=== PATIENT | male | born 1990 | race Caucasian/White ===

== ENCOUNTER 2016-06-03 13:10 | Emergency (ER) | payer BC ==
[2016-06-03] MEDS ORDERED: HYDROmorphone 1 MG/ML SYRINGE IVP STA (14:34)
[2016-06-03] MEDS ORDERED: HYDROmorphone 1 MG/ML SYRINGE ONE (14:41)
[2016-06-03] MEDS ORDERED: SODIUM CHLORIDE 0.9% 1,000 ML IV ONE (14:55)
[2016-06-03] MEDS ORDERED: oxyCODONE 5 MG TABLET PO STA (15:24)
[2016-06-03] MEDS ORDERED: oxyCODONE 5 MG TABLET ONE (15:26)
[2016-06-03] MEDS ORDERED: LIDOCAINE VISCOUS 2% 15 ML UDC MM STA (16:32)
[2016-06-03] MEDS ORDERED: MAG HYDROX/AL HYDROX/SIMETH 30 ML UDC PO STA (16:32)
[2016-06-03] MEDS ORDERED: SUCRALFATE 1 GM/10 ML UDC PO STA (16:32)
[2016-06-03] MEDS ORDERED: MAG HYDROX/AL HYDROX/SIMETH 30 ML UDC ONE (16:38)
[2016-06-03] MEDS ORDERED: SUCRALFATE 1 GM/10 ML UDC ONE (16:38)
[2016-06-03] MEDS ORDERED: LIDOCAINE VISCOUS 2% 15 ML UDC MM ONE (16:38)
== END 2016-06-03 17:05 | disposition home or self-care (01) ==
DX: K85.20 Alcohol induced acute pancreatitis without necrosis or infection (principal); R73.9 Hyperglycemia, unspecified

== ENCOUNTER 2016-06-03 23:05 | Inpatient (IN) | payer BC ==
[2016-06-03] MEDS ORDERED: LIDOCAINE VISCOUS 2% 15 ML UDC MM STA (23:38)
[2016-06-03] MEDS ORDERED: MAG HYDROX/AL HYDROX/SIMETH 30 ML UDC PO STA (23:38)
[2016-06-03] MEDS ORDERED: ONDANSETRON 4 MG/2 ML VIAL IVP STA (23:38)
[2016-06-03] MEDS ORDERED: FAMOTIDINE 20 MG/50 ML 50 ML IV ONE ×2 (23:38→23:41)
[2016-06-03] MEDS ORDERED: SODIUM CHLORIDE 0.9% 1,000 ML IV ONE (23:38)
[2016-06-03] MEDS ORDERED: LIDOCAINE VISCOUS 2% 15 ML UDC MM ONE (23:41)
[2016-06-03] MEDS ORDERED: MAG HYDROX/AL HYDROX/SIMETH 30 ML UDC ONE (23:41)
[2016-06-03] MEDS ORDERED: ONDANSETRON 4 MG/2 ML VIAL ONE (23:41)
[2016-06-04] MEDS ORDERED: fentaNYL 100 MCG/2 ML VIAL IVP STA (00:15)
[2016-06-04] MEDS ORDERED: PROMETHAZINE INJ 12.5 MG in SODIUM CHLORIDE 0.9% 50 ML IV STA (00:15)
[2016-06-04] MEDS ORDERED: HYDROmorphone 1 MG/ML SYRINGE IVP PRN ×3 (00:57→01:12)
[2016-06-04] MEDS ORDERED: SODIUM CHLORIDE FLUSH 0.9% 10 ML SYRINGE IVP PRN ×2 (00:57→01:17)
[2016-06-04] MEDS ORDERED: oxyCODONE 5 MG TABLET PO PRN ×3 (00:57→01:12)
[2016-06-04] MEDS ORDERED: ONDANSETRON 4 MG/2 ML VIAL IVP PRN ×4 (00:57→01:17)
[2016-06-04] MEDS ORDERED: ACETAMINOPHEN 325 MG TABLET PO PRN ×3 (00:57→01:12)
[2016-06-04] MEDS ORDERED: SODIUM CHLORIDE 0.9% 1,000 ML IV SCH (01:00)
[2016-06-04] MEDS: HYDROmorphone 1 MG/ML SYRINGE IVP PRN ×11 (01:26→22:22)
[2016-06-04] MEDS: SODIUM CHLORIDE 0.9% 1,000 ML IV SCH ×5 (01:46→22:20)
[2016-06-04] MEDS ORDERED: INSULIN REGULAR HUMAN 100 UNIT/1 ML 10 ML MDV ONE (03:51)
[2016-06-04] MEDS: SODIUM CHLORIDE FLUSH 0.9% 10 ML SYRINGE IVP SCH ×3 (05:30→20:36)
[2016-06-04] MEDS ORDERED: INSULIN REGULAR HUMAN 100 UNIT/1 ML 10 ML MDV SUBQ SCH (06:00)
[2016-06-04] MEDS ORDERED: SODIUM CHLORIDE FLUSH 0.9% 10 ML SYRINGE IVP SCH ×3 (06:00)
[2016-06-04] MEDS: oxyCODONE 5 MG TABLET PO PRN ×3 (06:20→18:35)
[2016-06-04] MEDS ORDERED: HEPARIN 5,000 UNIT/ML VIAL SUBQ SCH ×3 (09:00)
[2016-06-04] MEDS ORDERED: FAMOTIDINE 20 MG TABLET PO SCH (09:00)
[2016-06-04] MEDS: HEPARIN 5,000 UNIT/ML VIAL SUBQ SCH ×2 (09:08→20:36)
[2016-06-04] MEDS: FAMOTIDINE 20 MG TABLET PO SCH (09:08)
[2016-06-04] MEDS: SERTRALINE 50 MG TABLET PO SCH (09:09)
[2016-06-04] MEDS: INSULIN REGULAR HUMAN 100 UNIT/1 ML 10 ML MDV SUBQ SCH ×2 (12:38→18:34)
[2016-06-04] MEDS ORDERED: ATORVASTATIN 40 MG TABLET PO SCH (21:00)
[2016-06-05] MEDS: ZOLPIDEM 5 MG TABLET PO PRN ×2 (00:03→23:52)
[2016-06-05] MEDS: INSULIN REGULAR HUMAN 100 UNIT/1 ML 10 ML MDV SUBQ SCH ×5 (00:03→23:54)
[2016-06-05] MEDS: SODIUM CHLORIDE 0.9% 1,000 ML IV SCH ×4 (04:38→23:57)
[2016-06-05] MEDS: SODIUM CHLORIDE FLUSH 0.9% 10 ML SYRINGE IVP SCH ×3 (06:24→21:26)
[2016-06-05] MEDS: GEMFIBROZIL 600 MG TABLET PO SCH ×2 (06:29→16:09)
[2016-06-05] MEDS: ACETAMINOPHEN 325 MG TABLET PO PRN ×2 (06:46→10:54)
[2016-06-05] MEDS: SERTRALINE 50 MG TABLET PO SCH (08:09)
[2016-06-05] MEDS: oxyCODONE 5 MG TABLET PO PRN ×4 (08:09→23:52)
[2016-06-05] MEDS: FAMOTIDINE 20 MG TABLET PO SCH (08:10)
[2016-06-05] MEDS: HEPARIN 5,000 UNIT/ML VIAL SUBQ SCH ×2 (08:10→20:07)
[2016-06-05] MEDS: HYDROmorphone 1 MG/ML SYRINGE IVP PRN ×4 (13:14→21:29)
[2016-06-06] MEDS: HYDROmorphone 1 MG/ML SYRINGE IVP PRN ×2 (04:12→07:00)
[2016-06-06] MEDS: oxyCODONE 5 MG TABLET PO PRN ×3 (05:17→18:47)
[2016-06-06] MEDS: SODIUM CHLORIDE 0.9% 1,000 ML IV SCH (05:59)
[2016-06-06] MEDS: INSULIN REGULAR HUMAN 100 UNIT/1 ML 10 ML MDV SUBQ SCH ×2 (06:04→11:30)
[2016-06-06] MEDS: GEMFIBROZIL 600 MG TABLET PO SCH ×2 (07:00→15:32)
[2016-06-06] MEDS: SODIUM CHLORIDE FLUSH 0.9% 10 ML SYRINGE IVP SCH ×3 (07:45→21:28)
[2016-06-06] MEDS: FAMOTIDINE 20 MG TABLET PO SCH (08:31)
[2016-06-06] MEDS: ACETAMINOPHEN 325 MG TABLET PO PRN ×2 (08:31→21:31)
[2016-06-06] MEDS: SERTRALINE 50 MG TABLET PO SCH (08:31)
[2016-06-06] MEDS: HEPARIN 5,000 UNIT/ML VIAL SUBQ SCH ×2 (08:33→21:27)
[2016-06-06] MEDS: POLYETHYLENE GLYCOL 3350 17 GM PACKET PO SCH (10:12)
[2016-06-06] MEDS ORDERED: GLUCAGON 1 MG/ML VIAL SUBQ PRN (12:13)
[2016-06-06] MEDS ORDERED: DEXTROSE 5% 1,000 ML IV PRN (12:13)
[2016-06-06] MEDS ORDERED: DEXTROSE GEL 37.5 GM TUBE PO PRN (12:13)
[2016-06-06] MEDS ORDERED: DEXTROSE 50% ABBOJECT 25 GM/50 ML SYRINGE IVP PRN (12:13)
[2016-06-06] MEDS ORDERED: HYDROmorphone 1 MG/ML SYRINGE IVP PRN (14:53)
[2016-06-06] MEDS ORDERED: metFORMIN 500 MG TABLET PO SCH (17:00)
[2016-06-06] MEDS: INSULIN ASPART 300 UNIT/3 ML PEN SUBQ SCH ×2 (17:30→21:27)
[2016-06-06] MEDS ORDERED: ASPIRIN EC 325 MG TABLET PO PRN (17:40)
[2016-06-06] MEDS: ZOLPIDEM 5 MG TABLET PO PRN (23:57)
[2016-06-07] MEDS: GEMFIBROZIL 600 MG TABLET PO SCH (06:13)
[2016-06-07] MEDS: SODIUM CHLORIDE FLUSH 0.9% 10 ML SYRINGE IVP SCH (06:14)
[2016-06-07] MEDS: INSULIN ASPART 300 UNIT/3 ML PEN SUBQ SCH ×2 (08:01→11:44)
[2016-06-07] MEDS: FAMOTIDINE 20 MG TABLET PO SCH (09:47)
[2016-06-07] MEDS: SERTRALINE 50 MG TABLET PO SCH (09:48)
[2016-06-07] MEDS: HEPARIN 5,000 UNIT/ML VIAL SUBQ SCH (09:48)
[2016-06-07] MEDS: POLYETHYLENE GLYCOL 3350 17 GM PACKET PO SCH (09:52)
== END 2016-06-07 13:10 | disposition home or self-care (01) | DRG 439 ==
DX: K85.20 Alcohol induced acute pancreatitis without necrosis or infection (principal); F10.188 Alcohol abuse with other alcohol-induced disorder; Z68.41 Body mass index [BMI] 40.0-44.9, adult; E11.9 Type 2 diabetes mellitus without complications; E66.01 Morbid (severe) obesity due to excess calories; K86.0 Alcohol-induced chronic pancreatitis; E78.1 Pure hyperglyceridemia; F32.9 Major depressive disorder, single episode, unspecified; R00.0 Tachycardia, unspecified; E78.5 Hyperlipidemia, unspecified; Z71.3 Dietary counseling and surveillance; R73.9 Hyperglycemia, unspecified

== ENCOUNTER 2018-03-04 01:05 | Inpatient (IN) | payer BC, MEDICAID ==
[2018-03-04 01:24] LABS: GLUCOSE, URINE (UA) 100 mg/dL (NEGATIVE); KETONES,URINE (UA) >=80 mg/dL (NEGATIVE); LEUKOCYTE ESTERASE, URINE NEGATIVE (NEGATIVE); NITRITE,URINE NEGATIVE (NEGATIVE); OCCULT BLOOD,URINE SMALL (NEGATIVE); PH,URINE 5.5 PH (5.0-7.5); PROTEIN,URINE 100 mg/dL (NEGATIVE); UROBILINOGEN,URINE 0.2 (NORMAL) E.U./dL (NORMAL)
[2018-03-04 01:39] LABS: BILIRUBIN,URINE NEGATIVE (NEGATIVE); CLARITY,URINE CLEAR (CLEAR); ICTOTEST,URINE NEGATIVE
[2018-03-04 01:40] LABS: BACTERIA,URINE Few /HPF (None Seen); RBC,URINE 0-5 /HPF (0-5); SQUAMOUS EPITHELIAL CELL,UR MOD Squamous (<= Few)
--- NOTE | 2018-03-04 02:20 | CT Report ---
Reason: left flank pain Procedure Date: 03/04/2018 Accession Number: [id number] / [id number] Procedure: CT - Abdomen/Pelvis W/O CPT Code: FULL RESULT: EXAM: CT ABDOMEN AND PELVIS EXAM DATE: 03/04/2018 02:01 AM. CLINICAL HISTORY: Left flank pain. COMPARISONS: ABDOMEN/PELVIS W/ 09/08/2014 12:41 PM. TECHNIQUE: Routine helical CT imaging was performed through the abdomen and pelvis. IV contrast: . Enteric contrast: No. Reconstructions: Coronal and sagittal. In accordance with CT protocol optimization, one or more of the following dose reduction techniques were utilized for this exam: automated exposure control, adjustment of mA and/or KV based on patient size, or use of iterative reconstructive technique. FINDINGS: Lung Bases: Unremarkable. Liver: There is diffuse fatty infiltration of the liver. No focal lesions. Gallbladder/Bile Ducts: Unremarkable. Spleen: Spleen is normal in size. There is a low attenuating lesion in the mid spleen likely representing a splenic cyst. This measures 18 mm and is unchanged. Pancreas: The pancreas is slightly edematous and there is stranding of the fat around the pancreas. Some of the stranding extends to the posterior wall of the stomach and to a portion of the transverse colon. This peripancreatic inflammation also is contiguous with the celiac axis and partially surrounds the portal vein. There are no loculated fluid collections. Adrenal Glands: Normal. Kidneys: Normal. No masses or hydronephrosis. Peritoneal Cavity/Bowel: Normal. No free fluid, free air or adenopathy. No masses or acute inflammatory process. The appendix is well visualized and normal. Pelvic Organs: Normal. The bladder and visualized pelvic organs are within normal limits. Vasculature: No aneurysms or other significant abnormality. Bones: No significant abnormality. Other: There is a small amount of free fluid in the pelvis. IMPRESSION: 1. Findings compatible with acute pancreatitis. No pancreatic pseudocysts. Small amount of peritoneal fluid in the pelvis. 2. Diffuse fatty infiltration of the liver. 3. No renal calculi. RADIA
[2018-03-04 02:22] LABS: BASOPHILS # (AUTO) 0.1 10^3/uL (0.0-0.1); BASOPHILS % (AUTO) 0.7 %; EOSINOPHILS # (AUTO) 0.1 10^3/uL (0.0-0.7); EOSINOPHILS % (AUTO) 1.8 %; LYMPHOCYTES # (AUTO) 1.4 10^3/uL (1.5-3.5); LYMPHOCYTES % (AUTO) 18.3 %; MEAN CORPUSCULAR HEMOGLOBIN 34.6 pg (27.0-31.0); MEAN CORPUSCULAR HGB CONC 35.3 g/dL (32.0-36.0); MEAN CORPUSCULAR VOLUME 97.9 fL (80.0-94.0); MEAN PLATELET VOLUME 8.8 fL (7.4-11.4); MONOCYTES # (AUTO) 0.7 10^3/uL (0.0-1.0); MONOCYTES % (AUTO) 9.2 %; NEUTROPHILS # (AUTO) 5.3 10^3/uL (1.5-6.6); PLT - PLATELET COUNT 149 10^3/uL (130-450); WHITE BLOOD COUNT 7.6 x10^3/uL (4.8-10.8)
--- NOTE | 2018-03-04 02:30 | ED Physician Documentation ---
PD HPI BACK PAIN - Stated complaint Stated Complaint: BACK PAIN - Chief complaint Chief Complaint: Abd Pain - History obtained from History obtained from: Patient - History of Present Illness Timing - onset: How many days ago (3) Timing - duration: Days (3) Timing - details: Gradual onset, Still present, Waxing and waning Location: Mid, Left Quality: Pain, Spasm, Sharp, Similar to prior episodes Associated symptoms: No: Fever, Weakness, Numbness, Incontinent of urine, Unable to urinate, Hematuria, Incontinent of stool Improves with: Rest Worsened by: Movement Similar symptoms before: Diagnosis (back strain) Recently seen: Not recently seen - Additional information Additional information: 27-year-old male with a history of pancreatitis to the emergency department this morning complaining of pain in his back on the left side he has had for the past 2-3 days. He states this pain is better on arrival to the ED. He is noted to be diaphoretic and he has no explanation for this. He does not appear in pain on arrival. Review of Systems Constitutional: reports: Fatigue, Sweats. denies: Fever, Chills Eyes: denies: Decreased vision Ears: denies: Ear pain Nose: denies: Rhinorrhea / runny nose, Congestion Throat: denies: Dental pain / toothache, Sore throat Cardiac: denies: Chest pain / pressure, Palpitations Respiratory: denies: Dyspnea, Cough GI: reports: Abdominal Pain, Nausea, Vomiting : denies: Dysuria, Frequency Skin: denies: Rash Musculoskeletal: reports: Back pain. denies: Neck pain, Extremity pain Neurologic: denies: Generalized weakness, Focal weakness, Numbness PD PAST MEDICAL HISTORY - Past Medical History Cardiovascular: None Respiratory: None Endocrine/Autoimmune: None GI: Pancreatitis : None HEENT: None Psych: Anxiety Musculoskeletal: None Derm: None - Past Surgical History Past Surgical History: No - Present Medications Home Medications: Ambulatory Orders Medication Instructions Recorded Confirmed Sertraline HCl [Zoloft] 25 mg PO DAILY 07/05/14 06/03/16 Ondansetron Odt [Zofran Odt] 4 mg TL Q6H PRN #10 tablet 06/03/16 06/03/16 Oxycodone HCl/Acetaminophen 1 - 2 each PO Q6H PRN #14 tablet 06/03/16 06/03/16 [Percocet 5-325 mg Tablet] Blood Sugar Diagnostic [Glucometer 1 each ACHS #100 strip 06/07/16 Strips] Blood-Glucose Meter [Glucometer] 1 each ONCE #1 kit 06/07/16 Famotidine [Pepcid] 20 mg PO DAILY tablet 06/07/16 Gemfibrozil [Lopid] 600 mg PO BIDAC 30 Days tablet 06/07/16 Insulin Aspart [NovoLOG] 1 - 9 unit SUBQ 06/07/16 0800,1200,1700,2100 #60 pen - Allergies Allergies/Adverse Reactions: Allergies Allergy/AdvReac Type Severity Reaction Status Date / Time Sulfa (Sulfonamide Allergy Intermediate Rash Verified 03/04/18 01:17 Antibiotics) - Social History Does the pt smoke?: No Smoking Status: Never smoker Does the pt drink ETOH?: Yes Does the pt have substance abuse?: No - Immunizations Immunizations are current?: Yes - POLST Patient has POLST: No PD ED PE NORMAL - Vitals Vital signs reviewed: Yes (tachy and hypertensive maked) - General General: Alert and oriented X 3, No acute distress, Well developed/nourished, Other (diaphoretic ) - HEENT HEENT: Atraumatic, PERRL, EOMI - Neck Neck: Supple, no meningeal sign, No bony TTP - Cardiac Cardiac: No murmur, Other (tachy to 100) - Respiratory Respiratory: No respiratory distress, Clear bilaterally - Abdomen Abdomen: Soft, Non tender - Back Back: No CVA TTP, No spinal TTP - Derm Derm: Normal color, Warm and dry, No rash - Extremities Extremities: No deformity, No edema - Neuro Neuro: Alert and oriented X 3, 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, No motor deficit, No sensory deficit, Normal speech Eye Opening: Spontaneous Motor: Obeys Commands Verbal: Oriented GCS Score: 15 - Psych Psych: Normal mood, Normal affect Results - Vitals Vitals: Vital Signs - 24 hr 03/04/18 01:05 Temperature 36.9 C Heart Rate 111 H Respiratory 18 Rate Blood Pressure 170/125 H O2 Saturation 97 Oxygen O2 Source Room air - Labs Labs: Laboratory Tests 03/04/18 03/04/18 01:15 02:10 WBC 7.6 RBC 5.20 Hgb 18.0 Hct 50.9 MCV 97.9 H MCH 34.6 H MCHC 35.3 RDW 13.0 Plt Count 149 MPV 8.8 Neut # (Auto) 5.3 Lymph # (Auto) 1.4 L [place] # (Auto) 0.7 Eos # (Auto) 0.1 Baso # (Auto) 0.1 Absolute Nucleated RBC 0.00 Nucleated RBC % 0.1 Urine Color DARK YELLOW Urine Clarity CLEAR Urine pH 5.5 Ur Specific [place] >=1.030 H Urine Protein 100 H Urine Glucose (UA) 100 H Urine Ketones >=80 H Urine Occult Blood SMALL H Urine Nitrite NEGATIVE Urine Bilirubin NEGATIVE Urine Urobilinogen 0.2 (NORMAL) Ur Leukocyte Esterase NEGATIVE Urine RBC 0-5 Urine WBC 4-5 Ur Squamous Epith Cells MOD Squamous H Urine Bacteria Few Ur Microscopic Review INDICATED Urine Culture Comments NOT INDICATED - Rads (name of study) CT ab/pel without Radiology: Prelim report reviewed (Impression: 1. Findings compatible with acute pancreatitis. No pancreatic pseudocyst. Small amount of peritoneal fluid in the pelvis. 2 Diffuse fatty infiltration of liver. 3 no renal calculi.), EMP read indepedently, See rad report Procedures - Bedside sono Bedside sono by EMP: with the use of bedside ultrasound the left kidney is imaged and there is no e vidence of hydro and the kidney is sonographically non-tender. PD MEDICAL DECISION MAKING - ED course Complexity details: reviewed old records, reviewed results, re-evaluated patient, considered differential, d/w patient, d/w family ED course: 27-year-old male with a prior history of hyperlipidemia and alcohol abuse with a history of 3 prior admissions for pancreatitis has fallen off the wagon and began drinking again. He has had abdominal pain and nausea for several days and has stopped eating. He comes into the emergency department this morning complaining of back pain and this led to consideration for kidney stone as he really had no tenderness over the back or kidney and had no problems moving around. This scan showed the obvious acute pancreatitis. The patient was vague in his history initially complaining only of a pain in his back that he thought some pain medication might help. After he was confronted with the findings of pancreatitis on the CT scan he did come forth with the drinking history and abdominal pain when prompted. He indicates drinking for more than 16 days straight and he indicates he quit 2 days ago. He is diaphoretic with elevated blood pressure and pulse but he is not shaking. An IV is begun is administered intravenous saline and Dilaudid Zofran and Ativan. Departure - Departure Disposition: [facility] DC/Xfer Clinical Impression: Alcoholic pancreatitis Qualifiers: Chronicity: acute Acute pancreatitis complication: unspecified Qualified Code(s): K85.20 - Alcohol induced acute pancreatitis without necrosis or infection Condition: Serious
[2018-03-04] MEDS ORDERED: SODIUM CHLORIDE 0.9% 1,000 ML IV ONE ×2 (02:36→19:58)
[2018-03-04] MEDS ORDERED: HYDROmorphone 1 MG/ML CARPUJECT IVP STA (02:40)
[2018-03-04] MEDS ORDERED: LORazepam 2 MG/ML VIAL IVP STA (02:40)
[2018-03-04] MEDS ORDERED: ONDANSETRON 4 MG/2 ML VIAL IVP STA (02:40)
[2018-03-04 03:04] LABS: ALBUMIN 4.9 g/dL (3.2-5.5); ALBUMIN/GLOBULIN RATIO 1.4 (1.0-2.2); ALKALINE PHOSPHATASE 84 IU/L (42-121); ALT ALANINE AMINOTRANSFERASE 126 IU/L (10-60); AST ASPARTATE AMINOTRANSFERASE 83 IU/L (10-42); BUN - BLOOD UREA NITROGEN 11 mg/dL (6-20); CALCIUM 8.8 mg/dL (8.5-10.3); CARBON DIOXIDE - CO2 22 mmol/L (21-32); CHLORIDE 90 mmol/L (101-111); CREATININE 0.8 mg/dL (0.6-1.2); GFR - MDRD 118 (>89); GLUCOSE 229 mg/dL (70-100); SODIUM 132 mmol/L (135-145); TOTAL PROTEIN 8.3 g/dL (6.7-8.2)
[2018-03-04 03:07] LABS: LIPASE 913 U/L (22-51)
[2018-03-04] MEDS ORDERED: HYDROmorphone 1 MG/ML CARPUJECT IVP PRN (03:19)
[2018-03-04] MEDS ORDERED: ONDANSETRON 4 MG/2 ML VIAL IVP PRN ×2 (03:19→08:40)
[2018-03-04] MEDS ORDERED: PROMETHAZINE 25 MG/1 ML VIAL IM PRN (03:19)
[2018-03-04] MEDS ORDERED: PROCHLORPERAZINE 10 MG/2 ML VIAL IVP PRN (03:19)
[2018-03-04] MEDS: SODIUM CHLORIDE 0.9% 1,000 ML IV SCH ×3 (04:24→19:58)
--- NOTE | 2018-03-04 04:24 | HISTORY & PHYSICAL EXAMINATION ---
Chief Complaint - Chief Complaint Chief Complaint: Back pain History of Present Illness - Admitted From Admitted From:: Emergency department - History Obtained From Records Reviewed: Yes History obtained from: Patient Exam Limitations: None - History of Present Illness HPI Comment/Other: Patient is a 27-year-old gentleman with a past medical history significant for hypertriglyceridemia, morbid obesity, depression, alcohol abuse, fatty liver disease, insulin-dependent diabetes and recurrent pancreatitis who presented to the emergency department with a chief complaint of back pain. The patient has had 3 previous hospitalizations for alcoholic pancreatitis and alcoholic gastritis most recently he was admitted in May 2016. The patient states that since his last hospitalization he went quite a few months without drinking but then started drinking again. He states for the better part of the last year he has been drinking almost on a daily basis. He states he drinks about 4 large glasses of vodka a night. He states that over the last month he has been drinking more heavily because he has been feeling depressed. He states that he has been drinking every night until just 2 nights ago. He states that 2 days ago he began to develop back pain, nausea and vomiting. He states the pain was mostly located in the back but occasionally he would get some epigastric pain. He states he has had no appetite and has not eaten anything for the last 3 days. He states that his pain in his back and his epigastric area of his abdomen has been getting worse over the last 2 days to a point where today it was no longer tolerable and so he came into the emergency department. The patient states he has been having nausea and several episodes of vomiting over the last few days. He states he has not been able to eat anything at all for at least the last 2 days. The patient states he has stopped taking his insulin months ago because he just has not felt like taking it. He does take sertraline and metformin but those are the only 2 medications he takes with consistency. 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 The patient denies any fevers or chills. He denies any diarrhea. He denies any urinary urgency frequency or dysuria. He denies any focal neurologic deficits. Patient denies any headaches, blurred vision, runny nose, sore throat, nasal congestion, difficulty swallowing, chest pain, cough, shortness of air, orthopnea, PND, increased lower extremity swelling, muscle aches, joint pain, joint swelling, neck stiffness, recent unintentional weight loss, hair loss, skin changes, rash, polyuria, polydipsia, dizziness, lightheadedness, night sweats or any focal neurologic deficits. On presentation to the emergency department the patient was afebrile however he was tachycardic with a heart rate of 111 and hypertensive with a blood pressure of 170/125. The patient was not in any respiratory distress but he was in acute distress as he seems to be in a significant amount of pain. In the emergency room the patient was given a dose of IV Dilaudid, 1 L of IV fluid and IV Zofran. The patient's lab tests revealed that the patient has some mild hyponatremia and hypochloremia with an elevated glucose of 229. The patient's LFTs were all elevated as he had a total bilirubin of 3.0, AST of 83 and ALT of 126. The patient's lipase was significantly elevated at 913. The patient had a normal CBC but did have a slightly elevated MCV. The patient's blood alcohol level was negative. The patient underwent a CT of his abdomen and pelvis which revealed findings compatible with acute pancreatitis. There was no pancreatic pseudocysts but there was diffuse fatty infiltration of the liver. The patient was admitted [facility] the [facility] for acute alcoholic pancreatitis. History - Past Medical History Cardiovascular: reports: Hypertension, High cholesterol Respiratory: reports: None Neuro: reports: Headaches Endocrine/Autoimmune: reports: Type 2 diabetes GI: reports: Pancreatitis, Hepatitis, Other (Fatty liver disease) : reports: None HEENT: reports: None Psych: reports: Depression, Anxiety Musculoskeletal: reports: None Derm: reports: None MRSA Hx?: No - Family & Social History Family History: Mother: Alive and Well, Hypertension, Mental Illness, Father: Alive and Well Family History Comment/Other: Grandmother also had hypertension and father has atrial fibrillation. Living arrangement: At home Living Situation: With family Social History Notes: The patient lives in [place], [place] with his parents. He is single and does not have any children. 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 He drinks 4 glasses of vodka nightly and smokes a vapor pen. He denies any other illicit drug use. - POLST Patient has POLST: No POLST Status: Full Code Meds/Allgy - Home Medications Home Medications: Ambulatory Orders Medication Instructions Recorded Confirmed Sertraline HCl [Zoloft] 25 mg PO DAILY 07/05/14 06/03/16 Ondansetron Odt [Zofran Odt] 4 mg TL Q6H PRN #10 tablet 06/03/16 06/03/16 Oxycodone HCl/Acetaminophen 1 - 2 each PO Q6H PRN #14 tablet 06/03/16 06/03/16 [Percocet 5-325 mg Tablet] Blood Sugar Diagnostic [Glucometer 1 each ACHS #100 strip 06/07/16 Strips] Blood-Glucose Meter [Glucometer] 1 each ONCE #1 kit 06/07/16 Famotidine [Pepcid] 20 mg PO DAILY tablet 06/07/16 Gemfibrozil [Lopid] 600 mg PO BIDAC 30 Days tablet 06/07/16 Insulin Aspart [NovoLOG] 1 - 9 unit SUBQ 06/07/16 0800,1200,1700,2100 #60 pen - Allergies Allergies/Adverse Reactions: Allergies Allergy/AdvReac Type Severity Reaction Status Date / Time Sulfa (Sulfonamide Allergy Intermediate Rash Verified 03/04/18 01:17 Antibiotics) Review of Systems - Other Findings Other Findings: A comprehensive review of systems was performed the pertinent positives and negatives are stated above in the HPI and the remainder of the review of systems is negative. Prior Level of Functionality: Patient is able to perform all his activities of daily living independently. Exam - Vital Signs Reviewed Vital Signs: Yes Vital Signs: Vital Signs x48h Temp Pulse Resp BP Pulse Ox 03/04/18 03:36 97 15 175/121 H 96 03/04/18 02:47 82 15 178/122 H 95 03/04/18 01:05 36.9 C 111 H 18 170/125 H 97 - Physical Exam General Appearance: positive: Alert, Mild distress (Patient is grimacing with pain in his back), Other (Patient has a ketotic odor) Eyes Bilateral: positive: Normal inspection, PERRL, EOMI, No lid inflammation, Conjunctivae nml, Other (Scleral icterus present) ENT: positive: ENT inspection nml, Pharynx nml, Dry mucous membranes. negative: Purulent nasal drainage, Pharyngeal erythema, Oral lesions Neck: positive: Nml inspection, Thyroid nml, No JVD, Trachea midline Respiratory: positive: Chest non-tender, No respiratory distress, Breath sounds nml. negative: Wheezes, Rales, Rhonchi Cardiovascular: positive: Regular rate & rhythm, No murmur, No gallop Peripheral Pulses: positive: 2+ Abdomen: positive: No organomegaly, Nml bowel sounds, No distention, Tenderness (Patient has mild epigastric tenderness but otherwise has a benign abdominal examination as the belly is soft, nondistended, without peritoneal signs.). negative: Guarding, Rebound, Hepatomegaly Back: positive: Nml inspection. negative: CVA tenderness (R) Skin: positive: No rash, Warm, Dry, Other (Jaundiced appearing) Extremities: positive: Non-tender, Full ROM, Nml appearance Neurologic/Psychiatric: positive: Oriented x3, CN's nml (2-12), Motor nml, Sensation nml, Mood/affect nml Conclusion/Plan - Problem List (1) Alcoholic pancreatitis Conclusion/Plan: Patient presented with back pain and epigastric pain along with nausea and vomiting. Patient has been having symptoms for the last 2 days and they have become progressively worse. The patient is also been having poor appetite and has not eaten for 3 days. The patient admits to drinking excessive amount of alcohol especially over the last month. The patient has history of recurrent alcoholic pancreatitis and has been admitted to the hospital in the past for pancreatitis. The patient underwent CT of his abdomen and pelvis which did reveal acute pancreatitis along with fatty liver. The patient had no evidence of gallstones or cholecystitis. The patient did have elevated LFTs. Patient's lipase was elevated at 913. Plan: N.p.o. for bowel rest IV fluids IV Dilaudid for pain IV Zofran and Compazine for nausea control Monitor lipase and amylase along with LFTs Lipid panel to rule out hypertriglyceridemia as possible cause Abdominal ultrasound to rule out CBD stone Patient counseled on need for alcohol cessation Qualifiers: Chronicity: acute Acute pancreatitis complication: unspecified Qualified Code(s): K85.20 - Alcohol induced acute pancreatitis without necrosis or infection (2) Alcoholic hepatitis Conclusion/Plan: The patient's LFTs are elevated with a bilirubin of 3.0, AST of 83 and ALT of 126. Although this is not the typical AST to ALT ratio for someone with alcoholic hepatitis it is believed that the patient likely has elevated liver enzymes due to alcoholic hepatitis as he has been drinking quite heavily and has developed pancreatitis. 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 On presentation the patient has hyperglycemia with a blood glucose of 229. The patient states he does take metformin at home. The patient is also noncompliant with a diabetic diet. Plan: Patient was given counseling on the need for compliance and the risks of chronically uncontrolled blood glucose. We will hold patient's metformin Patient will be placed on n.p.o. sliding scale insulin We will check patient's hemoglobin A1c We will monitor patient's blood glucose 4 times daily Nutrition consult Qualifiers: Diabetes mellitus type: type 2 Diabetes mellitus termination clerk insulin use: without intermediate use Diabetes mellitus complication status: with hyperglycemia Qualified Code(s): E11.65 - Type 2 diabetes mellitus with hyperglycemia (4) Hypertension Conclusion/Plan: The patient is very hypertensive on presentation to the emergency department with a blood pressure of 170/125 and was persistently hypertensive while he was in the emergency department. The patient was a likely hypertensive secondary to his ongoing pain. The patient's pain will be treated and will continue to monitor the patient's blood pressure. If the patient's blood pressure remains persistently high even when his pain is controlled we will need to consider starting the patient on an antihypertensive medication. Qualifiers: Hypertension type: unspecified Qualified Code(s): I10 - Essential (primary) hypertension (5) Hyponatremia Conclusion/Plan: The patient is being admitted for acute pancreatitis and presents with a sodium of 132. The patient appears to be quite dry and dehydrated and likely has hypovolemic hyponatremia. The patient will be given IV fluids and we will continue to monitor his sodium. (6) Alcohol abuse Conclusion/Plan: The patient has a history of alcohol abuse and continues to drink alcohol on a daily basis. He drinks 4 drinks of vodka every night. The patient states he has never had withdrawal and he is gone 2 days now without drinking. The patient does have an elevated MCV. The patient has cut back his drinking in the past after episodes of pancreatitis. The patient has diffuse fatty infiltration of his liver likely secondary to his alcohol abuse and hypertriglyceridemia. As well as obesity and diabetes. I spent a long time cou nseling the patient on the need to quit drinking as it is doing further and further damage to his pancreas and his liver. The patient seemed to understand and does want to improve his health. A lot of the patient's drinking is secondary to depression. The patient will be given appropriate resources for dealing with his depression by social work. Plan: Check B12 and folate Monitor for symptoms of withdrawal IV fluids Social work consult (7) Depression Conclusion/Plan: Patient has a history of depression. According to him he has been drinking more heavily secondary to depression over the last month. Patient is on sertraline at home. Once patient is able to tolerate oral meds we will restart his sertraline. The patient appears to have slightly depressed mood on examination. Patient states that he drinks to deal with his depression. Patient was counseled on the need to seek help for his depression and not self medicate with alcohol or drugs. Qualifiers: Depression Type: major depressive disorder (8) Obesity (BMI 30.0-34.9) Conclusion/Plan: The patient has obesity with a BMI of 34.9. The patient was counseled on the risks involved with long-term obesity. The patient has already had some of the effects of obesity as he is developed diabetes, has hypertriglyceridemia, fatty liver and also appears to be developing hypertension. The patient was advised to exercise, eat right and make lifestyle changes to help him lose at least 15- 20 pounds. (9) Hypertriglyceridemia Conclusion/Plan: Patient has a history of hypertriglyceridemia and has been on gemfibrozil in the past but is noncompliant with medications currently. The patient's previous triglyceride level was in the 900s. Since the patient has developed pancreat itis once again we will check his lipid profile today. If his triglycerides continue to be elevated we will start him back up on gemfibrozil. (10) Non compliance w medication regimen Conclusion/Plan: The patient has a history of noncompliance with medication. The patient admits to being noncompliant with his medication currently. The patient was counseled on the need to be compliant with medications. He was also counseled on the need to quit drinking alcohol. A long time was spent with the patient discussing the risks of continuing to be noncompliant. The patient seemed to understand the conversation and I am hoping that this gets through to him. - Lab Results Lab results reviewed: Yes Fish Bones: 03/04/18 02:10 03/04/18 02:10 Other Lab Results: Laboratory Results WBC 7.6 x10^3/uL (4.8-10.8) 03/04/18 02:10 RBC 5.20 10^6/uL (4.70-6.10) 03/04/18 02:10 Hgb 18.0 g/dL (14.0-18.0) 03/04/18 02:10 Hct 50.9 % (42.0-52.0) 03/04/18 02:10 MCV 97.9 fL (80.0-94.0) H 03/04/18 02:10 MCH 34.6 pg (27.0-31.0) H 03/04/18 02:10 MCHC 35.3 g/dL (32.0-36.0) 03/04/18 02:10 RDW 13.0 % (12.0-15.0) 03/04/18 02:10 Plt Count 149 10^3/uL (130-450) 03/04/18 02:10 MPV 8.8 fL (7.4-11.4) 03/04/18 02:10 Neut # (Auto) 5.3 10^3/uL (1.5-6.6) 03/04/18 02:10 Lymph # (Auto) 1.4 10^3/uL (1.5-3.5) L 03/04/18 02:10 Foard # (Auto) 0.7 10^3/uL (0.0-1.0) 03/04/18 02:10 Eos # (Auto) 0.1 10^3/uL (0.0-0.7) 03/04/18 02:10 Baso # (Auto) 0.1 10^3/uL (0.0-0.1) 03/04/18 02:10 Absolute Nucleated RBC 0.00 x10^3/uL 03/04/18 02:10 Nucleated RBC % 0.1 /100WBC 03/04/18 02:10 Sodium 132 mmol/L (135-145) L 03/04/18 02:10 Potassium 4.2 mmol/L (3.5-5.0) 03/04/18 02:10 Chloride 90 mmol/L (101-111) L 03/04/18 02:10 Carbon Dioxide 22 mmol/L (21-32) 03/04/18 02:10 Anion Gap 20.0 (6-13) H 03/04/18 02:10 BUN 11 mg/dL (6-20) 03/04/18 02:10 Creatinine 0.8 mg/dL (0.6-1.2) 03/04/18 02:10 Estimated GFR (MDRD) 118 (>89) 03/04/18 02:10 Glucose 229 mg/dL (70-100) H 03/04/18 02:10 Calcium 8.8 mg/dL (8.5-10.3) 03/04/18 02:10 Total Bilirubin 3.0 mg/dL (0.2-1.0) H 03/04/18 02:10 AST 83 IU/L (10-42) H 03/04/18 02:10 ALT 126 IU/L (10-60) H 03/04/18 02:10 Alkaline Phosphatase 84 IU/L (42-121) 03/04/18 02:10 Total Protein 8.3 g/dL (6.7-8.2) H 03/04/18 02:10 Albumin 4.9 g/dL (3.2-5.5) 03/04/18 02:10 Globulin 3.4 g/dL (2.1-4.2) 03/04/18 02:10 Albumin/Globulin Ratio 1.4 (1.0-2.2) 03/04/18 02:10 Lipase 913 U/L (22-51) H 03/04/18 02:10 Urine Color DARK YELLOW 03/04/18 01:15 Urine Clarity CLEAR (CLEAR) 03/04/18 01:15 Urine pH 5.5 PH (5.0-7.5) 03/04/18 01:15 Ur Specific [place] >=1.030 (1.002-1.030) H 03/04/18 01:15 Urine Protein 100 mg/dL (NEGATIVE) H 03/04/18 01:15 Urine Glucose (UA) 100 mg/dL (NEGATIVE) H 03/04/18 01:15 Urine Ketones >=80 mg/dL (NEGATIVE) H 03/04/18 01:15 Urine Occult Blood SMALL (NEGATIVE) H 03/04/18 01:15 Urine Nitrite NEGATIVE (NEGATIVE) 03/04/18 01:15 Urine Bilirubin NEGATIVE (NEGATIVE) 03/04/18 01:15 Urine Urobilinogen 0.2 (NORMAL) E.U./dL (NORMAL) 03/04/18 01:15 Ur Leukocyte Esterase NEGATIVE (NEGATIVE) 03/04/18 01:15 Urine RBC 0-5 /HPF (0-5) 03/04/18 01:15 Urine WBC 4-5 /HPF (0-3) 03/04/18 01:15 Ur Squamous Epith Cells MOD Squamous (<= Few) H 03/04/18 01:15 Urine Bacteria Few /HPF (None Seen) 03/04/18 01:15 Ur Microscopic Review INDICATED 03/04/18 01:15 Urine Culture Comments NOT INDICATED 03/04/18 01:15 Ethyl Alcohol < 5.0 mg/dL 03/04/18 02:10 - Diagnostic Imaging Results Diagnostic Imaging Results: positive: Final report reviewed Diagnostic Imaging Results Comments: CT abdomen/pelvis: 1. Findings compatible with acute pancreatitis. No pancreatic pseudocyst. Small amount of peritoneal fluid in the pelvis. 2. Diffuse fatty infiltration of the liver. 3. No renal calculi Core Measures - Anticipated LOS I expect patient to be DC'd or transferred within 96 hours.: Yes - DVT/VTE - Prophylaxis VTE/DVT Device ordered at admit?: Yes
[2018-03-04] MEDS: SODIUM CHLORIDE FLUSH 0.9% 10 ML SYRINGE IVP PRN (04:25)
[2018-03-04] MEDS ORDERED: HYDROmorphone 2 MG/ML VIAL ONE (05:25)
[2018-03-04] MEDS: INSULIN REGULAR HUMAN 100 UNIT/1 ML 10 ML MDV SUBQ SCH ×3 (05:56→18:00)
[2018-03-04 06:07] LABS: BASOPHILS % (AUTO) 0.4 %; EOSINOPHILS # (AUTO) 0.1 10^3/uL (0.0-0.7); HGB - HEMOGLOBIN 17.1 g/dL (14.0-18.0); LYMPHOCYTES # (AUTO) 1.1 10^3/uL (1.5-3.5); LYMPHOCYTES % (AUTO) 17.9 %; MEAN CORPUSCULAR HEMOGLOBIN 34.8 pg (27.0-31.0); MEAN CORPUSCULAR HGB CONC 35.5 g/dL (32.0-36.0); MEAN CORPUSCULAR VOLUME 98.1 fL (80.0-94.0); MEAN PLATELET VOLUME 9.1 fL (7.4-11.4); MONOCYTES # (AUTO) 0.5 10^3/uL (0.0-1.0); MONOCYTES % (AUTO) 8.4 %; NEUTROPHILS # (AUTO) 4.5 10^3/uL (1.5-6.6); NEUTROPHILS % (AUTO) 71.3 %; PLT - PLATELET COUNT 121 10^3/uL (130-450); RED BLOOD COUNT 4.92 10^6/uL (4.70-6.10); RED CELL DISTRIBUTION WIDTH 12.9 % (12.0-15.0); WHITE BLOOD COUNT 6.4 x10^3/uL (4.8-10.8)
[2018-03-04 06:26] LABS: INR 1.1 (0.8-1.2); PT - PROTHROMBIN TIME 12.8 secs (9.9-12.6)
[2018-03-04 06:42] LABS: FOLATE 5.74 ng/mL (5.90 - >24.8)
[2018-03-04 06:44] LABS: ALBUMIN 4.3 g/dL (3.2-5.5); ALBUMIN/GLOBULIN RATIO 1.4 (1.0-2.2); ALKALINE PHOSPHATASE 74 IU/L (42-121); ALT ALANINE AMINOTRANSFERASE 113 IU/L (10-60); AMYLASE 308 U/L (28-100); AST ASPARTATE AMINOTRANSFERASE 71 IU/L (10-42); BILIRUBIN,TOTAL 3.5 mg/dL (0.2-1.0); BUN - BLOOD UREA NITROGEN 10 mg/dL (6-20); CALCIUM 8.2 mg/dL (8.5-10.3); CARBON DIOXIDE - CO2 20 mmol/L (21-32); CHLORIDE 94 mmol/L (101-111); CHOL/HDL RATIO 3.5 (<5.0); CHOLESTEROL 207 mg/dL; CREATININE 0.7 mg/dL (0.6-1.2); GFR - MDRD 137 (>89); GLUCOSE 223 mg/dL (70-100); HDL CHOLESTEROL 59 mg/dL; LDL CHOLESTEROL,CALCULATED 105 mg/dL; LDL/HDL RATIO 1.8 (<3.6); LIPASE 946 U/L (22-51); MAGNESIUM 1.5 mg/dL (1.7-2.8); PHOSPHORUS 2.8 mg/dL (2.5-4.6); SODIUM 132 mmol/L (135-145); TOTAL PROTEIN 7.3 g/dL (6.7-8.2); VLDL CHOLESTEROL 43 mg/dL
[2018-03-04] MEDS: HYDROmorphone 1 MG/ML CARPUJECT IVP PRN ×8 (07:25→22:18)
[2018-03-04 07:58] LABS: HEMOGLOBIN A1C 1.36 g/dL; HEMOGLOBIN A1C % 9.1 % (4.6-6.2)
[2018-03-04] MEDS ORDERED: MAGNESIUM SULFATE 2 GRAM 2 GM/50 ML BAG IV ONE (08:00)
[2018-03-04] MEDS: MULTIVITAMIN 10 ML, FOLIC ACID INJ 1 MG, THIAMINE INJ 100 MG, MAGNESIUM SULFATE 2 GM in... IV SCH ×5 (08:41)
[2018-03-04] MEDS ORDERED: LORazepam 2 MG/ML VIAL IVP PRN (08:52)
--- NOTE | 2018-03-04 08:53 | PROVIDER PROGRESS NOTE ---
Subjective - Prog Note Date Prog Note Date: 03/04/18 Prog Note Time: 08:52 - Subjective Pt reports feeling: Improved Objective - Vital Signs/Intake & Output Reviewed Vital Signs: Yes Vital Signs: Vital Signs x48h Temp Pulse Pulse Resp BP BP Pulse Ox 03/04/18 08:00 37.0 C 89 20 169/102 H 98 03/04/18 05:20 36.9 C 85 16 96 03/04/18 03:45 37.0 C 90 17 164/104 H 96 03/04/18 03:36 97 15 175/121 H 96 03/04/18 02:47 82 15 178/122 H 95 03/04/18 01:05 36.9 C 111 H 18 170/125 H 97 Intake & Output: Intake & Output 03/01/18 03/02/18 03/03/18 03/04/18 23:59 23:59 23:59 23:59 Intake Total 1200 Balance 1200 - Lab Results Fish Bones: 03/04/18 05:45 03/04/18 05:45 Other Labs: Lab Results x24hrs 03/04/18 03/04/18 03/04/18 Range/Units 05:49 05:45 05:45 WBC (4.8-10.8) x10^3/uL RBC (4.70-6.10) 10^6/uL Hgb (14.0-18.0) g/dL Hct (42.0-52.0) % MCV (80.0-94.0) fL MCH (27.0-31.0) pg MCHC (32.0-36.0) g/dL RDW (12.0-15.0) % Plt Count (130-450) 10^3/uL MPV (7.4-11.4) fL Neut # (Auto) (1.5-6.6) 10^3/uL Lymph # (Auto) (1.5-3.5) 10^3/uL [place] # (Auto) (0.0-1.0) 10^3/uL Eos # (Auto) (0.0-0.7) 10^3/uL Baso # (Auto) (0.0-0.1) 10^3/uL Absolute Nucleated RBC x10^3/uL Nucleated RBC % /100WBC PT (9.9-12.6) secs INR (0.8-1.2) Sodium (135-145) mmol/L Potassium (3.5-5.0) mmol/L Chloride (101-111) mmol/L Carbon Dioxide (21-32) mmol/L Anion Gap (6-13) BUN (6-20) mg/dL Creatinine (0.6-1.2) mg/dL Estimated GFR (MDRD) (>89) Glucose (70-100) mg/dL POC Whole Bld Glucose 236 H (70 - 100) mg/dL Glycated Hemoglobin 9.1 H (4.6-6.2) % Estim Average Glucose 214 H (70-100) Lactic Acid (0.5-2.2) mmol/L Calcium (8.5-10.3) mg/dL Phosphorus (2.5-4.6) mg/dL Magnesium (1.7-2.8) mg/dL Total Bilirubin (0.2-1.0) mg/dL AST (10-42) IU/L ALT (10-60) IU/L Alkaline Phosphatase (42-121) IU/L Total Protein (6.7-8.2) g/dL Albumin (3.2-5.5) g/dL Globulin (2.1-4.2) g/dL Albumin/Globulin Ratio (1.0-2.2) Triglycerides ( - 149) mg/dL Cholesterol ( - 199) mg/dL LDL Cholesterol, Calc ( - 129) mg/dL VLDL Cholesterol mg/dL HDL Cholesterol (60 - ) mg/dL LDL/HDL Ratio (<3.6) Cholesterol/HDL Ratio (<5.0) Amylase (28-100) U/L Lipase (22-51) U/L Vitamin B12 581 (180-914) pg/mL Folate 5.74 L (5.90 - >24.8) ng/mL Urine Color Urine Clarity (CLEAR) Urine pH (5.0-7.5) PH Ur Specific [place] (1.002-1.030) Urine Protein (NEGATIVE) mg/dL Urine Glucose (UA) (NEGATIVE) mg/dL Urine Ketones (NEGATIVE) mg/dL Urine Occult Blood (NEGATIVE) Urine Nitrite (NEGATIVE) Urine Bilirubin (NEGATIVE) Urine Urobilinogen (NORMAL) E.U./dL Ur Leukocyte Esterase (NEGATIVE) Urine RBC (0-5) /HPF Urine WBC (0-3) /HPF Ur Squamous Epith Cells (<= Few) Urine Bacteria (None Seen) /HPF Ur Microscopic Review Urine Culture Comments Ethyl Alcohol mg/dL 03/04/18 03/04/18 03/04/18 Range/Units 05:45 05:45 05:45 WBC 6.4 (4.8-10.8) x10^3/uL RBC 4.92 (4.70-6.10) 10^6/uL Hgb 17.1 (14.0-18.0) g/dL Hct 48.3 (42.0-52.0) % MCV 98.1 H (80.0-94.0) fL MCH 34.8 H (27.0-31.0) pg MCHC 35.5 (32.0-36.0) g/dL RDW 12.9 (12.0-15.0) % Plt Count 121 L (130-450) 10^3/uL MPV 9.1 (7.4-11.4) fL Neut # (Auto) 4.5 (1.5-6.6) 10^3/uL Lymph # (Auto) 1.1 L (1.5-3.5) 10^3/uL [place] # (Auto) 0.5 (0.0-1.0) 10^3/uL Eos # (Auto) 0.1 (0.0-0.7) 10^3/uL Baso # (Auto) 0.0 (0.0-0.1) 10^3/uL Absolute Nucleated RBC 0.01 x10^3/uL Nucleated RBC % 0.1 /100WBC PT 12.8 H (9.9-12.6) secs INR 1.1 (0.8-1.2) Sodium 132 L (135-145) mmol/L Potassium 3.7 (3.5-5.0) mmol/L Chloride 94 L (101-111) mmol/L Carbon Dioxide 20 L (21-32) mmol/L Anion Gap 18.0 H (6-13) BUN 10 (6-20) mg/dL Creatinine 0.7 (0.6-1.2) mg/dL Estimated GFR (MDRD) 137 (>89) Glucose 223 H (70-100) mg/dL POC Whole Bld Glucose (70 - 100) mg/dL Glycated Hemoglobin (4.6-6.2) % Estim Average Glucose (70-100) Lactic Acid (0.5-2.2) mmol/L Calcium 8.2 L (8.5-10.3) mg/dL Phosphorus 2.8 (2.5-4.6) mg/dL Magnesium 1.5 L (1.7-2.8) mg/dL Total Bilirubin 3.5 H (0.2-1.0) mg/dL AST 71 H (10-42) IU/L ALT 113 H (10-60) IU/L Alkaline Phosphatase 74 (42-121) IU/L Total Protein 7.3 (6.7-8.2) g/dL Albumin 4.3 (3.2-5.5) g/dL Globulin 3.0 (2.1-4.2) g/dL Albumin/Globulin Ratio 1.4 (1.0-2.2) Triglycerides 213 H ( - 149) mg/dL Cholesterol 207 H ( - 199) mg/dL LDL Cholesterol, Calc 105 ( - 129) mg/dL VLDL Cholesterol 43 mg/dL HDL Cholesterol 59 L (60 - ) mg/dL LDL/HDL Ratio 1.8 (<3.6) Cholesterol/HDL Ratio 3.5 (<5.0) Amylase 308 H (28-100) U/L Lipase 946 H (22-51) U/L Vitamin B12 (180-914) pg/mL Folate (5.90 - >24.8) ng/mL Urine Color Urine Clarity (CLEAR) Urine pH (5.0-7.5) PH Ur Specific [place] (1.002-1.030) Urine Protein (NEGATIVE) mg/dL Urine Glucose (UA) (NEGATIVE) mg/dL Urine Ketones (NEGATIVE) mg/dL Urine Occult Blood (NEGATIVE) Urine Nitrite (NEGATIVE) Urine Bilirubin (NEGATIVE) Urine Urobilinogen (NORMAL) E.U./dL Ur Leukocyte Esterase (NEGATIVE) Urine RBC (0-5) /HPF Urine WBC (0-3) /HPF Ur Squamous Epith Cells (<= Few) Urine Bacteria (None Seen) /HPF Ur Microscopic Review Urine Culture Comments Ethyl Alcohol mg/dL 03/04/18 03/04/18 03/04/18 Range/Units 05:35 02:10 02:10 WBC 7.6 (4.8-10.8) x10^3/uL RBC 5.20 (4.70-6.10) 10^6/uL Hgb 18.0 (14.0-18.0) g/dL Hct 50.9 (42.0-52.0) % MCV 97.9 H (80.0-94.0) fL MCH 34.6 H (27.0-31.0) pg MCHC 35.3 (32.0-36.0) g/dL RDW 13.0 (12.0-15.0) % Plt Count 149 (130-450) 10^3/uL MPV 8.8 (7.4-11.4) fL Neut # (Auto) 5.3 (1.5-6.6) 10^3/uL Lymph # (Auto) 1.4 L (1.5-3.5) 10^3/uL [place] # (Auto) 0.7 (0.0-1.0) 10^3/uL Eos # (Auto) 0.1 (0.0-0.7) 10^3/uL Baso # (Auto) 0.1 (0.0-0.1) 10^3/uL Absolute Nucleated RBC 0.00 x10^3/uL Nucleated RBC % 0.1 /100WBC PT (9.9-12.6) secs INR (0.8-1.2) Sodium 132 L (135-145) mmol/L Potassium 4.2 (3.5-5.0) mmol/L Chloride 90 L (101-111) mmol/L Carbon Dioxide 22 (21-32) mmol/L Anion Gap 20.0 H (6-13) BUN 11 (6-20) mg/dL Creatinine 0.8 (0.6-1.2) mg/dL Estimated GFR (MDRD) 118 (>89) Glucose 229 H (70-100) mg/dL POC Whole Bld Glucose (70 - 100) mg/dL Glycated Hemoglobin (4.6-6.2) % Estim Average Glucose (70-100) Lactic Acid 1.0 (0.5-2.2) mmol/L Calcium 8.8 (8.5-10.3) mg/dL Phosphorus (2.5-4.6) mg/dL Magnesium (1.7-2.8) mg/dL Total Bilirubin 3.0 H (0.2-1.0) mg/dL AST 83 H (10-42) IU/L ALT 126 H (10-60) IU/L Alkaline Phosphatase 84 (42-121) IU/L Total Protein 8.3 H (6.7-8.2) g/dL Albumin 4.9 (3.2-5.5) g/dL Globulin 3.4 (2.1-4.2) g/dL Albumin/Globulin Ratio 1.4 (1.0-2.2) Triglycerides ( - 149) mg/dL Cholesterol ( - 199) mg/dL LDL Cholesterol, Calc ( - 129) mg/dL VLDL Cholesterol mg/dL HDL Cholesterol (60 - ) mg/dL LDL/HDL Ratio (<3.6) Cholesterol/HDL Ratio (<5.0) Amylase (28-100) U/L Lipase 913 H (22-51) U/L Vitamin B12 (180-914) pg/mL Folate (5.90 - >24.8) ng/mL Urine Color Urine Clarity (CLEAR) Urine pH (5.0-7.5) PH Ur Specific [place] (1.002-1.030) Urine Protein (NEGATIVE) mg/dL Urine Glucose (UA) (NEGATIVE) mg/dL Urine Ketones (NEGATIVE) mg/dL Urine Occult Blood (NEGATIVE) Urine Nitrite (NEGATIVE) Urine Bilirubin (NEGATIVE) Urine Urobilinogen (NORMAL) E.U./dL Ur Leukocyte Esterase (NEGATIVE) Urine RBC (0-5) /HPF Urine WBC (0-3) /HPF Ur Squamous Epith Cells (<= Few) Urine Bacteria (None Seen) /HPF Ur Microscopic Review Urine Culture Comments Ethyl Alcohol < 5.0 mg/dL 03/04/18 Range/Units 01:15 WBC (4.8-10.8) x10^3/uL RBC (4.70-6.10) 10^6/uL Hgb (14.0-18.0) g/dL Hct (42.0-52.0) % MCV (80.0-94.0) fL MCH (27.0-31.0) pg MCHC (32.0-36.0) g/dL RDW (12.0-15.0) % Plt Count (130-450) 10^3/uL MPV (7.4-11.4) fL Neut # (Auto) (1.5-6.6) 10^3/uL Lymph # (Auto) (1.5-3.5) 10^3/uL [place] # (Auto) (0.0-1.0) 10^3/uL Eos # (Auto) (0.0-0.7) 10^3/uL Baso # (Auto) (0.0-0.1) 10^3/uL Absolute Nucleated RBC x10^3/uL Nucleated RBC % /100WBC PT (9.9-12.6) secs INR (0.8-1.2) Sodium (135-145) mmol/L Potassium (3.5-5.0) mmol/L Chloride (101-111) mmol/L Carbon Dioxide (21-32) mmol/L Anion Gap (6-13) BUN (6-20) mg/dL Creatinine (0.6-1.2) mg/dL Estimated GFR (MDRD) (>89) Glucose (70-100) mg/dL POC Whole Bld Glucose (70 - 100) mg/dL Glycated Hemoglobin (4.6-6.2) % Estim Average Glucose (70-100) Lactic Acid (0.5-2.2) mmol/L Calcium (8.5-10.3) mg/dL Phosphorus (2.5-4.6) mg/dL Magnesium (1.7-2.8) mg/dL Total Bilirubin (0.2-1.0) mg/dL AST (10-42) IU/L ALT (10-60) IU/L Alkaline Phosphatase (42-121) IU/L Total Protein (6.7-8.2) g/dL Albumin (3.2-5.5) g/dL Globulin (2.1-4.2) g/dL Albumin/Globulin Ratio (1.0-2.2) Triglycerides ( - 149) mg/dL Cholesterol ( - 199) mg/dL LDL Cholesterol, Calc ( - 129) mg/dL VLDL Cholesterol mg/dL HDL Cholesterol (60 - ) mg/dL LDL/HDL Ratio (<3.6) Cholesterol/HDL Ratio (<5.0) Amylase (28-100) U/L Lipase (22-51) U/L Vitamin B12 (180-914) pg/mL Folate (5.90 - >24.8) ng/mL Urine Color DARK YELLOW Urine Clarity CLEAR (CLEAR) Urine pH 5.5 (5.0-7.5) PH Ur Specific [place] >=1.030 H (1.002-1.030) Urine Protein 100 H (NEGATIVE) mg/dL Urine Glucose (UA) 100 H (NEGATIVE) mg/dL Urine Ketones >=80 H (NEGATIVE) mg/dL Urine Occult Blood SMALL H (NEGATIVE) Urine Nitrite NEGATIVE (NEGATIVE) Urine Bilirubin NEGATIVE (NEGATIVE) Urine Urobilinogen 0.2 (NORMAL) (NORMAL) E.U./dL Ur Leukocyte Esterase NEGATIVE (NEGATIVE) Urine RBC 0-5 (0-5) /HPF Urine WBC 4-5 (0-3) /HPF Ur Squamous Epith Cells MOD Squamous H (<= Few) Urine Bacteria Few (None Seen) /HPF Ur Microscopic Review INDICATED Urine Culture Comments NOT INDICATED Ethyl Alcohol mg/dL ABX Reporting Has patient been on IV antibiotics over the past 48 hours?: No
[2018-03-04] MEDS: ENALAPRILAT 1.25 MG/ML VIAL IVP SCH ×3 (09:27→17:42)
[2018-03-04] MEDS: oxyCODONE 5 MG TABLET PO PRN ×4 (09:28→22:18)
--- NOTE | 2018-03-04 10:12 | Ultrasound Report ---
Reason: pancreatitis, CBD stone Procedure Date: 03/04/2018 Accession Number: [id number] / [id number] Procedure: US - Abdomen Limited CPT Code: FULL RESULT: EXAM: ABDOMEN ULTRASOUND LIMITED, RUQ EXAM DATE: 03/04/2018 09:40 AM. CLINICAL HISTORY: Pancreatitis, CBD stone. COMPARISON: ABDOMEN/PELVIS W/O 03/04/2018 1:54 AM. TECHNIQUE: Real-time scanning was performed with static images obtained. FINDINGS: Liver: The parenchyma is echogenic diffusely. No definite focal masses are identified, but evaluation is limited secondary to the echogenicity. The right lobe of the liver measures up to 23.8 cm. Main portal vein flow: Hepatopetal. Gallbladder: Normal. No stones, wall thickening, or sonographic Macedo's sign. Biliary System: CBD measures 4.8 mm. No intrahepatic or extrahepatic ductal dilatation. Other: No right hydronephrosis. IMPRESSION: 1. Fatty infiltrated liver. 2. No cholelithiasis or cholecystitis. 3. No intrahepatic or extrahepatic biliary dilatation. RADIA
[2018-03-04] MEDS: POLYETHYLENE GLYCOL 3350 17 GM PACKET PO SCH (10:38)
[2018-03-04] MEDS: SODIUM CHLORIDE FLUSH 0.9% 10 ML SYRINGE IVP SCH ×2 (10:38→15:49)
[2018-03-04] MEDS: FAMOTIDINE 20 MG/50 ML 50 ML IV SCH ×2 (11:01→21:19)
[2018-03-04] MEDS: LORazepam 2 MG/ML VIAL IVP SCH ×2 (18:05→21:14)
[2018-03-04] MEDS ORDERED: INSULIN GLARGINE 300 UNIT/3 ML PEN SUBQ SCH (21:00)
[2018-03-04] MEDS: diphenhydrAMINE 25 MG CAPSULE PO SCH (21:31)
--- NOTE | 2018-03-05 00:05 | XRAY Report ---
Reason: Hypoxia, cough Procedure Date: 03/04/2018 Accession Number: [id number] / [id number] Procedure: XR - Chest 1 View X-Ray CPT Code: 02658 FULL RESULT: EXAM: CHEST RADIOGRAPHY EXAM DATE: 03/04/2018 11:55 PM. CLINICAL HISTORY: Hypoxia, cough. COMPARISON: ABDOMEN ACUTE 08/28/2013 12:12 AM. TECHNIQUE: 1 view. FINDINGS: Lungs/Pleura: No focal opacities evident. No pleural effusion. No pneumothorax. Low lung volumes. Mediastinum: Within exam limitations, the cardiomediastinal contour is normal. IMPRESSION: No acute cardiopulmonary disease seen. Low lung volumes. RADIA
[2018-03-05] MEDS: INSULIN REGULAR HUMAN 100 UNIT/1 ML 10 ML MDV SUBQ SCH ×3 (01:02→12:57)
[2018-03-05] MEDS: ENALAPRILAT 1.25 MG/ML VIAL IVP SCH ×4 (01:04→18:37)
[2018-03-05] MEDS: LORazepam 2 MG/ML VIAL IVP SCH ×7 (01:13→18:34)
[2018-03-05] MEDS: HYDROmorphone 1 MG/ML CARPUJECT IVP PRN ×3 (01:18→22:49)
[2018-03-05] MEDS: SODIUM CHLORIDE FLUSH 0.9% 10 ML SYRINGE IVP SCH ×3 (01:34→18:33)
[2018-03-05 05:23] LABS: BASOPHILS % (AUTO) 0.5 %; EOSINOPHILS # (AUTO) 0.2 10^3/uL (0.0-0.7); EOSINOPHILS % (AUTO) 2.3 %; HGB - HEMOGLOBIN 15.9 g/dL (14.0-18.0); LYMPHOCYTES # (AUTO) 0.9 10^3/uL (1.5-3.5); LYMPHOCYTES % (AUTO) 10.7 %; MEAN CORPUSCULAR HEMOGLOBIN 35.1 pg (27.0-31.0); MEAN CORPUSCULAR HGB CONC 35.4 g/dL (32.0-36.0); MEAN PLATELET VOLUME 8.7 fL (7.4-11.4); MONOCYTES # (AUTO) 0.8 10^3/uL (0.0-1.0); MONOCYTES % (AUTO) 9.6 %; NEUTROPHILS # (AUTO) 6.2 10^3/uL (1.5-6.6); NEUTROPHILS % (AUTO) 76.9 %; PLT - PLATELET COUNT 118 10^3/uL (130-450); RED BLOOD COUNT 4.54 10^6/uL (4.70-6.10); WHITE BLOOD COUNT 8.1 x10^3/uL (4.8-10.8)
[2018-03-05 05:44] LABS: ALBUMIN 3.7 g/dL (3.2-5.5); ALBUMIN/GLOBULIN RATIO 1.2 (1.0-2.2); CALCIUM 8.2 mg/dL (8.5-10.3); CREATININE 0.7 mg/dL (0.6-1.2); PHOSPHORUS 2.4 mg/dL (2.5-4.6); TOTAL PROTEIN 6.8 g/dL (6.7-8.2)
[2018-03-05] MEDS: oxyCODONE 5 MG TABLET PO PRN ×3 (05:50→17:15)
[2018-03-05] MEDS: SODIUM CHLORIDE 0.9% 1,000 ML IV SCH (06:26)
[2018-03-05] MEDS: FAMOTIDINE 20 MG/50 ML 50 ML IV SCH ×2 (08:24→20:44)
[2018-03-05] MEDS: POLYETHYLENE GLYCOL 3350 17 GM PACKET PO SCH (08:25)
[2018-03-05] MEDS ORDERED: LORazepam 1 MG TABLET PO ONE (10:45)
--- NOTE | 2018-03-05 11:19 | PROVIDER PROGRESS NOTE ---
Subjective - Prog Note Date Prog Note Date: 03/05/18 Prog Note Time: 10:00 - Subjective Pt reports feeling: No change Subjective: Yaw complains of "no one is checking on me" and threatened to leave. He complains of ongoing mid-epigastric pain. He denies chest pain, nausea, vomiting, rashes, headaches, hallucinations, tremors, profound anxiety, or a new cough. He is agreeable to ongoing medical care. Current Medications - Current Medications Current Medications: Active Medications Diphenhydramine HCl (Benadryl) 50 mg PO QPM [facility] Last Admin: 03/04/18 21:31 Dose: 50 mg Enalaprilat (Vasotec Inj) 1.25 mg IVP Q6HR [facility] Last Admin: 03/05/18 06:36 Dose: 1.25 mg Hydromorphone HCl (Dilaudid Inj Carp) 2 mg IVP Q2HR PRN PRN Reason: PAIN Last Admin: 03/05/18 01:18 Dose: 2 mg Famotidine (Pepcid 20 Mg/50 Ml) 50 mls @ 100 mls/hr IV BID [facility] Last Infusion: 03/05/18 08:54 Dose: Infused Multivitamins 10 ml/ Folic Acid 1 mg/ Thiamine HCl 100 mg / Magnesium Sulfate 2 gm/Sodium Chloride 1,015.2 mls @ 100 mls/hr IV DAILY [facility] Last Infusion: 03/04/18 19:50 Dose: Infused Sodium Chloride (Normal Saline 0.9%) 1,000 mls @ 125 mls/hr IV .Q8H [facility] Last Infusion: 03/05/18 10:00 Dose: 0 mls/hr Insulin Glargine (Lantus Solostar) 13 unit SUBQ QPM [facility] Insulin Human Regular (Novolin R) 1 - 9 unit SUBQ Q6HR [facility]; Protocol Last Admin: 03/05/18 06:54 Dose: 1 unit Lorazepam (Ativan Inj (Vial)) 1 mg IVP Q2H PRN PRN Reason: Anxiety Last Admin: 03/04/18 15:47 Dose: 1 mg Lorazepam (Ativan Inj (Vial)) 1 mg IVP Q3H [facility] Last Admin: 03/05/18 10:39 Dose: Not Given Ondansetron HCl (Zofran Inj) 4 mg IVP Q4HR PRN PRN Reason: Nausea / Vomiting Oxycodone HCl (Roxicodone) 5 mg PO Q4HR PRN PRN Reason: PAIN Last Admin: 03/05/18 05:50 Dose: 5 mg Polyethylene Glycol (Miralax) 17 gm PO DAILY [facility] Last Admin: 03/05/18 08:25 Dose: Not Given Prochlorperazine Edisylate (Compazine Inj) 10 mg IVP Q6HR PRN PRN Reason: Nausea / Vomiting Promethazine HCl (Phenergan Inj) 25 mg IM Q6HR PRN PRN Reason: Nausea / Vomiting Sodium Chloride (Normal Saline Flush 0.9%) 10 ml IVP PRN PRN PRN Reason: NEEDED PER PROVIDER ORDERS Last Admin: 03/04/18 04:25 Dose: 10 ml Sodium Chloride (Normal Saline Flush 0.9%) 10 ml IVP 0100,0900,1700 [facility] Last Admin: 03/05/18 08:25 Dose: Not Given Trazodone HCl (Desyrel) 50 mg PO QPM [facility] Metformin HCl 500 mg PO BIDWM 03/04/18 Sertraline HCl 200 mg PO DAILY 03/04/18 diphenhydrAMINE HCl [Diphenhydramine HCl] 50 mg PO QPM 03/04/18 Objective - Vital Signs/Intake & Output Reviewed Vital Signs: Yes Vital Signs: Vital Signs x48h Temp Pulse Resp BP Pulse Ox 03/05/18 07:55 37.7 C H 108 H 18 148/97 H 92 03/05/18 07:12 144/88 H 03/05/18 06:57 127 H 142/84 H 03/05/18 06:49 117 H 150/89 H 03/05/18 06:41 116 H 154/82 H 03/05/18 06:35 106 H 145/97 H 03/05/18 05:00 36.8 C 104 H 16 153/92 H 94 03/05/18 04:10 113 H 17 163/99 H 94 Intake & Output: Intake & Output 03/02/18 03/03/18 03/04/18 03/05/18 23:59 23:59 23:59 23:59 Intake Total 3365.2 1495.833 Output Total 1000 Balance 3365.2 495.833 - Objective General Appearance: positive: Alert, Moderate distress, Anxious, Lethargic Eyes Bilateral: positive: Normal inspection, No lid inflammation ENT: positive: Pharynx nml, Dry mucous membranes Neck: positive: No JVD, Stiff neck (large neck circumferance) Respiratory: positive: Chest non-tender, No respiratory distress, Breath sounds nml Cardiovascular: positive: Regular rate & rhythm, No gallop Peripheral Pulses: 2+ Radial (R), 2+ Radial (L) Abdomen: positive: Tenderness, Guarding, Abnml bowel sounds Back: positive: Nml inspection Skin: positive: No rash, Warm, Diaphoresis, Pallor Extremities: positive: Non-tender, Full ROM, Nml appearance Neurologic/Psychiatric: positive: Oriented x3, CN's nml (2-12), Disoriented to time (forgetful today), Weakness, Sensory loss, Depressed mood/affect Reflexes: Bicep (R): 3+, Bicep (L): 3+ - Lab Results Fish Bones: 03/05/18 05:04 03/05/18 05:04 Other Labs: Lab Results x24hrs 03/05/18 03/05/18 03/05/18 Range/Units 06:29 05:04 05:04 WBC 8.1 (4.8-10.8) x10^3/uL RBC 4.54 L (4.70-6.10) 10^6/uL Hgb 15.9 (14.0-18.0) g/dL Hct 45.0 (42.0-52.0) % MCV 99.0 H (80.0-94.0) fL MCH 35.1 H (27.0-31.0) pg MCHC 35.4 (32.0-36.0) g/dL RDW 13.0 (12.0-15.0) % Plt Count 118 L (130-450) 10^3/uL MPV 8.7 (7.4-11.4) fL Neut # (Auto) 6.2 (1.5-6.6) 10^3/uL Lymph # (Auto) 0.9 L (1.5-3.5) 10^3/uL [place] # (Auto) 0.8 (0.0-1.0) 10^3/uL Eos # (Auto) 0.2 (0.0-0.7) 10^3/uL Baso # (Auto) 0.0 (0.0-0.1) 10^3/uL Absolute Nucleated RBC 0.01 x10^3/uL Nucleated RBC % 0.1 /100WBC Sodium 133 L (135-145) mmol/L Potassium 4.1 (3.5-5.0) mmol/L Chloride 95 L (101-111) mmol/L Carbon Dioxide 25 (21-32) mmol/L Anion Gap 13.0 (6-13) BUN 9 (6-20) mg/dL Creatinine 0.7 (0.6-1.2) mg/dL Estimated GFR (MDRD) 137 (>89) Glucose 165 H (70-100) mg/dL POC Whole Bld Glucose 160 H (70 - 100) mg/dL Calcium 8.2 L (8.5-10.3) mg/dL Phosphorus 2.4 L (2.5-4.6) mg/dL Magnesium 2.0 (1.7-2.8) mg/dL Total Bilirubin 10.0 H (0.2-1.0) mg/dL AST 288 H (10-42) IU/L ALT 180 H (10-60) IU/L Alkaline Phosphatase 83 (42-121) IU/L Total Protein 6.8 (6.7-8.2) g/dL Albumin 3.7 (3.2-5.5) g/dL Globulin 3.1 (2.1-4.2) g/dL Albumin/Globulin Ratio 1.2 (1.0-2.2) Amylase 178 H (28-100) U/L Lipase 263 H (22-51) U/L 03/05/18 03/04/18 03/04/18 Range/Units 00:17 17:51 11:19 WBC (4.8-10.8) x10^3/uL RBC (4.70-6.10) 10^6/uL Hgb (14.0-18.0) g/dL Hct (42.0-52.0) % MCV (80.0-94.0) fL MCH (27.0-31.0) pg MCHC (32.0-36.0) g/dL RDW (12.0-15.0) % Plt Count (130-450) 10^3/uL MPV (7.4-11.4) fL Neut # (Auto) (1.5-6.6) 10^3/uL Lymph # (Auto) (1.5-3.5) 10^3/uL [place] # (Auto) (0.0-1.0) 10^3/uL Eos # (Auto) (0.0-0.7) 10^3/uL Baso # (Auto) (0.0-0.1) 10^3/uL Absolute Nucleated RBC x10^3/uL Nucleated RBC % /100WBC Sodium (135-145) mmol/L Potassium (3.5-5.0) mmol/L Chloride (101-111) mmol/L Carbon Dioxide (21-32) mmol/L Anion Gap (6-13) BUN (6-20) mg/dL Creatinine (0.6-1.2) mg/dL Estimated GFR (MDRD) (>89) Glucose (70-100) mg/dL POC Whole Bld Glucose 205 H 200 H 194 H (70 - 100) mg/dL Calcium (8.5-10.3) mg/dL Phosphorus (2.5-4.6) mg/dL Magnesium (1.7-2.8) mg/dL Total Bilirubin (0.2-1.0) mg/dL AST (10-42) IU/L ALT (10-60) IU/L Alkaline Phosphatase (42-121) IU/L Total Protein (6.7-8.2) g/dL Albumin (3.2-5.5) g/dL Globulin (2.1-4.2) g/dL Albumin/Globulin Ratio (1.0-2.2) Amylase (28-100) U/L Lipase (22-51) U/L ABX Reporting Has patient been on IV antibiotics over the past 48 hours?: No Assessment/Plan - Problem List (1) Alcoholic pancreatitis Impression: Patient presented with back pain, epigastric pain, poor appetite, along with nausea and vomiting. Patient has been these having symptoms for the last 2 days prior to admission. The patient admits to drinking excessive amount of alcohol especially over the last month. The patient has history of recurrent alcoholic pancreatitis and has been admitted to the hospital in the past for pancreatitis. An abdominal CT showed acute pancreatitis along with fatty liver. The patient had no evidence of gallstones or cholecystitis, so an abdominal ultrasound was ordered to confirm that, in fact, there are no sludge or stones seen. The patient has had abnormal labs showing; a lipase elevated to 946, now at 263. Amylase was 308, now 178 and LFTs; ALT of 126, now 180, AST of 83 now 288, bili 3.0 now 10.0. Plan: Continue clear liquid diet, IV fluids, IV Dilaudid for pain, IV Zofran and Compazine for nausea control, daily labs to monitor lipase and amylase along with LFTs, and monitor for worsening alcohol withdrawal. Qualifiers: Chronicity: acute Acute pancreatitis complication: unspecified Qualified Code(s): K85.20 - Alcohol induced acute pancreatitis without necrosis or infection (2) Alcoholic hepatitis Impression: The patient's LFTs continue to go up with an elevated bilirubin of 3.0, now up to 10.0, AST of 83 now 288, and ALT of 126 now up to 180. This is likely that the patient likely has elevated liver enzymes due to alcoholic hepatitis as he has been drinking quite heavily and has developed pancreatitis. Plan: Continue IV fluids, await hepatitis panel, daily labs, encourage alcohol cessation. Qualifiers: Ascites presence: without ascites Qualified Code(s): K70.10 - Alcoholic hepatitis without ascites (3) Alcohol abuse Impression: The patient has a history of alcohol abuse and continues to drink alcohol on a daily basis, that is thought to be caused by ongoing depression. He drinks 4 drinks of vodka every night. The patient states he has never had withdrawal and he is gone 2 days now without drinking. The patient does have an elevated MCV. The patient has cut back his drinking in the past after episodes of pancreatitis. The patient has diffuse fatty infiltration of his liver likely secondary to his alcohol abuse and hypertriglyceridemia. As well as obesity and diabetes. The admitting MD spent a long time counseling the patient on the need to quit drinking as it is doing further and further damage to his pancreas and his liver. The patient will be given appropriate resources for dealing with his depression by social work. Labs show a nearly normal B12 and folate. Plan: Treat with scheduled lorazepam, monitor for symptoms of withdrawal, IV fluids, social work consult. (4) Depression Impression: Patient has a history of depression. According to him he has been drinking more heavily secondary to depression over the last month. Patient is on sertraline at home, which will be resumed in the next few days after he is tolerating PO. The patient appears to have slightly depressed mood on examination. Plan: Continue to monitor for ongoing depressed mood, changes in behavior. Qualifiers: Depression Type: major depressive disorder (5) Non compliance w medication regimen Impression: The patient has a history of noncompliance with medication and admits to being noncompliant with his medication currently. The patient was counseled by the admitting MD on the need to be compliant with medications, and the need to quit drinking alcohol. A long time was spent with the patient discussing the risks of continuing to be noncompliant. The patient has shown some signs of alcohol withdrawal and today purposefully pulled out his IV, was getting ready to leave AMA, then his parents came into the room and the patient agrees to ongoing care. Plan: Continue to encourage inpatient treatment. (6) Obesity (BMI 30.0-34.9) Impression: The patient has obesity with a BMI of 34.9. The patient has already had some of the effects of obesity as he is developed diabetes, has hypertriglyceridemia, fatty liver and also appears to be developing hypertension. The patient was advised to exercise, eat right and make lifestyle changes to help him lose at least 15-20 pounds at the time of admission. Plan: Continue to treat acute illness, provide resources upon discharge. (7) Diabetes Impression: The patient was diagnosed with diabetes 2 years ago but has been noncompliant w ith insulin. Today the patient had an early AM blood sugar of 165, so I adjusted his Lantus from 10 units to 13 units to be given daily. The patient states he does take metformin at home and admits to noncompliance with a diabetic diet. His current hemoglobin A1C is 9.1%, showing poor control. Plan: Continue to hold metformin, clear liquid diet due to pancreatitis, sliding scale insulin, and blood sugar checks. Qualifiers: Diabetes mellitus type: type 2 Diabetes mellitus prison insulin use: without prison use Diabetes mellitus complication status: with hyperglycemia Qualified Code(s): E11.65 - Type 2 diabetes mellitus with hyperglycemia
[2018-03-05] MEDS: MULTIVITAMIN 10 ML, FOLIC ACID INJ 1 MG, THIAMINE INJ 100 MG, MAGNESIUM SULFATE 2 GM in... IV SCH ×5 (12:03)
[2018-03-05] MEDS: SODIUM CHLORIDE FLUSH 0.9% 10 ML SYRINGE IVP PRN ×2 (12:08→22:50)
[2018-03-05] MEDS: INSULIN ASPART 300 UNIT/3 ML PEN SUBQ SCH ×2 (18:32→20:52)
[2018-03-05] MEDS ORDERED: LORazepam 0.5 MG TABLET PO PRN (19:57)
[2018-03-05] MEDS: LORazepam 0.5 MG TABLET PO SCH (20:30)
[2018-03-05] MEDS: diphenhydrAMINE 25 MG CAPSULE PO SCH (20:39)
[2018-03-05] MEDS: INSULIN GLARGINE 300 UNIT/3 ML PEN SUBQ SCH (20:51)
[2018-03-05] MEDS: traZODone 50 MG TABLET PO SCH (21:34)
[2018-03-06] MEDS: oxyCODONE 5 MG TABLET PO PRN (00:47)
[2018-03-06] MEDS: LORazepam 0.5 MG TABLET PO SCH ×6 (00:47→21:34)
[2018-03-06] MEDS: SODIUM CHLORIDE FLUSH 0.9% 10 ML SYRINGE IVP SCH ×3 (00:49→17:10)
[2018-03-06] MEDS: HYDROmorphone 1 MG/ML CARPUJECT IVP PRN ×2 (01:41→17:54)
[2018-03-06 05:43] LABS: BASOPHILS % (AUTO) 0.6 %; EOSINOPHILS # (AUTO) 0.1 10^3/uL (0.0-0.7); EOSINOPHILS % (AUTO) 3.3 %; HGB - HEMOGLOBIN 14.2 g/dL (14.0-18.0); LYMPHOCYTES # (AUTO) 1.6 10^3/uL (1.5-3.5); LYMPHOCYTES % (AUTO) 35.6 %; MEAN CORPUSCULAR HEMOGLOBIN 34.7 pg (27.0-31.0); MEAN CORPUSCULAR HGB CONC 34.9 g/dL (32.0-36.0); MEAN CORPUSCULAR VOLUME 99.4 fL (80.0-94.0); MEAN PLATELET VOLUME 8.9 fL (7.4-11.4); MONOCYTES # (AUTO) 0.3 10^3/uL (0.0-1.0); MONOCYTES % (AUTO) 6.3 %; NEUTROPHILS # (AUTO) 2.4 10^3/uL (1.5-6.6); NEUTROPHILS % (AUTO) 54.2 %; PLT - PLATELET COUNT 96 10^3/uL (130-450); RED BLOOD COUNT 4.11 10^6/uL (4.70-6.10); RED CELL DISTRIBUTION WIDTH 12.6 % (12.0-15.0); WHITE BLOOD COUNT 4.5 x10^3/uL (4.8-10.8)
[2018-03-06] MEDS: SODIUM CHLORIDE 0.9% 1,000 ML IV SCH ×5 (05:54→21:51)
[2018-03-06 06:04] LABS: ALBUMIN 3.4 g/dL (3.2-5.5); ALBUMIN/GLOBULIN RATIO 1.1 (1.0-2.2); BILIRUBIN,TOTAL 7.3 mg/dL (0.2-1.0); CALCIUM 8.1 mg/dL (8.5-10.3); CREATININE 0.7 mg/dL (0.6-1.2); MAGNESIUM 2.2 mg/dL (1.7-2.8); PHOSPHORUS 2.2 mg/dL (2.5-4.6); TOTAL PROTEIN 6.4 g/dL (6.7-8.2)
[2018-03-06] MEDS ORDERED: POTASSIUM CHLORIDE 20 MEQ TABLET PO SCH (08:05)
[2018-03-06] MEDS: POLYETHYLENE GLYCOL 3350 17 GM PACKET PO SCH (10:52)
[2018-03-06] MEDS: LISINOPRIL 5 MG TABLET PO SCH (10:52)
[2018-03-06] MEDS: FAMOTIDINE 20 MG/50 ML 50 ML IV SCH (10:52)
[2018-03-06] MEDS: INSULIN ASPART 300 UNIT/3 ML PEN SUBQ SCH ×4 (10:53→20:36)
[2018-03-06] MEDS: NEUTRA-PHOS 250 MG TABLET PO SCH ×2 (12:09→17:07)
[2018-03-06] MEDS: MULTIVITAMIN TABLET PO SCH (12:09)
[2018-03-06] MEDS: FOLIC ACID 1 MG TABLET PO SCH (12:09)
[2018-03-06] MEDS: THIAMINE 100 MG TABLET PO SCH (12:09)
--- NOTE | 2018-03-06 15:40 | PROVIDER PROGRESS NOTE ---
Subjective - Prog Note Date Prog Note Date: 03/06/18 - Subjective Pt reports feeling: Improved Subjective: pt report he feel better, no abdominal pain, no N/V/D. Current Medications - Current Medications Current Medications: Active Medications Diphenhydramine HCl (Benadryl) 50 mg PO QPM [facility] Last Admin: 03/05/18 20:39 Dose: Not Given Famotidine (Pepcid) 20 mg PO BID [facility] Folic Acid () 1 mg PO DAILY [facility] Last Admin: 03/06/18 12:09 Dose: 1 mg Hydromorphone HCl (Dilaudid Inj Carp) 2 mg IVP Q2HR PRN PRN Reason: PAIN Last Admin: 03/06/18 01:41 Dose: 2 mg Sodium Chloride (Normal Saline 0.9%) 1,000 mls @ 125 mls/hr IV .Q8H [facility] Last Admin: 03/06/18 14:25 Dose: 125 mls/hr Insulin Aspart (Novolog) 1 - 5 unit SUBQ 0800,1200,1700,2100 [facility]; Protocol Last Admin: 03/06/18 12:11 Dose: 1 unit Insulin Glargine (Lantus Solostar) 13 unit SUBQ QPM [facility] Last Admin: 03/05/18 20:51 Dose: 13 unit Lisinopril (Zestril) 5 mg PO DAILY [facility] Last Admin: 03/06/18 10:52 Dose: 5 mg Lorazepam (Ativan Inj (Vial)) 1 mg IVP Q2H PRN PRN Reason: Anxiety Last Admin: 03/04/18 15:47 Dose: 1 mg Lorazepam (Ativan) 1 mg PO Q4H [facility] Last Admin: 03/06/18 14:25 Dose: 1 mg Multivitamins (Theragran) 1 tab PO DAILYWM [facility] Last Admin: 03/06/18 12:09 Dose: 1 tab Ondansetron HCl (Zofran Inj) 4 mg IVP Q4HR PRN PRN Reason: Nausea / Vomiting Oxycodone HCl (Roxicodone) 5 mg PO Q4HR PRN PRN Reason: PAIN Last Admin: 03/06/18 00:47 Dose: 5 mg Polyethylene Glycol (Miralax) 17 gm PO DAILY [facility] Last Admin: 03/06/18 10:52 Dose: Not Given Prochlorperazine Edisylate (Compazine Inj) 10 mg IVP Q6HR PRN PRN Reason: Nausea / Vomiting Promethazine HCl (Phenergan Inj) 25 mg IM Q6HR PRN PRN Reason: Nausea / Vomiting Sodium Chloride (Normal Saline Flush 0.9%) 10 ml IVP PRN PRN PRN Reason: NEEDED PER PROVIDER ORDERS Last Admin: 03/05/18 22:50 Dose: 10 ml Sodium Chloride (Normal Saline Flush 0.9%) 10 ml IVP 0100,0900,1700 [facility] Last Admin: 03/06/18 10:53 Dose: Not Given Sodium Phosphate (K-Phos Neutral) 250 mg PO TIDWM [facility] Last Admin: 03/06/18 12:09 Dose: 250 mg Thiamine HCl (Vitamin B-1) 100 mg PO DAILY [facility] Last Admin: 03/06/18 12:09 Dose: 100 mg Trazodone HCl (Desyrel) 50 mg PO QPM [facility] Last Admin: 03/05/18 21:34 Dose: 50 mg Metformin HCl 500 mg PO BIDWM 03/04/18 Sertraline HCl 200 mg PO DAILY 03/04/18 diphenhydrAMINE HCl [Diphenhydramine HCl] 50 mg PO QPM 03/04/18 Objective - Vital Signs/Intake & Output Reviewed Vital Signs: Yes Vital Signs: Vital Signs x48h Temp Pulse Resp BP Pulse Ox 03/06/18 08:01 37.1 C 85 18 144/96 H 94 Intake & Output: Intake & Output 03/03/18 03/04/18 03/05/18 03/06/18 23:59 23:59 23:59 23:59 Intake Total 3365.2 3254.166 3251.034 Output Total 1000 Balance 3365.2 2254.166 3251.034 - Objective General Appearance: positive: No acute distress, Alert. negative: Lethargic Eyes Bilateral: positive: Normal inspection, PERRL, No lid inflammation, Conjunctivae nml ENT: positive: ENT inspection nml, Pharynx nml, No signs of dehydration. negative: Purulent nasal drainage, Pharyngeal erythema, Oral lesions Neck: positive: Nml inspection, Thyroid nml, No JVD, Trachea midline. negative: Thyromegaly, Lymphadenopathy (R), Stiff neck, Swelling/bruising, Tracheal deviation Respiratory: positive: Chest non-tender, No respiratory distress, Breath sounds nml. negative: Wheezes, Rales, Rhonchi Cardiovascular: positive: Regular rate & rhythm, No murmur, No gallop. negative: Irregularly irregular, Extrasystoles, Tachycardia, Bradycardia, JVD present, Systolic murmur, Diastolic murmur Peripheral Pulses: 2+ Radial (R), 2+ Radial (L), 2+ Dorsalis pedis (R), 2+ Dorsalis pedis (L) Abdomen: positive: Non-tender, No organomegaly, Nml bowel sounds. negative: No distention, Tenderness, Guarding, Rebound Back: positive: Nml inspection. negative: CVA tenderness (R), CVA tenderness (L) Skin: positive: Color nml, No rash, Warm, Dry. negative: Cyanosis, Diaphoresis, Pallor Extremities: positive: Non-tender, Full ROM, Nml appearance. negative: Calf tenderness, Joint swelling, Jamila's sign/cords Neurologic/Psychiatric: positive: Oriented x3, Motor nml, Sensation nml, Mood/affect nml. negative: Weakness, Sensory loss, Facial droop, Slurred/abnml speech, Depressed mood/affect - Lab Results Fish Bones: 03/06/18 05:05 03/06/18 05:05 Other Labs: Lab Results x24hrs 03/06/18 03/06/18 03/06/18 Range/Units 07:19 05:05 05:05 WBC 4.5 L (4.8-10.8) x10^3/uL RBC 4.11 L (4.70-6.10) 10^6/uL Hgb 14.2 (14.0-18.0) g/dL Hct 40.9 L (42.0-52.0) % MCV 99.4 H (80.0-94.0) fL MCH 34.7 H (27.0-31.0) pg MCHC 34.9 (32.0-36.0) g/dL RDW 12.6 (12.0-15.0) % Plt Count 96 L (130-450) 10^3/uL MPV 8.9 (7.4-11.4) fL Neut # (Auto) 2.4 (1.5-6.6) 10^3/uL Lymph # (Auto) 1.6 (1.5-3.5) 10^3/uL [place] # (Auto) 0.3 (0.0-1.0) 10^3/uL Eos # (Auto) 0.1 (0.0-0.7) 10^3/uL Baso # (Auto) 0.0 (0.0-0.1) 10^3/uL Absolute Nucleated RBC 0.00 x10^3/uL Nucleated RBC % 0.1 /100WBC Sodium 135 (135-145) mmol/L Potassium 3.2 L (3.5-5.0) mmol/L Chloride 96 L (101-111) mmol/L Carbon Dioxide 26 (21-32) mmol/L Anion Gap 13.0 (6-13) BUN 6 (6-20) mg/dL Creatinine 0.7 (0.6-1.2) mg/dL Estimated GFR (MDRD) 137 (>89) Glucose 116 H (70-100) mg/dL POC Whole Bld Glucose 118 H (70 - 100) mg/dL Calcium 8.1 L (8.5-10.3) mg/dL Phosphorus 2.2 L (2.5-4.6) mg/dL Magnesium 2.2 (1.7-2.8) mg/dL Total Bilirubin 7.3 H (0.2-1.0) mg/dL AST 616 H (10-42) IU/L ALT 347 H (10-60) IU/L Alkaline Phosphatase 145 H (42-121) IU/L Total Protein 6.4 L (6.7-8.2) g/dL Albumin 3.4 (3.2-5.5) g/dL Globulin 3.0 (2.1-4.2) g/dL Albumin/Globulin Ratio 1.1 (1.0-2.2) Amylase 55 (28-100) U/L Lipase 100 H (22-51) U/L 03/05/18 03/05/18 Range/Units 20:39 17:27 WBC (4.8-10.8) x10^3/uL RBC (4.70-6.10) 10^6/uL Hgb (14.0-18.0) g/dL Hct (42.0-52.0) % MCV (80.0-94.0) fL MCH (27.0-31.0) pg MCHC (32.0-36.0) g/dL RDW (12.0-15.0) % Plt Count (130-450) 10^3/uL MPV (7.4-11.4) fL Neut # (Auto) (1.5-6.6) 10^3/uL Lymph # (Auto) (1.5-3.5) 10^3/uL [place] # (Auto) (0.0-1.0) 10^3/uL Eos # (Auto) (0.0-0.7) 10^3/uL Baso # (Auto) (0.0-0.1) 10^3/uL Absolute Nucleated RBC x10^3/uL Nucleated RBC % /100WBC Sodium (135-145) mmol/L Potassium (3.5-5.0) mmol/L Chloride (101-111) mmol/L Carbon Dioxide (21-32) mmol/L Anion Gap (6-13) BUN (6-20) mg/dL Creatinine (0.6-1.2) mg/dL Estimated GFR (MDRD) (>89) Glucose (70-100) mg/dL POC Whole Bld Glucose 170 H 150 H (70 - 100) mg/dL Calcium (8.5-10.3) mg/dL Phosphorus (2.5-4.6) mg/dL Magnesium (1.7-2.8) mg/dL Total Bilirubin (0.2-1.0) mg/dL AST (10-42) IU/L ALT (10-60) IU/L Alkaline Phosphatase (42-121) IU/L Total Protein (6.7-8.2) g/dL Albumin (3.2-5.5) g/dL Globulin (2.1-4.2) g/dL Albumin/Globulin Ratio (1.0-2.2) Amylase (28-100) U/L Lipase (22-51) U/L ABX Reporting Has patient been on IV antibiotics over the past 48 hours?: No Assessment/Plan - Problem List (1) Alcoholic pancreatitis Impression: Impression: 03/06 improved, lipase is down to 100. pt feel better, No abdominal pain, N/V/D continue IVF of NS continue clear liquid continue lab monitor Patient presented with back pain, epigastric pain, poor appetite, along with nausea and vomiting. Patient has been these having symptoms for the last 2 days prior to admission. The patient admits to drinking excessive amount of alcohol especially over the last month. The patient has history of recurrent alcoholic pancreatitis and has been admitted to the hospital in the past for pancreatitis. An abdominal CT showed acute pancreatitis along with fatty liver. The patient had no evidence of gallstones or cholecystitis, so an abdominal ultrasound was ordered to confirm that, in fact, there are no sludge or stones seen. The patient has had abnormal labs showing; a lipase elevated to 946, now at 263. Amylase was 308, now 178 and LFTs; ALT of 126, now 180, AST of 83 now 288, bili 3.0 now 10.0. Plan: Continue clear liquid diet, IV fluids, IV Dilaudid for pain, IV Zofran and Compazine for nausea control, daily labs to monitor lipase and amylase along with LFTs, and monitor for worsening alcohol withdrawal. (2) Alcoholic hepatitis Impression: 03/06 liver enzyme increase but bili is down, unknown etiology. continue monitor lab, hold hepatic toxic agents continue support The patient's LFTs continue to go up with an elevated bilirubin of 3.0, now up to 10.0, AST of 83 now 288, and ALT of 126 now up to 180. This is likely that the patient likely has elevated liver enzymes due to alcoholic hepatitis as he has been drinking quite heavily and has developed pancreatitis. Plan: Continue IV fluids, await hepatitis panel, daily labs, encourage alcohol cessation. (3) Alcohol abuse Impression: 03/06 advise pt quit alcohol continue CAWA protocol The patient has a history of alcohol abuse and continues to drink alcohol on a daily basis, that is thought to be caused by ongoing depression. He drinks 4 drinks of vodka every night. The patient states he has never had withdrawal and he is gone 2 days now without drinking. The patient does have an elevated MCV. The patient has cut back his drinking in the past after episodes of pancreatitis. The patient has diffuse fatty infiltration of his liver likely secondary to his alcohol abuse and hypertriglyceridemia. As well as obesity and diabetes. The admitting MD spent a long time counseling the patient on the need to quit drinking as it is doing further and further damage to his pancreas and his liver. The patient will be given appropriate resources for dealing with his depression by social work. Labs show a nearly normal B12 and folate. Plan: Treat with scheduled lorazepam, monitor for symptoms of withdrawal, IV fluids, social work consult. (4) Depression Impression: Patient has a history of depression. According to him he has been drinking more heavily secondary to depression over the last month. Patient is on sertraline at home, which will be resumed in the next few days after he is tolerating PO. The patient appears to have slightly depressed mood on examination. Plan: Continue to monitor for ongoing depressed mood, changes in behavior. (5) Non compliance w medication regimen Impression: The patient has a history of noncompliance with medication and admits to being noncompliant with his medication currently. The patient was counseled by the admitting MD on the need to be compliant with medications, and the need to quit drinking alcohol. A long time was spent with the patient discussing the risks of continuing to be noncompliant. The patient has shown some signs of alcohol withdrawal and today purposefully pulled out his IV, was getting ready to leave AMA, then his parents came into the room and the patient agrees to ongoing care. Plan: Continue to encourage inpatient treatment. (6) Obesity (BMI 30.0-34.9) Impression: The patient has obesity with a BMI of 34.9. The patient has already had some of the effects of obesity as he is developed diabetes, has hypertriglyceridemia, fatty liver and also appears to be developing hypertension. The patient was advised to exercise, eat right and make lifestyle changes to help him lose at least 15-20 pounds at the time of admission. Plan: Continue to treat acute illness, provide resources upon discharge. (7) Diabetes Impression: stable, continue slide scale The patient was diagnosed with diabetes 2 years ago but has been noncompliant with insulin. Today the patient had an early AM blood sugar of 165, so I adjusted his Lantus from 10 units to 13 units to be given daily. The patient states he does take metformin at home and admits to noncompliance with a diabetic diet. His current hemoglobin A1C is 9.1%, showing poor control. Plan: Continue to hold metformin, clear liquid diet due to pancreatitis, sliding scale insulin, and blood sugar checks. Qualifiers: Chronicity: acute Acute pancreatitis complication: unspecified Qualified Code(s): K85.20 - Alcohol induced acute pancreatitis without necrosis or infection
[2018-03-06] MEDS: SODIUM CHLORIDE FLUSH 0.9% 10 ML SYRINGE IVP PRN (17:55)
[2018-03-06] MEDS: FAMOTIDINE 20 MG TABLET PO SCH (20:35)
[2018-03-06] MEDS: INSULIN GLARGINE 300 UNIT/3 ML PEN SUBQ SCH (20:35)
[2018-03-06] MEDS: traZODone 50 MG TABLET PO SCH (20:35)
[2018-03-06] MEDS: diphenhydrAMINE 25 MG CAPSULE PO SCH (20:35)
[2018-03-07] MEDS: SODIUM CHLORIDE FLUSH 0.9% 10 ML SYRINGE IVP SCH ×3 (02:00→11:05)
[2018-03-07] MEDS: oxyCODONE 5 MG TABLET PO PRN ×4 (02:05→20:02)
[2018-03-07] MEDS: LORazepam 0.5 MG TABLET PO SCH ×6 (02:07→22:02)
[2018-03-07 06:30] LABS: BASOPHILS % (AUTO) 0.8 %; EOSINOPHILS # (AUTO) 0.1 10^3/uL (0.0-0.7); EOSINOPHILS % (AUTO) 3.8 %; HGB - HEMOGLOBIN 13.6 g/dL (14.0-18.0); LYMPHOCYTES # (AUTO) 1.3 10^3/uL (1.5-3.5); LYMPHOCYTES % (AUTO) 36.6 %; MEAN CORPUSCULAR HEMOGLOBIN 34.8 pg (27.0-31.0); MEAN CORPUSCULAR HGB CONC 35.1 g/dL (32.0-36.0); MEAN CORPUSCULAR VOLUME 99.2 fL (80.0-94.0); MEAN PLATELET VOLUME 9.4 fL (7.4-11.4); MONOCYTES # (AUTO) 0.3 10^3/uL (0.0-1.0); MONOCYTES % (AUTO) 9.7 %; NEUTROPHILS # (AUTO) 1.8 10^3/uL (1.5-6.6); NEUTROPHILS % (AUTO) 49.1 %; PLT - PLATELET COUNT 86 10^3/uL (130-450); RED BLOOD COUNT 3.91 10^6/uL (4.70-6.10); WHITE BLOOD COUNT 3.6 x10^3/uL (4.8-10.8)
[2018-03-07 06:47] LABS: ALBUMIN 3.1 g/dL (3.2-5.5); BILIRUBIN,TOTAL 4.8 mg/dL (0.2-1.0); CALCIUM 8.3 mg/dL (8.5-10.3); CREATININE 0.7 mg/dL (0.6-1.2); MAGNESIUM 1.6 mg/dL (1.7-2.8); TOTAL PROTEIN 6.1 g/dL (6.7-8.2)
[2018-03-07] MEDS: SODIUM CHLORIDE 0.9% 1,000 ML IV SCH ×2 (06:47→22:03)
[2018-03-07] MEDS ORDERED: MAGNESIUM SULFATE 2 GRAM 2 GM/50 ML BAG IV ONE (07:00)
[2018-03-07] MEDS ORDERED: POTASSIUM CHLORIDE 20 MEQ TABLET PO SCH (07:44)
[2018-03-07] MEDS ORDERED: SODIUM CHLORIDE 0.9% 0 ML IV ONE (07:57)
[2018-03-07] MEDS ORDERED: POTASSIUM PHOSPHATE 15 MMOL in SODIUM CHLORIDE 0.9% 250 ML IV ONE (08:00)
[2018-03-07] MEDS: SODIUM CHLORIDE FLUSH 0.9% 10 ML SYRINGE IVP PRN ×4 (08:34→19:02)
[2018-03-07] MEDS: THIAMINE 100 MG TABLET PO SCH (08:40)
[2018-03-07] MEDS: NEUTRA-PHOS 250 MG TABLET PO SCH ×3 (08:40→15:51)
[2018-03-07] MEDS: LISINOPRIL 5 MG TABLET PO SCH (08:40)
[2018-03-07] MEDS: FOLIC ACID 1 MG TABLET PO SCH (08:40)
[2018-03-07] MEDS: MULTIVITAMIN TABLET PO SCH (08:40)
[2018-03-07] MEDS: FAMOTIDINE 20 MG TABLET PO SCH ×2 (08:40→20:02)
[2018-03-07] MEDS: POLYETHYLENE GLYCOL 3350 17 GM PACKET PO SCH (08:41)
[2018-03-07] MEDS: INSULIN ASPART 300 UNIT/3 ML PEN SUBQ SCH ×4 (08:44→20:04)
[2018-03-07] MEDS: MAGNESIUM OXIDE 400 MG TABLET PO SCH (10:03)
[2018-03-07] MEDS: HYDROmorphone 1 MG/ML CARPUJECT IVP PRN ×5 (11:02→22:02)
--- NOTE | 2018-03-07 15:06 | PROVIDER PROGRESS NOTE ---
Subjective - Prog Note Date Prog Note Date: 03/07/18 - Subjective Pt reports feeling: Worse Subjective: pt report he still feel some nausea but no vomiting. pt denies abdominal pain, fever, chill, CP, SOB. Current Medications - Current Medications Current Medications: Active Medications Diphenhydramine HCl (Benadryl) 50 mg PO QPM [facility] Last Admin: 03/06/18 20:35 Dose: 50 mg Famotidine (Pepcid) 20 mg PO BID [facility] Last Admin: 03/07/18 08:40 Dose: 20 mg Folic Acid () 1 mg PO DAILY [facility] Last Admin: 03/07/18 08:40 Dose: 1 mg Hydromorphone HCl (Dilaudid Inj Carp) 2 mg IVP Q2HR PRN PRN Reason: PAIN Last Admin: 03/07/18 13:39 Dose: 2 mg Sodium Chloride (Normal Saline 0.9%) 1,000 mls @ 125 mls/hr IV .Q8H [facility] Last Admin: 03/07/18 06:47 Dose: 125 mls/hr Insulin Aspart (Novolog) 1 - 5 unit SUBQ 0800,1200,1700,2100 [facility]; Protocol Last Admin: 03/07/18 11:49 Dose: 1 unit Insulin Glargine (Lantus Solostar) 13 unit SUBQ QPM [facility] Last Admin: 03/06/18 20:35 Dose: 13 unit Lisinopril (Zestril) 5 mg PO DAILY [facility] Last Admin: 03/07/18 08:40 Dose: 5 mg Lorazepam (Ativan Inj (Vial)) 1 mg IVP Q2H PRN PRN Reason: Anxiety Last Admin: 03/04/18 15:47 Dose: 1 mg Lorazepam (Ativan) 1 mg PO Q4H [facility] Last Admin: 03/07/18 13:39 Dose: 1 mg Magnesium Oxide (Mag Ox) 400 mg PO DAILYWM [facility] Last Admin: 03/07/18 10:03 Dose: 400 mg Multivitamins (Theragran) 1 tab PO DAILYWM [facility] Last Admin: 03/07/18 08:40 Dose: 1 tab Ondansetron HCl (Zofran Inj) 4 mg IVP Q4HR PRN PRN Reason: Nausea / Vomiting Last Admin: 03/07/18 08:30 Dose: 4 mg Oxycodone HCl (Roxicodone) 5 mg PO Q4HR PRN PRN Reason: PAIN Last Admin: 03/07/18 08:30 Dose: 5 mg Polyethylene Glycol (Miralax) 17 gm PO DAILY [facility] Last Admin: 03/07/18 08:41 Dose: Not Given Prochlorperazine Edisylate (Compazine Inj) 10 mg IVP Q6HR PRN PRN Reason: Nausea / Vomiting Promethazine HCl (Phenergan Inj) 25 mg IM Q6HR PRN PRN Reason: Nausea / Vomiting Sodium Chloride (Normal Saline Flush 0.9%) 10 ml IVP PRN PRN PRN Reason: NEEDED PER PROVIDER ORDERS Last Admin: 03/07/18 13:42 Dose: 10 ml Sodium Chloride (Normal Saline Flush 0.9%) 10 ml IVP 0100,0900,1700 [facility] Last Admin: 03/07/18 11:05 Dose: 10 ml Sodium Phosphate (K-Phos Neutral) 250 mg PO TIDWM [facility] Last Admin: 03/07/18 11:46 Dose: 250 mg Thiamine HCl (Vitamin B-1) 100 mg PO DAILY [facility] Last Admin: 03/07/18 08:40 Dose: 100 mg Trazodone HCl (Desyrel) 50 mg PO QPM [facility] Last Admin: 03/06/18 20:35 Dose: 50 mg Metformin HCl 500 mg PO BIDWM 03/04/18 Sertraline HCl 200 mg PO DAILY 03/04/18 diphenhydrAMINE HCl [Diphenhydramine HCl] 50 mg PO QPM 03/04/18 Objective - Vital Signs/Intake & Output Reviewed Vital Signs: Yes Vital Signs: Vital Signs x48h Temp Pulse Resp BP Pulse Ox 03/07/18 08:00 37.6 C H 76 18 149/105 H 96 Intake & Output: Intake & Output 03/04/18 03/05/18 03/06/18 03/07/18 23:59 23:59 23:59 23:59 Intake Total 3365.2 3254.166 4480.201 3450 Output Total 1000 Balance 3365.2 2254.166 4480.201 3450 - Objective General Appearance: positive: No acute distress, Alert. negative: Lethargic Eyes Bilateral: positive: Normal inspection, PERRL, No lid inflammation, Conjunctivae nml ENT: positive: ENT inspection nml, Pharynx nml, No signs of dehydration. nega tive: Purulent nasal drainage, Pharyngeal erythema, Oral lesions Neck: positive: Nml inspection, Thyroid nml, No JVD, Trachea midline. negative: Thyromegaly, Lymphadenopathy (R), Lymphadenopathy (L), Stiff neck, Swelling/bruising, Tracheal deviation Respiratory: positive: Chest non-tender, No respiratory distress, Breath sounds nml. negative: Wheezes, Rales, Rhonchi Cardiovascular: positive: Regular rate & rhythm, No murmur, No gallop. negative: Irregularly irregular, Extrasystoles, Tachycardia, Bradycardia, JVD present, Systolic murmur, Diastolic murmur Peripheral Pulses: 2+ Radial (R), 2+ Radial (L), 2+ Dorsalis pedis (R), 2+ Dorsalis pedis (L) Abdomen: positive: Non-tender, No organomegaly, Nml bowel sounds, No distention. negative: Tenderness, Guarding, Rebound Back: positive: Nml inspection. negative: CVA tenderness (R), CVA tenderness (L) Skin: positive: Color nml, No rash, Warm, Dry. negative: Cyanosis, Diaphoresis, Pallor Extremities: positive: Non-tender, Full ROM, Nml appearance. negative: Calf tenderness, Joint swelling, Jamila's sign/cords Neurologic/Psychiatric: positive: Oriented x3, Motor nml, Sensation nml, Mood/affect nml. negative: Weakness, Sensory loss, Facial droop, Slurred/abnml speech, Depressed mood/affect - Lab Results Fish Bones: 03/07/18 05:45 03/07/18 05:45 Other Labs: Lab Results x24hrs 03/07/18 03/07/18 03/07/18 Range/Units 11:09 07:19 05:45 WBC (4.8-10.8) x10^3/uL RBC (4.70-6.10) 10^6/uL Hgb (14.0-18.0) g/dL Hct (42.0-52.0) % MCV (80.0-94.0) fL MCH (27.0-31.0) pg MCHC (32.0-36.0) g/dL RDW (12.0-15.0) % Plt Count (130-450) 10^3/uL MPV (7.4-11.4) fL Neut # (Auto) (1.5-6.6) 10^3/uL Lymph # (Auto) (1.5-3.5) 10^3/uL [place] # (Auto) (0.0-1.0) 10^3/uL Eos # (Auto) (0.0-0.7) 10^3/uL Baso # (Auto) (0.0-0.1) 10^3/uL Absolute Nucleated RBC x10^3/uL Nucleated RBC % /100WBC Sodium 133 L (135-145) mmol/L Potassium 3.4 L (3.5-5.0) mmol/L Chloride 101 (101-111) mmol/L Carbon Dioxide 21 (21-32) mmol/L Anion Gap 11.0 (6-13) BUN 5 L (6-20) mg/dL Creatinine 0.7 (0.6-1.2) mg/dL Estimated GFR (MDRD) 137 (>89) Glucose 152 H (70-100) mg/dL POC Whole Bld Glucose 155 H 146 H (70 - 100) mg/dL Calcium 8.3 L (8.5-10.3) mg/dL Phosphorus 2.0 L (2.5-4.6) mg/dL Magnesium 1.6 L (1.7-2.8) mg/dL Total Bilirubin 4.8 H (0.2-1.0) mg/dL AST 793 H (10-42) IU/L ALT 545 H (10-60) IU/L Alkaline Phosphatase 195 H (42-121) IU/L Total Protein 6.1 L (6.7-8.2) g/dL Albumin 3.1 L (3.2-5.5) g/dL Globulin 3.0 (2.1-4.2) g/dL Albumin/Globulin Ratio 1.0 (1.0-2.2) Amylase 38 (28-100) U/L Lipase 89 H (22-51) U/L 03/07/18 03/06/18 03/06/18 Range/Units 05:45 20:31 16:51 WBC 3.6 L (4.8-10.8) x10^3/uL RBC 3.91 L (4.70-6.10) 10^6/uL Hgb 13.6 L (14.0-18.0) g/dL Hct 38.8 L (42.0-52.0) % MCV 99.2 H (80.0-94.0) fL MCH 34.8 H (27.0-31.0) pg MCHC 35.1 (32.0-36.0) g/dL RDW 13.0 (12.0-15.0) % Plt Count 86 L (130-450) 10^3/uL MPV 9.4 (7.4-11.4) fL Neut # (Auto) 1.8 (1.5-6.6) 10^3/uL Lymph # (Auto) 1.3 L (1.5-3.5) 10^3/uL [place] # (Auto) 0.3 (0.0-1.0) 10^3/uL Eos # (Auto) 0.1 (0.0-0.7) 10^3/uL Baso # (Auto) 0.0 (0.0-0.1) 10^3/uL Absolute Nucleated RBC 0.01 x10^3/uL Nucleated RBC % 0.2 /100WBC Sodium (135-145) mmol/L Potassium (3.5-5.0) mmol/L Chloride (101-111) mmol/L Carbon Dioxide (21-32) mmol/L Anion Gap (6-13) BUN (6-20) mg/dL Creatinine (0.6-1.2) mg/dL Estimated GFR (MDRD) (>89) Glucose (70-100) mg/dL POC Whole Bld Glucose 171 H 153 H (70 - 100) mg/dL Calcium (8.5-10.3) mg/dL Phosphorus (2.5-4.6) mg/dL Magnesium (1.7-2.8) mg/dL Total Bilirubin (0.2-1.0) mg/dL AST (10-42) IU/L ALT (10-60) IU/L Alkaline Phosphatase (42-121) IU/L Total Protein (6.7-8.2) g/dL Albumin (3.2-5.5) g/dL Globulin (2.1-4.2) g/dL Albumin/Globulin Ratio (1.0-2.2) Amylase (28-100) U/L Lipase (22-51) U/L 03/06/18 Range/Units 11:01 WBC (4.8-10.8) x10^3/uL RBC (4.70-6.10) 10^6/uL Hgb (14.0-18.0) g/dL Hct (42.0-52.0) % MCV (80.0-94.0) fL MCH (27.0-31.0) pg MCHC (32.0-36.0) g/dL RDW (12.0-15.0) % Plt Count (130-450) 10^3/uL MPV (7.4-11.4) fL Neut # (Auto) (1.5-6.6) 10^3/uL Lymph # (Auto) (1.5-3.5) 10^3/uL [place] # (Auto) (0.0-1.0) 10^3/uL Eos # (Auto) (0.0-0.7) 10^3/uL Baso # (Auto) (0.0-0.1) 10^3/uL Absolute Nucleated RBC x10^3/uL Nucleated RBC % /100WBC Sodium (135-145) mmol/L Potassium (3.5-5.0) mmol/L Chloride (101-111) mmol/L Carbon Dioxide (21-32) mmol/L Anion Gap (6-13) BUN (6-20) mg/dL Creatinine (0.6-1.2) mg/dL Estimated GFR (MDRD) (>89) Glucose (70-100) mg/dL POC Whole Bld Glucose 160 H (70 - 100) mg/dL Calcium (8.5-10.3) mg/dL Phosphorus (2.5-4.6) mg/dL Magnesium (1.7-2.8) mg/dL Total Bilirubin (0.2-1.0) mg/dL AST (10-42) IU/L ALT (10-60) IU/L Alkaline Phosphatase (42-121) IU/L Total Protein (6.7-8.2) g/dL Albumin (3.2-5.5) g/dL Globulin (2.1-4.2) g/dL Albumin/Globulin Ratio (1.0-2.2) Amylase (28-100) U/L Lipase (22-51) U/L ABX Reporting Has patient been on IV antibiotics over the past 48 hours?: No Assessment/Plan - Problem List (1) Alcoholic pancreatitis Impression: 03/07 Lipase continue going down to 100, Amylase is normal. 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 pt feel better after early childhood education worker, no more nausea and pt tolerate the full liquid diet. full liquid diet, advanced as tolerated continue lab monitor 03/06 improved, lipase is down to 100. pt feel better, No abdominal pain, N/V/D continue IVF of NS continue clear liquid continue lab monitor (2) Alcoholic hepatitis Impression: 03/07, US and CT of abdomen indicate fatty liver, pt continue elevated liver enzyme, but total bili is going down. The etiology of pt continuing to have elevated liver enzyme, may be caused by fatty liver and alcohol check liver/spleen SPECT to monitor the liver damage hold hepatic toxical agents continue lab monitor strongly advise pt quit alcohol 03/06 liver enzyme increase but bili is down, unknown etiology. continue monitor lab, hold hepatic toxic agents continue support (3) Alcohol abuse Impression: 03/07 strongly advise pt quit alcohol, explain pt the reason. 03/06 advise pt quit alcohol continue CAWA protocol (4) Depression Impression: 03/07 stable, continue home meds (5) Non compliance w medication regimen Impression: 03/07 advise and educate pt for medication compliance (6) Obesity (BMI 30.0-34.9) Impression: 03/07 advise pt lost weight (7) Diabetes Impression: 03/07 stable, advise and educate pt for medical compliance stable, continue slide scale Qualifiers: Chronicity: acute Acute pancreatitis complication: unspecified Qualified Code(s): K85.20 - Alcohol induced acute pancreatitis without necrosis or infection
[2018-03-07] MEDS: traZODone 50 MG TABLET PO SCH (20:02)
[2018-03-07] MEDS: diphenhydrAMINE 25 MG CAPSULE PO SCH (20:02)
[2018-03-07] MEDS: INSULIN GLARGINE 300 UNIT/3 ML PEN SUBQ SCH (20:04)
[2018-03-08] MEDS: oxyCODONE 5 MG TABLET PO PRN (00:51)
[2018-03-08] MEDS: SODIUM CHLORIDE FLUSH 0.9% 10 ML SYRINGE IVP SCH ×2 (01:52→08:04)
[2018-03-08] MEDS: LORazepam 0.5 MG TABLET PO SCH ×4 (02:29→14:17)
[2018-03-08 06:16] LABS: BASOPHILS % (AUTO) 0.7 %; EOSINOPHILS # (AUTO) 0.1 10^3/uL (0.0-0.7); EOSINOPHILS % (AUTO) 3.6 %; HGB - HEMOGLOBIN 13.2 g/dL (14.0-18.0); LYMPHOCYTES # (AUTO) 1.6 10^3/uL (1.5-3.5); LYMPHOCYTES % (AUTO) 41.2 %; MEAN CORPUSCULAR HEMOGLOBIN 34.7 pg (27.0-31.0); MEAN CORPUSCULAR VOLUME 99.2 fL (80.0-94.0); MEAN PLATELET VOLUME 8.9 fL (7.4-11.4); MONOCYTES # (AUTO) 0.5 10^3/uL (0.0-1.0); MONOCYTES % (AUTO) 11.8 %; NEUTROPHILS # (AUTO) 1.7 10^3/uL (1.5-6.6); NEUTROPHILS % (AUTO) 42.7 %; PLT - PLATELET COUNT 102 10^3/uL (130-450); RED BLOOD COUNT 3.81 10^6/uL (4.70-6.10); RED CELL DISTRIBUTION WIDTH 12.8 % (12.0-15.0); WHITE BLOOD COUNT 3.9 x10^3/uL (4.8-10.8)
[2018-03-08] MEDS: SODIUM CHLORIDE 0.9% 1,000 ML IV SCH (06:48)
[2018-03-08 06:56] LABS: ALBUMIN 3.1 g/dL (3.2-5.5); ALBUMIN/GLOBULIN RATIO 1.1 (1.0-2.2); ALKALINE PHOSPHATASE 181 IU/L (42-121); ALT ALANINE AMINOTRANSFERASE 564 IU/L (10-60); AMYLASE 40 U/L (28-100); AST ASPARTATE AMINOTRANSFERASE 632 IU/L (10-42); BILIRUBIN,TOTAL 4.1 mg/dL (0.2-1.0); BUN - BLOOD UREA NITROGEN < 5 mg/dL (6-20); CALCIUM 8.4 mg/dL (8.5-10.3); CARBON DIOXIDE - CO2 24 mmol/L (21-32); CHLORIDE 97 mmol/L (101-111); CREATININE 0.6 mg/dL (0.6-1.2); GFR - MDRD 164 (>89); GLUCOSE 106 mg/dL (70-100); LIPASE 89 U/L (22-51); MAGNESIUM 1.4 mg/dL (1.7-2.8); SODIUM 134 mmol/L (135-145); TOTAL PROTEIN 5.9 g/dL (6.7-8.2)
[2018-03-08] MEDS ORDERED: POTASSIUM CHLORIDE 20 MEQ TABLET PO ONE (07:06)
[2018-03-08] MEDS ORDERED: MAGNESIUM SULFATE 2 GRAM 2 GM/50 ML BAG IV ONE (07:27)
[2018-03-08] MEDS: LISINOPRIL 5 MG TABLET PO SCH (08:01)
[2018-03-08] MEDS: FAMOTIDINE 20 MG TABLET PO SCH (08:01)
[2018-03-08] MEDS: MULTIVITAMIN TABLET PO SCH (08:01)
[2018-03-08] MEDS: NEUTRA-PHOS 250 MG TABLET PO SCH ×2 (08:01→11:47)
[2018-03-08] MEDS: FOLIC ACID 1 MG TABLET PO SCH (08:01)
[2018-03-08] MEDS: THIAMINE 100 MG TABLET PO SCH (08:01)
[2018-03-08] MEDS: INSULIN ASPART 300 UNIT/3 ML PEN SUBQ SCH ×2 (08:02→11:49)
[2018-03-08] MEDS: MAGNESIUM OXIDE 400 MG TABLET PO SCH (08:02)
[2018-03-08] MEDS: POLYETHYLENE GLYCOL 3350 17 GM PACKET PO SCH (08:04)
[2018-03-08 08:32] VITALS: BP 154/109
--- NOTE | 2018-03-08 13:50 | Nuclear Medicine Report ---
Reason: liver enzyme elevated Procedure Date: 03/08/2018 Accession Number: [id number] / [id number] Procedure: NM - Liver/Spleen SPECT CPT Code: FULL RESULT: EXAM: NUCLEAR MEDICINE LIVER SPLEEN SCAN EXAM DATE: 03/08/2018 01:22 PM. CLINICAL HISTORY: Liver enzyme elevated. COMPARISON: CT 03/04/2018. TECHNIQUE: The patient was injected with 4.5 mCi technetium 99m sulfur colloid. After an appropriate delay, static images of the abdomen are obtained. FINDINGS: There is radiotracer uptake in the spleen, liver, and bone marrow. IMPRESSION: Normal exam. [facility] The call report notification system was initiated by Dr. Lewis Yip at 13:45 hrs on 03/08/18. The above findings were discussed with Dorsey by Dr. Lewis Yip at 13:49 hrs on 03/08/18.
--- NOTE | 2018-03-08 14:02 | Discharge Plan ---
Discharge Plan Disposition: Home, Self Care Condition: Poor Prescriptions: metFORMIN [Glucophage] 850 mg PO BID #30 tablet Diet: Diabetic Activity Restrictions: Activity as Tolerated Shower Restrictions: No (fall precaution) Instruction Topics: ED Withdrawal Alcohol, Metformin tablets Additional Instructions or Follow Up instructions: You may follow up your PCP in one week, and have CMP test to monitor your liver enzyme and blood glucose level in one week. You are strongly advised to quit alcohol and control your blood glucose level. You want to continue Metformin but not insulin yet. Your Metformin dosage is increased to 850 mg Bid now. Should your symptoms return or worsen, you may present ER or call 911 for help No Smoking: If you smoke, Please STOP! Call for help. Follow-up with: Francisco Fong MD [Primary Care Provider] -
--- NOTE | 2018-03-08 14:15 | DISCHARGE SUMMARY ---
Discharge Summary Discharge Date: 03/08/18 Discharging Provider: Thao Primary Care Provider: Francisco Gonzalez Condition at Discharge: Poor Discharge Disposition: 01 Home, Self Care Discharge Facility Name: home - DIAGNOSES Admission Diagnoses: (1) Alcoholic pancreatitis (2) Alcoholic hepatitis (3) Diabetes (4) Hypertension (5) Hyponatremia (6) Alcohol abuse (7) Depression (8) Obesity (BMI 30.0-34.9) (9) Hypertriglyceridemia (10) Non compliance w medication regimen Discharge Diagnoses with Status of Each Condition: 1) Alcoholic pancreatitis pt tolerate carb-controlled diet. pt denies nausea, vomiting, diarrhea, denies abdominal pain. Lipase is 89 (2) Alcoholic hepatitis stable, pt has elevated liver enzyme. advise pt quit alcohol. US, CT and SPECT of liver indicate fatty liver, without other lesions. (3) Diabetes stable, pt refuse to have insulin to d/c to home. increase metformin to 850mg bid. (4) Hypertension pt decline to have BP meds to go to home. (5) Hyponatremia stable (6) Alcohol abuse advise pt quit alcohol. (7) Depression stable, (8) Obesity (BMI 30.0-34.9) advise (9) Hypertriglyceridemia mild elevated. pt decline medications to treat. pt has elevated liver enzyme, follow up PCP for further management (10) Non compliance w medication regimen discuss with pt, advise pt medical compliance - [facility] History of Present Illness: refer from Dr. Auguste's HPI on 03/04/18 as the following Patient is a 27-year-old gentleman with a past medical history significant for hypertriglyceridemia, morbid obesity, depression, alcohol abuse, fatty liver disease, insulin-dependent diabetes and recurrent pancreatitis who presented to the emergency department with a chief complaint of back pain. The patient has had 3 previous hospitalizations for alcoholic pancreatitis and alcoholic gastritis most recently he was admitted in May 2016. The patient states that since his last hospitalization he went quite a few months without drinking but then started drinking again. He states for the better part of the last year he has been drinking almost on a daily basis. He states he drinks about 4 large glasses of vodka a night. He states that over the last month he has been drinking more heavily because he has been feeling depressed. He states that he has been drinking every night until just 2 nights ago. He states that 2 days ago he began to develop back pain, nausea and vomiting. He states the pain was mostly located in the back but occasionally he would get some epigastric pain. He states he has had no appetite and has not eaten anything for the last 3 days. He states that his pain in his back and his epigastric area of his abdomen has been getting worse over the last 2 days to a point where today it was no longer tolerable and so he came into the emergency department. The patient states he has been having nausea and several episodes of vomiting over the last few days. He states he has not been able to eat anything at all for at least the last 2 days. The patient states he has stopped taking his insulin months ago because he just has not felt like taking it. He does take sertraline and metformin but those are the only 2 medications he takes with consistency. 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 The patient denies any fevers or chills. He denies any diarrhea. He denies any urinary urgency frequency or dysuria. He denies any focal neurologic deficits. Patient denies any headaches, blurred vision, runny nose, sore throat, nasal congestion, difficulty swallowing, chest pain, cough, shortness of air, orthopn ea, PND, increased lower extremity swelling, muscle aches, joint pain, joint swelling, neck stiffness, recent unintentional weight loss, hair loss, skin changes, rash, polyuria, polydipsia, dizziness, lightheadedness, night sweats or any focal neurologic deficits. On presentation to the emergency department the patient was afebrile however he was tachycardic with a heart rate of 111 and hypertensive with a blood pressure of 170/125. The patient was not in any respiratory distress but he was in acute distress as he seems to be in a significant amount of pain. In the emergency room the patient was given a dose of IV Dilaudid, 1 L of IV fluid and IV Zofran. The patient's lab tests revealed that the patient has some mild hyponatremia and hypochloremia with an elevated glucose of 229. The patient's LFTs were all elevated as he had a total bilirubin of 3.0, AST of 83 and ALT of 126. The patient's lipase was significantly elevated at 913. The patient had a normal CBC but did have a slightly elevated MCV. The patient's blood alcohol level was negative. The patient underwent a CT of his abdomen and pelvis which revealed findings compatible with acute pancreatitis. There was no pancreatic pseudocysts but there was diffuse fatty infiltration of the liver. The patient was admitted to the [facility] for acute alcoholic pancreatitis. - HOSPITAL COURSE Hospital Course: pt was admitted for acute on chronic alcoholic pancreatitis. pt was treated with bowel rest, high volume IVF of NS. after treatment, pt tolerated carb-control diet, no abdominal pain, no N/V/D, lipase is down to 89. pt request to be d/c to home. pt refused to change to use insulin for his DM2 control, instead he still wants Metformin. Increase his Metformin to 850 mg bid. - ALLERGIES Allergies/Adverse Reactions: Allergies Allergy/AdvReac Type Severity Reaction Status Date / Time Sulfa (Sulfonamide Allergy Intermediate Rash Verified 03/09/18 13:13 Antibiotics) - MEDICATIONS Home Medications: Ambulatory Orders Medication Instructions Recorded Confirmed Sertraline HCl 200 mg PO DAILY 03/04/18 03/09/18 diphenhydrAMINE HCl 50 mg PO QPM 03/04/18 03/09/18 [Diphenhydramine HCl] metFORMIN [Glucophage] 850 mg PO BID #30 tablet 03/08/18 03/09/18 Ondansetron HCl [Zofran] 4 mg PO Q6H PRN #20 tablet 03/12/18 oxyCODONE [Roxicodone] 5 mg PO Q4HR PRN #20 tablet 03/12/18 - PHYSICAL EXAM AT DISCHARGE General Appearance: positive: No acute distress, Alert. negative: Lethargic Eyes Bilateral: positive: Normal inspection, PERRL, No lid inflammation, Conjunctivae nml ENT: positive: ENT inspection nml, Pharynx nml, No signs of dehydration. negative: Purulent nasal drainage, Pharyngeal erythema, Oral lesions Neck: positive: Nml inspection, Thyroid nml, No JVD, Trachea midline. negative: Thyromegaly, Lymphadenopathy (R), Lymphadenopathy (L), Stiff neck, Swelling/bruising, Tracheal deviation Respiratory: positive: Chest non-tender, No respiratory distress, Breath sounds nml, Wheezes. negative: Rales, Rhonchi Cardiovascular: positive: Regular rate & rhythm, No murmur, No gallop. negative: Irregularly irregular, Extrasystoles, Tachycardia, Bradycardia Peripheral Pulses: positive: 2+ Abdomen: positive: Non-tender, No organomegaly, Nml bowel sounds, No distention. negative: Tenderness, Guarding, Rebound Back: positive: Nml inspection. negative: CVA tenderness (R), CVA tenderness (L) Skin: positive: Color nml, No rash, Warm, Dry. negative: Cyanosis, Diaphoresis, Pallor Extremities: positive: Non-tender, Full ROM, Nml appearance. negative: Calf tenderness, Joint swelling, Jamila's sign/cords Neurologic/Psychiatric: positive: Oriented x3, Motor nml, Sensation nml, Mood/affect nml. negative: Sensory loss, Facial droop, Slurred/abnml speech, Depressed mood/affect - LABS Result Diagrams: 03/08/18 06:00 03/08/18 06:00 - FOLLOW UP Follow Up: You may follow up your PCP in one week, and have CMP test to monitor your liver enzyme and blood glucose level in one week. You are strongly advised to quit alcohol and control your blood glucose level. You want to continue Metformin but not insulin yet. Your Metformin dosage is increased to 850 mg Bid now. Should your symptoms return or worsen, you may present ER or call 911 for help - TIME SPENT Time Spent in Discharge (Minutes): 50
[2018-03-16 13:22] LABS: HEPATITIS B CORE ANTIBODY IGM Non-reactive; HEPATITIS B SURFACE ANTIGEN Non-Reactive
[2018-03-16 13:23] LABS: HEPATITIS A IGM Non-Reactive; HEPATITIS C ANTIBODY Non-Reactive
== END 2018-03-08 14:50 | disposition home or self-care (01) | DRG 439 ==
LOC: ED 01:05 → MS2 03:20
PROVIDERS: ADMIT Internal Medicine; ATTEND Nurse Practitioner Gerontology
DX: K85.20 Alcohol induced acute pancreatitis without necrosis or infection (principal); E87.1 Hypo-osmolality and hyponatremia; E11.65 Type 2 diabetes mellitus with hyperglycemia; K86.0 Alcohol-induced chronic pancreatitis; K70.10 Alcoholic hepatitis without ascites; E66.01 Morbid (severe) obesity due to excess calories; Z68.34 Body mass index [BMI] 34.0-34.9, adult; K76.0 Fatty (change of) liver, not elsewhere classified; F32.9 Major depressive disorder, single episode, unspecified; I10 Essential (primary) hypertension; E78.1 Pure hyperglyceridemia; F41.9 Anxiety disorder, unspecified; E87.8 Other disorders of electrolyte and fluid balance, not elsewhere classified; T38.3X6A Underdosing of insulin and oral hypoglycemic [antidiabetic] drugs, initial encounter; F17.290 Nicotine dependence, other tobacco product, uncomplicated; Z79.891 Long term (current) use of opiate analgesic; Z79.84 Long term (current) use of oral hypoglycemic drugs; F10.10 Alcohol abuse, uncomplicated
CPT/HCPCS: 36415; 71045; 74176; 76705; 78215; 80053; 80061; 80074; 80320; 81001; 81003; 82150; 82607; 82746; 83036; 83605; 83690; 83721; 83735; 84100; 85025; 85610; 87086; 96361; 96374; 96375; 99283; 99285

== ENCOUNTER 2018-03-09 12:44 | Inpatient (IN) | payer BC, MEDICAID ==
[2018-03-09 13:40] LABS: BASOPHILS % (AUTO) 0.9 %; EOSINOPHILS # (AUTO) 0.2 10^3/uL (0.0-0.7); EOSINOPHILS % (AUTO) 3.6 %; HGB - HEMOGLOBIN 14.8 g/dL (14.0-18.0); LYMPHOCYTES # (AUTO) 1.8 10^3/uL (1.5-3.5); MEAN CORPUSCULAR HEMOGLOBIN 34.5 pg (27.0-31.0); MEAN CORPUSCULAR VOLUME 98.5 fL (80.0-94.0); MEAN PLATELET VOLUME 8.8 fL (7.4-11.4); MONOCYTES # (AUTO) 0.8 10^3/uL (0.0-1.0); MONOCYTES % (AUTO) 14.8 %; NEUTROPHILS # (AUTO) 2.4 10^3/uL (1.5-6.6); NEUTROPHILS % (AUTO) 45.7 %; PLT - PLATELET COUNT 157 10^3/uL (130-450); RED CELL DISTRIBUTION WIDTH 13.1 % (12.0-15.0); WHITE BLOOD COUNT 5.2 x10^3/uL (4.8-10.8)
[2018-03-09 14:00] LABS: ALBUMIN 3.7 g/dL (3.2-5.5); ALBUMIN/GLOBULIN RATIO 1.2 (1.0-2.2); BILIRUBIN,TOTAL 3.1 mg/dL (0.2-1.0); CALCIUM 9.3 mg/dL (8.5-10.3); CREATININE 0.7 mg/dL (0.6-1.2); TOTAL PROTEIN 6.8 g/dL (6.7-8.2)
[2018-03-09 15:15] LABS: GLUCOSE, URINE (UA) NEGATIVE (NEGATIVE); KETONES,URINE (UA) >=80 mg/dL (NEGATIVE); LEUKOCYTE ESTERASE, URINE NEGATIVE (NEGATIVE); NITRITE,URINE NEGATIVE (NEGATIVE); OCCULT BLOOD,URINE NEGATIVE (NEGATIVE); PH,URINE 6.5 PH (5.0-7.5); PROTEIN,URINE 30 mg/dL (NEGATIVE); UROBILINOGEN,URINE 1 (NORMAL) E.U./dL (NORMAL)
[2018-03-09] MEDS ORDERED: ONDANSETRON 4 MG/2 ML VIAL IVP STA (15:16)
[2018-03-09] MEDS ORDERED: SODIUM CHLORIDE 0.9% 1,000 ML IV ONE ×2 (15:16)
--- NOTE | 2018-03-09 15:22 | ED Physician Documentation ---
PD HPI ABD PAIN - Stated complaint Stated Complaint: ABD/BACK PX - Chief complaint Chief Complaint: Abd Pain - History obtained from History obtained from: Patient - History of Present Illness Timing - onset: Today Timing - duration: Days (1) Timing - details: Gradual onset Pain level max: 8 Pain level now: 8 Quality: Aching, Pain Location: Epigastric Radiation: Other (mid back) Improved by: Vomiting Worsened by: Eating Associated symptoms: Nausea, Vomiting. No: Fever, Hematemesis, Diarrhea, Constipation, Melena, Hematochezia, Dysuria, Hematuria, Chest pain Similar symptoms before: Diagnosis (pancreatitis) Recently seen: Other (recently admitted for 4 days, pain and vomiting resumed last night.) Review of Systems Ten Systems: 10 systems reviewed and negative Constitutional: denies: Fever, Chills Nose: denies: Rhinorrhea / runny nose, Congestion Respiratory: denies: Cough GI: denies: Abdominal Pain, Nausea, Vomiting, Diarrhea Skin: denies: Rash Musculoskeletal: denies: Neck pain, Back pain Neurologic: denies: Headache PD PAST MEDICAL HISTORY - Past Medical History Cardiovascular: Hypertension, High cholesterol Respiratory: None Neuro: Headaches Endocrine/Autoimmune: Type 2 diabetes GI: Pancreatitis, Hepatitis, Other (Fatty liver disease) : None HEENT: None Psych: Depression, Anxiety Musculoskeletal: None Derm: None - Past Surgical History Past Surgical History: No - Present Medications Home Medications: Ambulatory Orders Medication Instructions Recorded Confirmed Sertraline HCl 200 mg PO DAILY 03/04/18 03/04/18 diphenhydrAMINE HCl 50 mg PO QPM 03/04/18 03/04/18 [Diphenhydramine HCl] metFORMIN [Glucophage] 850 mg PO BID #30 tablet 03/08/18 - Allergies Allergies/Adverse Reactions: Allergies Allergy/AdvReac Type Severity Reaction Status Date / Time Sulfa (Sulfonamide Allergy Intermediate Rash Verified 03/09/18 13:13 Antibiotics) - Social History Does the pt smoke?: No Smoking Status: Never smoker Does the pt drink ETOH?: Yes Does the pt have substance abuse?: No - Immunizations Immunizations are current?: Yes - POLST Patient has POLST: No POLST Status: Full Code PD ED PE NORMAL - Vitals Vital signs reviewed: Yes - General General: Alert and oriented X 3, No acute distress, Well developed/nourished - HEENT HEENT: PERRL, Moist mucous membranes - Neck Neck: Supple, no meningeal sign - Cardiac Cardiac: RRR, Strong equal pulses - Respiratory Respiratory: No respiratory distress, Clear bilaterally - Abdomen Abdomen: Soft, Non distended, Other (Tender to palpation epigastric without peritoneal signs) - Back Back: No CVA TTP, No spinal TTP - Derm Derm: Warm and dry - Extremities Extremities: No edema, No calf tenderness / cord - Neuro Neuro: Alert and oriented X 3 - Psych Psych: Normal mood, Normal affect Results - Vitals Vitals: Vital Signs - 24 hr 03/09/18 03/09/18 13:07 16:30 Temperature 36.2 C L Heart Rate 67 56 L Respiratory 20 12 Rate Blood Pressure 152/108 H 154/107 H O2 Saturation 95 92 Oxygen O2 Source Room air - Labs Labs: Laboratory Tests 03/09/18 03/09/18 03/09/18 13:34 13:34 13:34 WBC 5.2 RBC 4.30 L Hgb 14.8 Hct 42.4 MCV 98.5 H MCH 34.5 H MCHC 35.0 RDW 13.1 Plt Count 157 MPV 8.8 Neut # (Auto) 2.4 Lymph # (Auto) 1.8 Runnels # (Auto) 0.8 Eos # (Auto) 0.2 Baso # (Auto) 0.0 Absolute Nucleated RBC 0.00 Nucleated RBC % 0.1 Sodium 134 L Potassium 3.4 L Chloride 96 L Carbon Dioxide 24 Anion Gap 14.0 H BUN 5 L Creatinine 0.7 Estimated GFR (MDRD) 137 Glucose 188 H Calcium 9.3 Total Bilirubin 3.1 H AST 189 H ALT 464 H Alkaline Phosphatase 199 H Total Protein 6.8 Albumin 3.7 Globulin 3.1 Albumin/Globulin Ratio 1.2 Lipase 111 H Urine Color Urine Clarity Urine pH Ur Specific [place] Urine Protein Urine Glucose (UA) Urine Ketones Urine Occult Blood Urine Nitrite Urine Bilirubin Urine Urobilinogen Ur Leukocyte Esterase Urine RBC Urine WBC Ur Squamous Epith Cells Urine Bacteria Urine Mucus Ur Microscopic Review Urine Culture Comments Ethyl Alcohol < 5.0 03/09/18 15:09 WBC RBC Hgb Hct MCV MCH MCHC RDW Plt Count MPV Neut # (Auto) Lymph # (Auto) Runnels # (Auto) Eos # (Auto) Baso # (Auto) Absolute Nucleated RBC Nucleated RBC % Sodium Potassium Chloride Carbon Dioxide Anion Gap BUN Creatinine Estimated GFR (MDRD) Glucose Calcium Total Bilirubin AST ALT Alkaline Phosphatase Total Protein Albumin Globulin Albumin/Globulin Ratio Lipase Urine Color DARK YELLOW Urine Clarity CLEAR Urine pH 6.5 Ur Specific [place] 1.025 Urine Protein 30 H Urine Glucose (UA) NEGATIVE Urine Ketones >=80 H Urine Occult Blood NEGATIVE Urine Nitrite NEGATIVE Urine Bilirubin LARGE H Urine Urobilinogen 1 (NORMAL) Ur Leukocyte Esterase NEGATIVE Urine RBC None Seen Urine WBC 0-3 Ur Squamous Epith Cells RARE Squamous Urine Bacteria None Seen Urine Mucus Moderate Strands Ur Microscopic Review INDICATED Urine Culture Comments NOT INDICATED Ethyl Alcohol PD MEDICAL DECISION MAKING - ED course Complexity details: reviewed old records, reviewed results, re-evaluated patient, considered differential, d/w patient, d/w family, d/w consultant nurse ED course: Patient is a 27-year-old male who presents to the emergency department with recurrent pancreatitis. Has had pain and vomiting since last night. He is st ill having pain vomiting here. Will place him back in the hospital for bowel rest and pain control. Discussed the case with the hospitalist, Dr. Handy who accepts. This document was made in part using voice recognition software. While efforts are made to proofread this document, sound alike and grammatical errors may occur. Departure - Departure Disposition: [facility] DC/Xfer Clinical Impression: Vomiting Qualifiers: Vomiting type: unspecified Vomiting Intractability: non-intractable Nausea presence: with nausea Qualified Code(s): R11.2 - Nausea with vomiting, unspecified Alcoholic pancreatitis Qualifiers: Chronicity: acute Acute pancreatitis complication: unspecified Qualified Code(s): K85.20 - Alcohol induced acute pancreatitis without necrosis or infection Condition: Stable
[2018-03-09 15:23] LABS: BILIRUBIN,URINE LARGE (NEGATIVE); CLARITY,URINE CLEAR (CLEAR); ICTOTEST,URINE POSITIVE
[2018-03-09 15:35] LABS: BACTERIA,URINE None Seen /HPF (None Seen); RBC,URINE None Seen /HPF (0-5); SQUAMOUS EPITHELIAL CELL,UR RARE Squamous (<= Few)
[2018-03-09 15:36] LABS: MUCUS,URINE Moderate Strands
[2018-03-09] MEDS: HYDROmorphone 1 MG/ML CARPUJECT IVP STA (15:46)
[2018-03-09] MEDS: SODIUM CHLORIDE 0.9% 1,000 ML IV SCH ×2 (18:04→23:13)
[2018-03-09] MEDS: HYDROmorphone 1 MG/ML CARPUJECT IVP PRN ×3 (18:11→22:36)
[2018-03-09] MEDS: INSULIN ASPART 300 UNIT/3 ML PEN SUBQ SCH ×2 (18:13→20:38)
[2018-03-09] MEDS: PANTOPRAZOLE 40 MG VIAL IVP SCH (18:14)
[2018-03-09] MEDS: SODIUM CHLORIDE FLUSH 0.9% 10 ML SYRINGE IVP SCH (18:15)
[2018-03-09] MEDS: SODIUM CHLORIDE FLUSH 0.9% 10 ML SYRINGE IVP PRN (18:15)
[2018-03-09 18:21] LABS: HB2 TOTAL 16.3 g/dL; HEMOGLOBIN A1C 1.02 g/dL; HEMOGLOBIN A1C % 7.9 % (4.6-6.2)
[2018-03-09] MEDS: oxyCODONE 5 MG TABLET PO PRN ×2 (18:51→23:29)
--- NOTE | 2018-03-09 18:59 | HISTORY & PHYSICAL EXAMINATION ---
Chief Complaint - Chief Complaint Chief Complaint: N/V/abdominal pain History of Present Illness - History of Present Illness HPI Comment/Other: is a 27-year-old gentleman with a past medical history significant for hypertriglyceridemia, morbid obesity, depression, alcohol abuse, fatty liver disease, insulin-dependent diabetes and recurrent pancreatitis who presented to the emergency department with a chief complaint of nausea, vomiting and abdominal pain. Pt was just discharged yesterday. At the discharge, pt tolerated his carb-controlled diet, no nausea, vomiting or diarrhea or abdominal pain. His Lipase is close to normal. Pt report after he was discharged for hospital, he ate lots of fatty and cheese food, but he denies drinking any alcohol, the he felt abdominal pain again, and nausea and vomiting and loose stool. He state the symptoms were similar as he had before with acute pancreatitis. Lipase is slight elevated today 111, his liver enzyme is still elevated. pt denies chest pain, shortness of breath, fever, chill, headache, vision change. History - Past Medical History Cardiovascular: reports: Hypertension, High cholesterol Respiratory: reports: Other Neuro: reports: Headaches Endocrine/Autoimmune: reports: Type 2 diabetes GI: reports: Pancreatitis, Hepatitis, Other : reports: None HEENT: reports: None Psych: reports: Depression, Anxiety, Panic attacks, Obsessive compulsive disorder Musculoskeletal: reports: None Derm: reports: None MRSA Hx?: No Other Past Medical History: bronchitis, ETOH pancreatitis and hepatitis - Family & Social History Family History: Mother: Alive and Well, Hypertension, Mental Illness, Father: Alive and Well Family History Comment/Other: Grandmother also had hypertension and father has atrial fibrillation. Social History Notes: The patient lives in [place], [place] with his parents. He is single and does not have any children. 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 He drinks 4 glasses of vodka nightly and smokes a vapor pen. He denies any other illicit drug use. - POLST Patient has POLST: No POLST Status: Full Code Meds/Allgy - Home Medications Home Medications: Ambulatory Orders Medication Instructions Recorded Confirmed Sertraline HCl 200 mg PO DAILY 03/04/18 03/09/18 diphenhydrAMINE HCl 50 mg PO QPM 03/04/18 03/09/18 [Diphenhydramine HCl] metFORMIN [Glucophage] 850 mg PO BID #30 tablet 03/08/18 03/09/18 - Allergies Allergies/Adverse Reactions: Allergies Allergy/AdvReac Type Severity Reaction Status Date / Time Sulfa (Sulfonamide Allergy Intermediate Rash Verified 03/09/18 13:13 Antibiotics) Review of Systems - Constitutional Constitutional: denies: Fatigue, Fever, Chills, Malaise, Weakness, Poor appetite, Diaphoresis, Night sweats - Eyes Eyes: denies: Pain, Irritation, Amaurosis, Blurred vision, Spots in vision, Field loss, Vision loss, Dipolpia - Ears, Nose & Throat Ears, Nose & Throat: denies: Ear pain, Hearing loss, Hearing aids, Tinnitus, Vertigo, Nasal pain, Nasal discharge, Nosebleeds, Nasal obstruction, Nasal congestion, Postnasal drainage, Dentures, Sore throat, Hoarseness, Mouth lesions, Bleeding gums - Cardiovascular Cariovascular: denies: Irregular heart rate, Palpitations, Chest pain, Edema, Lightheadedness, Syncope, Exertional dyspnea, Decr. exercise tolerance - Respiratory Respiratory: denies: Cough, Sputum production, Wheezing, Snoring, Hemoptysis, O rthopnea, SOB at rest, SOB with exertion, Apnea - Gastrointestinal Gastrointestinal: reports: Abdominal pain, Diarrhea, Nausea, Vomiting. denies: Abdominal distention, Constipation, Change in bowel habits, Rectal bleeding, Black stools, Bloody stools, Bile emesis, Brennon blood emesis, Coffee grounds emesis, Reflux/heartburn, Bloating, Poor appetite - Genitourinary Genitourinary: denies: Dysuria, Frequency, Urgency, Hematuria, Incontinence, Flank pain, Nocturia, Urethral discharge - Musculoskeletal Musculoskeletal: denies: Muscle pain, Back pain, Muscle aches, Stiffness, Limite d range of motion, Muscle weakness, Gout, Joint pain - Integumentary Integumentary: denies: Rash, Pruritis, Lesions, Dryness, Lumps, Acne, Pigment changes, Nail changes - Neurological Neurological: denies: General weakness, Focal weakness, Headache, Dizziness, Numbness, Memory problems, Pre-existing deficit, Abnormal gait, Seizures, Incoordination, Slurred speech - Psychiatric Psychiatric: denies: Depression, Anxiety, Suicidal, Delusions, Hallucinations, Homicidal - Endocrine Endocrine: denies: Polyuria, Polydypsia, Polyphagia, Intolerance to cold, Intolerance to heat - Hematologic/Lymphatic Hematologic/Lymphatic: denies: Anemia, Bruising, Petechiae, Blood clots, Lymphadenopathy, Bleeding tendencies Exam - Vital Signs Reviewed Vital Signs: Yes Vital Signs: Vital Signs x48h Temp Pulse Pulse Resp BP BP Pulse Ox 03/09/18 17:53 36.9 C 62 20 162/111 H 96 03/09/18 16:30 56 L 12 154/107 H 92 03/09/18 13:07 36.2 C L 67 20 152/108 H 95 - Physical Exam General Appearance: positive: No acute distress, Alert. negative: Lethargic Eyes Bilateral: positive: Normal inspection, PERRL, No lid inflammation, Conjunctivae nml ENT: positive: ENT inspection nml, Pharynx nml, No signs of dehydration. negative: Purulent nasal drainage, Pharyngeal erythema, Oral lesions Neck: positive: Nml inspection, Thyroid nml, No JVD, Trachea midline. negative: Thyromegaly, Lymphadenopathy (R), Lymphadenopathy (L), Stiff neck, Swelling/bruising, Tracheal deviation Respiratory: positive: Chest non-tender, No respiratory distress, Breath sounds nml. negative: Wheezes, Rales, Rhonchi Cardiovascular: positive: Regular rate & rhythm, No murmur, No gallop, Irregularly irregular. negative: Extrasystoles, Tachycardia, Bradycardia, JVD present, Systolic murmur, Diastolic murmur Peripheral Pulses: positive: 2+ Abdomen: positive: Non-tender, No organomegaly, No distention. negative: Tenderness, Guarding, Rebound Back: positive: Nml inspection. negative: CVA tenderness (R), CVA tenderness (L) Skin: positive: Color nml, No rash, Warm, Dry. negative: Cyanosis, Diaphoresis, Pallor, Skin rash Extremities: positive: Non-tender, Full ROM, Nml appearance. negative: Calf tenderness, Joint swelling, Jamila's sign/cords Neurologic/Psychiatric: positive: Oriented x3, Motor nml, Sensation nml, Mood/affect nml. negative: Weakness, Sensory loss, Facial droop, Slurred/abnml speech, Depressed mood/affect Conclusion/Plan - Problem List (1) Nausea & vomiting Conclusion/Plan: slight elevated Lipase, pt report he ate very fatty food, but he denies alcohol intake at this time antiemesis PRN IVF of NS, Lab monitor clear liquid diet, bowel rest pain control (2) Alcoholic pancreatitis Conclusion/Plan: chronic alcoholic pancreatitis, pt had multiple hospital admission for the same problem pain control bowel rest, clear diet IVF of NS lab monitor Qualifiers: Chronicity: acute Acute pancreatitis complication: unspecified Qualified Code(s): K85.20 - Alcohol induced acute pancreatitis without necrosis or infection (3) Alcoholic hepatitis Conclusion/Plan: elevated liver enzyme, chronic, alcoholic hepatitis. In the last admission, pt had SPECT scan, liver is unremarkable except fatty liver advise pt quit alcohol continue lab monitor hold hepatic toxic agents Qualifiers: Ascites presence: without ascites Qualified Code(s): K70.10 - Alcoholic h epatitis without ascites (4) Hypertension Conclusion/Plan: pt had elevated BP in the admission start on Norvasc vital monitor Qualifiers: Hypertension type: unspecified Qualified Code(s): I10 - Essential (primary) hypertension (5) Diabetes Conclusion/Plan: hold Metformin start slide scale, ACHS start hypoglycemia protocol Qualifiers: (6) Non compliance w medication regimen Conclusion/Plan: pt report he did not take any medication when he was d/c to home, but he ate lots of fatty and cheese foot advise pt medical compliance, quit alcohol (7) Full code status Conclusion/Plan: pt request full code - Lab Results Fish Bones: 03/10/18 06:09 03/10/18 06:09 Core Measures - Anticipated LOS I expect patient to be DC'd or transferred within 96 hours.: Yes - DVT/VTE - Prophylaxis VTE/DVT Device ordered at admit?: Yes
[2018-03-09] MEDS ORDERED: cloNIDine 0.1 MG TABLET PO PRN (19:12)
[2018-03-09] MEDS ORDERED: POTASSIUM CHLORIDE 20 MEQ TABLET PO ONE (19:39)
[2018-03-09] MEDS: TEMAZEPAM 15 MG CAPSULE PO PRN (20:43)
[2018-03-10] MEDS: SODIUM CHLORIDE FLUSH 0.9% 10 ML SYRINGE IVP SCH ×4 (00:37→16:41)
[2018-03-10] MEDS: HYDROmorphone 1 MG/ML CARPUJECT IVP PRN ×3 (00:55→09:13)
[2018-03-10] MEDS: ONDANSETRON 4 MG/2 ML VIAL IVP PRN ×3 (02:01→21:11)
[2018-03-10] MEDS: oxyCODONE 5 MG TABLET PO PRN ×4 (04:16→20:40)
[2018-03-10] MEDS: SODIUM CHLORIDE FLUSH 0.9% 10 ML SYRINGE IVP PRN (05:29)
[2018-03-10] MEDS: SODIUM CHLORIDE 0.9% 1,000 ML IV SCH ×3 (05:29→14:02)
[2018-03-10] MEDS: PANTOPRAZOLE 40 MG VIAL IVP SCH (05:29)
[2018-03-10 06:36] LABS: BASOPHILS % (AUTO) 0.8 %; EOSINOPHILS # (AUTO) 0.1 10^3/uL (0.0-0.7); EOSINOPHILS % (AUTO) 3.7 %; HGB - HEMOGLOBIN 13.7 g/dL (14.0-18.0); LYMPHOCYTES # (AUTO) 1.8 10^3/uL (1.5-3.5); LYMPHOCYTES % (AUTO) 45.6 %; MEAN CORPUSCULAR HEMOGLOBIN 34.6 pg (27.0-31.0); MEAN CORPUSCULAR HGB CONC 34.7 g/dL (32.0-36.0); MEAN PLATELET VOLUME 9.2 fL (7.4-11.4); MONOCYTES # (AUTO) 0.6 10^3/uL (0.0-1.0); MONOCYTES % (AUTO) 13.8 %; NEUTROPHILS # (AUTO) 1.5 10^3/uL (1.5-6.6); NEUTROPHILS % (AUTO) 36.1 %; PLT - PLATELET COUNT 117 10^3/uL (130-450); RED BLOOD COUNT 3.96 10^6/uL (4.70-6.10); RED CELL DISTRIBUTION WIDTH 12.9 % (12.0-15.0)
[2018-03-10 07:08] LABS: ALBUMIN 3.1 g/dL (3.2-5.5); ALBUMIN/GLOBULIN RATIO 1.1 (1.0-2.2); ALKALINE PHOSPHATASE 147 IU/L (42-121); ALT ALANINE AMINOTRANSFERASE 330 IU/L (10-60); AST ASPARTATE AMINOTRANSFERASE 142 IU/L (10-42); BILIRUBIN,TOTAL 2.4 mg/dL (0.2-1.0); BUN - BLOOD UREA NITROGEN < 5 mg/dL (6-20); CALCIUM 8.2 mg/dL (8.5-10.3); CARBON DIOXIDE - CO2 24 mmol/L (21-32); CHLORIDE 102 mmol/L (101-111); CREATININE 0.6 mg/dL (0.6-1.2); GFR - MDRD 164 (>89); GLUCOSE 143 mg/dL (70-100); LIPASE 86 U/L (22-51); MAGNESIUM 1.5 mg/dL (1.7-2.8); SODIUM 137 mmol/L (135-145); TOTAL PROTEIN 5.9 g/dL (6.7-8.2)
[2018-03-10] MEDS: SERTRALINE 50 MG TABLET PO SCH (08:15)
[2018-03-10] MEDS: amLODIPine 5 MG TABLET PO SCH (08:16)
[2018-03-10] MEDS: INSULIN ASPART 300 UNIT/3 ML PEN SUBQ SCH ×4 (08:18→20:42)
[2018-03-10] MEDS: POLYETHYLENE GLYCOL 3350 17 GM PACKET PO SCH (08:59)
[2018-03-10] MEDS ORDERED: MAGNESIUM SULFATE 1 GM in SODIUM CHLORIDE 0.9% 50 ML IV ONE (10:00)
[2018-03-10] MEDS: HYDROmorphone 1 MG/ML CARPUJECT IVP STA (11:20)
[2018-03-10] MEDS: HYDROmorphone 2 MG TABLET PO PRN ×2 (14:02→19:07)
--- NOTE | 2018-03-10 17:47 | PROVIDER PROGRESS NOTE ---
Subjective - Prog Note Date Prog Note Date: 03/10/18 - Subjective Pt reports feeling: Improved Subjective: pt report he has abdominal controlled , no N/V. No other complaint. pt tolerate full liquid diet. Current Medications - Current Medications Current Medications: Active Medications Amlodipine Besylate (Norvasc) 5 mg PO DAILY [facility] Last Admin: 03/10/18 08:16 Dose: 5 mg Clonidine HCl (Catapres) 0.1 mg PO BID PRN PRN Reason: Hypertensive Emergency Hydromorphone HCl (Dilaudid) 2 mg PO Q6HR PRN PRN Reason: Severe Pain Last Admin: 03/10/18 14:02 Dose: 2 mg Sodium Chloride (Normal Saline 0.9%) 1,000 mls @ 125 mls/hr IV .Q8H [facility] Last Admin: 03/10/18 14:02 Dose: 125 mls/hr Insulin Aspart (Novolog) 1 - 5 unit SUBQ 0800,1200,1700,2100 [facility]; Protocol Last Admin: 03/10/18 16:42 Dose: 1 unit Ondansetron HCl (Zofran Inj) 4 mg IVP Q6HR PRN PRN Reason: Nausea / Vomiting Last Admin: 03/10/18 14:34 Dose: 4 mg Oxycodone HCl (Roxicodone) 5 mg PO Q4HR PRN PRN Reason: Pain 5 to 7 Last Admin: 03/10/18 16:41 Dose: 5 mg Pantoprazole Sodium (Protonix) 40 mg IVP QDAC [facility] Last Admin: 03/10/18 05:29 Dose: 40 mg Polyethylene Glycol (Miralax) 17 gm PO DAILY [facility] Last Admin: 03/10/18 08:59 Dose: Not Given Sertraline HCl (Zoloft) 200 mg PO DAILY [facility] Last Admin: 03/10/18 08:15 Dose: 200 mg Sodium Chloride (Normal Saline Flush 0.9%) 10 ml IVP PRN PRN PRN Reason: NEEDED PER PROVIDER ORDERS Last Admin: 03/10/18 05:29 Dose: 10 ml Sodium Chloride (Normal Saline Flush 0.9%) 10 ml IVP 0100,0900,1700 [facility] Last Admin: 03/10/18 16:41 Dose: Not Given Temazepam (Restoril) 15 mg PO QPM PRN PRN Reason: Insomnia Last Admin: 03/09/18 20:43 Dose: 15 mg Sertraline HCl 200 mg PO DAILY 03/04/18 diphenhydrAMINE HCl [Diphenhydramine HCl] 50 mg PO QPM 03/04/18 Objective - Vital Signs/Intake & Output Reviewed Vital Signs: Yes Vital Signs: Vital Signs x48h Temp Pulse Resp BP Pulse Ox 03/10/18 15:39 37.0 C 57 L 24 152/95 H 95 Intake & Output: Intake & Output 03/07/18 03/08/18 03/09/18 03/10/18 23:59 23:59 23:59 23:59 Intake Total 500 2550 4328 Balance 500 2550 4328 - Objective General Appearance: positive: No acute distress, Alert. negative: Lethargic Eyes Bilateral: positive: Normal inspection, PERRL, No lid inflammation, Conjunctivae nml ENT: positive: ENT inspection nml, Pharynx nml, No signs of dehydration. negative: Purulent nasal drainage, Pharyngeal erythema, Oral lesions Neck: positive: Nml inspection, Thyroid nml, No JVD, Trachea midline. negative: Thyromegaly, Lymphadenopathy (R), Lymphadenopathy (L), Stiff neck, Carotid bruit, Swelling/bruising, Tracheal deviation Respiratory: positive: Chest non-tender, No respiratory distress, Breath sounds nml. negative: Wheezes, Rales, Rhonchi Cardiovascular: positive: Regular rate & rhythm, No murmur, No gallop. negative: Irregularly irregular, Extrasystoles, Tachycardia, Bradycardia, JVD present, Systolic murmur, Diastolic murmur Peripheral Pulses: 2+ Radial (R), 2+ Radial (L), 2+ Dorsalis pedis (R), 2+ Dorsalis pedis (L) Abdomen: positive: Non-tender, No organomegaly, Nml bowel sounds, No distention. negative: Tenderness, Guarding, Rebound Back: positive: Nml inspection. negative: CVA tenderness (R), CVA tenderness (L) Skin: positive: Color nml, No rash, Warm, Dry. negative: Cyanosis, Diaphoresis, Pallor Extremities: positive: Non-tender, Full ROM, Nml appearance. negative: Calf tenderness, Joint swelling, Jamila's sign/cords Neurologic/Psychiatric: positive: Oriented x3, Motor nml, Sensation nml, Mood/affect nml. negative: Weakness, Sensory loss, Facial droop, Slurred/abnml speech, Depressed mood/affect - Lab Results Fish Bones: 03/11/18 06:20 03/11/18 06:20 Other Labs: Lab Results x24hrs 03/10/18 03/10/18 03/10/18 Range/Units 16:37 11:28 07:45 WBC (4.8-10.8) x10^3/uL RBC (4.70-6.10) 10^6/uL Hgb (14.0-18.0) g/dL Hct (42.0-52.0) % MCV (80.0-94.0) fL MCH (27.0-31.0) pg MCHC (32.0-36.0) g/dL RDW (12.0-15.0) % Plt Count (130-450) 10^3/uL MPV (7.4-11.4) fL Neut # (Auto) (1.5-6.6) 10^3/uL Lymph # (Auto) (1.5-3.5) 10^3/uL [place] # (Auto) (0.0-1.0) 10^3/uL Eos # (Auto) (0.0-0.7) 10^3/uL Baso # (Auto) (0.0-0.1) 10^3/uL Absolute Nucleated RBC x10^3/uL Nucleated RBC % /100WBC Sodium (135-145) mmol/L Potassium (3.5-5.0) mmol/L Chloride (101-111) mmol/L Carbon Dioxide (21-32) mmol/L Anion Gap (6-13) BUN (6-20) mg/dL Creatinine (0.6-1.2) mg/dL Estimated GFR (MDRD) (>89) Glucose (70-100) mg/dL POC Whole Bld Glucose 175 H 150 H 142 H (70 - 100) mg/dL Glycated Hemoglobin (4.6-6.2) % Estim Average Glucose (70-100) Calcium (8.5-10.3) mg/dL Magnesium (1.7-2.8) mg/dL Total Bilirubin (0.2-1.0) mg/dL AST (10-42) IU/L ALT (10-60) IU/L Alkaline Phosphatase (42-121) IU/L Total Protein (6.7-8.2) g/dL Albumin (3.2-5.5) g/dL Globulin (2.1-4.2) g/dL Albumin/Globulin Ratio (1.0-2.2) Lipase (22-51) U/L 03/10/18 03/10/18 03/09/18 Range/Units 06:09 06:09 20:31 WBC 4.0 L (4.8-10.8) x10^3/uL RBC 3.96 L (4.70-6.10) 10^6/uL Hgb 13.7 L (14.0-18.0) g/dL Hct 39.6 L (42.0-52.0) % MCV 100.0 H (80.0-94.0) fL MCH 34.6 H (27.0-31.0) pg MCHC 34.7 (32.0-36.0) g/dL RDW 12.9 (12.0-15.0) % Plt Count 117 L (130-450) 10^3/uL MPV 9.2 (7.4-11.4) fL Neut # (Auto) 1.5 (1.5-6.6) 10^3/uL Lymph # (Auto) 1.8 (1.5-3.5) 10^3/uL [place] # (Auto) 0.6 (0.0-1.0) 10^3/uL Eos # (Auto) 0.1 (0.0-0.7) 10^3/uL Baso # (Auto) 0.0 (0.0-0.1) 10^3/uL Absolute Nucleated RBC 0.00 x10^3/uL Nucleated RBC % 0.1 /100WBC Sodium 137 (135-145) mmol/L Potassium 3.5 (3.5-5.0) mmol/L Chloride 102 (101-111) mmol/L Carbon Dioxide 24 (21-32) mmol/L Anion Gap 11.0 (6-13) BUN < 5 L (6-20) mg/dL Creatinine 0.6 (0.6-1.2) mg/dL Estimated GFR (MDRD) 164 (>89) Glucose 143 H (70-100) mg/dL POC Whole Bld Glucose 178 H (70 - 100) mg/dL Glycated Hemoglobin (4.6-6.2) % Estim Average Glucose (70-100) Calcium 8.2 L (8.5-10.3) mg/dL Magnesium 1.5 L (1.7-2.8) mg/dL Total Bilirubin 2.4 H (0.2-1.0) mg/dL AST 142 H (10-42) IU/L ALT 330 H (10-60) IU/L Alkaline Phosphatase 147 H (42-121) IU/L Total Protein 5.9 L (6.7-8.2) g/dL Albumin 3.1 L (3.2-5.5) g/dL Globulin 2.8 (2.1-4.2) g/dL Albumin/Globulin Ratio 1.1 (1.0-2.2) Lipase 86 H (22-51) U/L 03/09/18 03/09/18 Range/Units 17:58 13:16 WBC (4.8-10.8) x10^3/uL RBC (4.70-6.10) 10^6/uL Hgb (14.0-18.0) g/dL Hct (42.0-52.0) % MCV (80.0-94.0) fL MCH (27.0-31.0) pg MCHC (32.0-36.0) g/dL RDW (12.0-15.0) % Plt Count (130-450) 10^3/uL MPV (7.4-11.4) fL Neut # (Auto) (1.5-6.6) 10^3/uL Lymph # (Auto) (1.5-3.5) 10^3/uL [place] # (Auto) (0.0-1.0) 10^3/uL Eos # (Auto) (0.0-0.7) 10^3/uL Baso # (Auto) (0.0-0.1) 10^3/uL Absolute Nucleated RBC x10^3/uL Nucleated RBC % /100WBC Sodium (135-145) mmol/L Potassium (3.5-5.0) mmol/L Chloride (101-111) mmol/L Carbon Dioxide (21-32) mmol/L Anion Gap (6-13) BUN (6-20) mg/dL Creatinine (0.6-1.2) mg/dL Estimated GFR (MDRD) (>89) Glucose (70-100) mg/dL POC Whole Bld Glucose 169 H (70 - 100) mg/dL Glycated Hemoglobin 7.9 H (4.6-6.2) % Estim Average Glucose 180 H (70-100) Calcium (8.5-10.3) mg/dL Magnesium (1.7-2.8) mg/dL Total Bilirubin (0.2-1.0) mg/dL AST (10-42) IU/L ALT (10-60) IU/L Alkaline Phosphatase (42-121) IU/L Total Protein (6.7-8.2) g/dL Albumin (3.2-5.5) g/dL Globulin (2.1-4.2) g/dL Albumin/Globulin Ratio (1.0-2.2) Lipase (22-51) U/L ABX Reporting Has patient been on IV antibiotics over the past 48 hours?: No Assessment/Plan - Problem List (1) Nausea & vomiting Impression: (1) Nausea & vomiting Conclusion/Plan: 03/10 pt tolerate full liquid diet, will update carb-control diet tomorrow continue IVF, lab monitor, pain control slight elevated Lipase, pt report he ate very fatty food, but he denies alcohol intake at this time antiemesis PRN IVF of NS, Lab monitor clear liquid diet, bowel rest pain control (2) Alcoholic pancreatitis Conclusion/Plan: 03/10 lipase is down to 89, pain is controlled, tolerate full liquid IVF of NS lab monitor chronic alcoholic pancreatitis, pt had multiple hospital admission for the same problem pain control bowel rest, clear diet IVF of NS lab monitor (3) Alcoholic hepatitis Conclusion/Plan: light improved. Liver enzyme is reduced continue lab monitor hold hepatic toxic agents elevated liver enzyme, chronic, alcoholic hepatitis. In the last admission, pt had SPECT scan, liver is unremarkable except fatty liver advise pt quit alcohol continue lab monitor hold hepatic toxic agents (4) Hypertension Conclusion/Plan: pt had elevated BP in the admission start on Norvasc vital monitor (5) Diabetes Conclusion/Plan: hold Metformin start slide scale, ACHS start hypoglycemia protocol (2) Alcoholic pancreatitis Qualifiers: Chronicity: acute Acute pancreatitis complication: unspecified Qualified Code(s): K85.20 - Alcohol induced acute pancreatitis without necrosis or infection (3) Alcoholic hepatitis Qualifiers: Ascites presence: without ascites Qualified Code(s): K70.10 - Alcoholic hepatitis without ascites (4) Hypertension Qualifiers: Hypertension type: unspecified Qualified Code(s): I10 - Essential (primary) hypertension (5) Diabetes Qualifiers:
[2018-03-10] MEDS: TEMAZEPAM 15 MG CAPSULE PO PRN (20:44)
[2018-03-11] MEDS: oxyCODONE 5 MG TABLET PO PRN ×4 (01:08→21:04)
[2018-03-11] MEDS: SODIUM CHLORIDE FLUSH 0.9% 10 ML SYRINGE IVP SCH ×3 (02:22→16:46)
[2018-03-11] MEDS: ASPIRIN EC 325 MG TABLET PO PRN ×3 (03:05→14:58)
[2018-03-11] MEDS: SODIUM CHLORIDE 0.9% 1,000 ML IV SCH ×3 (04:50→21:05)
[2018-03-11] MEDS: ONDANSETRON 4 MG/2 ML VIAL IVP PRN (05:23)
[2018-03-11 06:49] LABS: EOSINOPHILS # (AUTO) 0.1 10^3/uL (0.0-0.7); EOSINOPHILS % (AUTO) 3.9 %; HGB - HEMOGLOBIN 14.8 g/dL (14.0-18.0); LYMPHOCYTES # (AUTO) 1.4 10^3/uL (1.5-3.5); LYMPHOCYTES % (AUTO) 38.7 %; MEAN CORPUSCULAR HEMOGLOBIN 34.7 pg (27.0-31.0); MEAN CORPUSCULAR HGB CONC 34.9 g/dL (32.0-36.0); MEAN CORPUSCULAR VOLUME 99.2 fL (80.0-94.0); MEAN PLATELET VOLUME 9.2 fL (7.4-11.4); MONOCYTES # (AUTO) 0.5 10^3/uL (0.0-1.0); MONOCYTES % (AUTO) 14.6 %; NEUTROPHILS # (AUTO) 1.5 10^3/uL (1.5-6.6); NEUTROPHILS % (AUTO) 41.8 %; PLT - PLATELET COUNT 164 10^3/uL (130-450); RED BLOOD COUNT 4.28 10^6/uL (4.70-6.10); RED CELL DISTRIBUTION WIDTH 12.7 % (12.0-15.0); WHITE BLOOD COUNT 3.5 x10^3/uL (4.8-10.8)
[2018-03-11 07:07] LABS: ALBUMIN 3.5 g/dL (3.2-5.5); ALBUMIN/GLOBULIN RATIO 1.2 (1.0-2.2); ALKALINE PHOSPHATASE 137 IU/L (42-121); ALT ALANINE AMINOTRANSFERASE 274 IU/L (10-60); AST ASPARTATE AMINOTRANSFERASE 94 IU/L (10-42); BILIRUBIN,TOTAL 2.6 mg/dL (0.2-1.0); BUN - BLOOD UREA NITROGEN < 5 mg/dL (6-20); CALCIUM 8.7 mg/dL (8.5-10.3); CARBON DIOXIDE - CO2 27 mmol/L (21-32); CHLORIDE 97 mmol/L (101-111); CREATININE 0.7 mg/dL (0.6-1.2); GFR - MDRD 137 (>89); GLUCOSE 181 mg/dL (70-100); LIPASE 85 U/L (22-51); SODIUM 135 mmol/L (135-145); TOTAL PROTEIN 6.5 g/dL (6.7-8.2)
[2018-03-11] MEDS: PANTOPRAZOLE 40 MG VIAL IVP SCH (07:14)
[2018-03-11] MEDS: SERTRALINE 50 MG TABLET PO SCH (07:44)
[2018-03-11] MEDS: amLODIPine 5 MG TABLET PO SCH (07:44)
[2018-03-11] MEDS: INSULIN ASPART 300 UNIT/3 ML PEN SUBQ SCH ×4 (07:45→21:08)
[2018-03-11] MEDS: POLYETHYLENE GLYCOL 3350 17 GM PACKET PO SCH (07:47)
--- NOTE | 2018-03-11 16:23 | PROVIDER PROGRESS NOTE ---
Subjective - Prog Note Date Prog Note Date: 03/11/18 - Subjective Pt reports feeling: Improved Subjective: pt report his abdominal is controlled, pt tolerate carb-control regular diet, plan d/c tomorrow Current Medications - Current Medications Current Medications: Active Medications Amlodipine Besylate (Norvasc) 5 mg PO DAILY [facility] Last Admin: 03/11/18 07:44 Dose: 5 mg Aspirin (Ecotrin) 325 mg PO BID PRN PRN Reason: HEADACHE Last Admin: 03/11/18 14:58 Dose: 325 mg Clonidine HCl (Catapres) 0.1 mg PO BID PRN PRN Reason: Hypertensive Emergency Hydromorphone HCl (Dilaudid) 2 mg PO Q6HR PRN PRN Reason: Severe Pain Last Admin: 03/10/18 19:07 Dose: 2 mg Sodium Chloride (Normal Saline 0.9%) 1,000 mls @ 125 mls/hr IV .Q8H [facility] Last Admin: 03/11/18 12:27 Dose: 125 mls/hr Insulin Aspart (Novolog) 1 - 5 unit SUBQ 0800,1200,1700,2100 [facility]; Protocol Last Admin: 03/11/18 12:27 Dose: 3 unit Ondansetron HCl (Zofran Inj) 4 mg IVP Q6HR PRN PRN Reason: Nausea / Vomiting Last Admin: 03/11/18 05:23 Dose: 4 mg Oxycodone HCl (Roxicodone) 5 mg PO Q4HR PRN PRN Reason: Pain 5 to 7 Last Admin: 03/11/18 05:24 Dose: 5 mg Pantoprazole Sodium (Protonix) 40 mg IVP QDAC [facility] Last Admin: 03/11/18 07:14 Dose: 40 mg Polyethylene Glycol (Miralax) 17 gm PO DAILY [facility] Last Admin: 03/11/18 07:47 Dose: Not Given Sertraline HCl (Zoloft) 200 mg PO DAILY [facility] Last Admin: 03/11/18 07:44 Dose: 200 mg Sodium Chloride (Normal Saline Flush 0.9%) 10 ml IVP PRN PRN PRN Reason: NEEDED PER PROVIDER ORDERS Last Admin: 03/10/18 05:29 Dose: 10 ml Sodium Chloride (Normal Saline Flush 0.9%) 10 ml IVP 0100,0900,1700 [facility] Last Admin: 03/11/18 07:14 Dose: 10 ml Temazepam (Restoril) 15 mg PO QPM PRN PRN Reason: Insomnia Last Admin: 03/10/18 20:44 Dose: 15 mg Sertraline HCl 200 mg PO DAILY 03/04/18 diphenhydrAMINE HCl [Diphenhydramine HCl] 50 mg PO QPM 03/04/18 Objective - Vital Signs/Intake & Output Reviewed Vital Signs: Yes Vital Signs: Vital Signs x48h Temp Pulse Resp BP Pulse Ox 03/11/18 15:55 37.1 C 53 L 16 155/92 H 97 03/11/18 13:34 37.4 C 80 18 158/98 H 94 Intake & Output: Intake & Output 03/08/18 03/09/18 03/10/18 03/11/18 23:59 23:59 23:59 23:59 Intake Total 2550 5888 2402.083 Balance 2550 5888 2402.083 - Objective General Appearance: positive: No acute distress, Alert. negative: Lethargic Eyes Bilateral: positive: Normal inspection, PERRL, No lid inflammation, Conjunctivae nml ENT: positive: ENT inspection nml, Pharynx nml, No signs of dehydration. negative: Purulent nasal drainage, Pharyngeal erythema, Oral lesions Neck: positive: Nml inspection, Thyroid nml, No JVD, Trachea midline. negative: Thyromegaly, Lymphadenopathy (R), Lymphadenopathy (L), Stiff neck, Swelling/bruising, Tracheal deviation Respiratory: positive: Chest non-tender, No respiratory distress, Breath sounds nml. negative: Wheezes, Rales, Rhonchi Cardiovascular: positive: Regular rate & rhythm, No murmur, No gallop. negative: Irregularly irregular, Extrasystoles, Tachycardia, Bradycardia, JVD present, Systolic murmur, Diastolic murmur Peripheral Pulses: 2+ Radial (R), 2+ Radial (L), 2+ Dorsalis pedis (R), 2+ Dorsalis pedis (L) Abdomen: positive: Non-tender, No organomegaly, Nml bowel sounds, No distention. negative: Tenderness, Guarding, Rebound Back: positive: Nml inspection. negative: CVA tenderness (R), CVA tenderness (L) Skin: positive: Color nml, No rash, Warm, Dry. negative: Cyanosis, Diaphoresis, Pallor Extremities: positive: Non-tender, Full ROM, Nml appearance. negative: Calf tenderness, Joint swelling, Jamila's sign/cords Neurologic/Psychiatric: positive: Oriented x3, Motor nml, Sensation nml, Mood/affect nml. negative: Weakness, Sensory loss, Facial droop, Slurred/abnml speech, Depressed mood/affect - Lab Results Fish Bones: 03/11/18 06:20 03/11/18 06:20 Other Labs: Lab Results x24hrs 03/11/18 03/11/18 03/11/18 Range/Units 11:49 07:40 06:20 WBC 3.5 L (4.8-10.8) x10^3/uL RBC 4.28 L (4.70-6.10) 10^6/uL Hgb 14.8 (14.0-18.0) g/dL Hct 42.4 (42.0-52.0) % MCV 99.2 H (80.0-94.0) fL MCH 34.7 H (27.0-31.0) pg MCHC 34.9 (32.0-36.0) g/dL RDW 12.7 (12.0-15.0) % Plt Count 164 (130-450) 10^3/uL MPV 9.2 (7.4-11.4) fL Neut # (Auto) 1.5 (1.5-6.6) 10^3/uL Lymph # (Auto) 1.4 L (1.5-3.5) 10^3/uL [place] # (Auto) 0.5 (0.0-1.0) 10^3/uL Eos # (Auto) 0.1 (0.0-0.7) 10^3/uL Baso # (Auto) 0.0 (0.0-0.1) 10^3/uL Absolute Nucleated RBC 0.00 x10^3/uL Nucleated RBC % 0.1 /100WBC Sodium (135-145) mmol/L Potassium (3.5-5.0) mmol/L Chloride (101-111) mmol/L Carbon Dioxide (21-32) mmol/L Anion Gap (6-13) BUN (6-20) mg/dL Creatinine (0.6-1.2) mg/dL Estimated GFR (MDRD) (>89) Glucose (70-100) mg/dL POC Whole Bld Glucose 241 H 197 H (70 - 100) mg/dL Calcium (8.5-10.3) mg/dL Total Bilirubin (0.2-1.0) mg/dL AST (10-42) IU/L ALT (10-60) IU/L Alkaline Phosphatase (42-121) IU/L Total Protein (6.7-8.2) g/dL Albumin (3.2-5.5) g/dL Globulin (2.1-4.2) g/dL Albumin/Globulin Ratio (1.0-2.2) Lipase (22-51) U/L 03/11/18 03/10/18 03/10/18 Range/Units 06:20 20:33 16:37 WBC (4.8-10.8) x10^3/uL RBC (4.70-6.10) 10^6/uL Hgb (14.0-18.0) g/dL Hct (42.0-52.0) % MCV (80.0-94.0) fL MCH (27.0-31.0) pg MCHC (32.0-36.0) g/dL RDW (12.0-15.0) % Plt Count (130-450) 10^3/uL MPV (7.4-11.4) fL Neut # (Auto) (1.5-6.6) 10^3/uL Lymph # (Auto) (1.5-3.5) 10^3/uL [place] # (Auto) (0.0-1.0) 10^3/uL Eos # (Auto) (0.0-0.7) 10^3/uL Baso # (Auto) (0.0-0.1) 10^3/uL Absolute Nucleated RBC x10^3/uL Nucleated RBC % /100WBC Sodium 135 (135-145) mmol/L Potassium 3.5 (3.5-5.0) mmol/L Chloride 97 L (101-111) mmol/L Carbon Dioxide 27 (21-32) mmol/L Anion Gap 11.0 (6-13) BUN < 5 L (6-20) mg/dL Creatinine 0.7 (0.6-1.2) mg/dL Estimated GFR (MDRD) 137 (>89) Glucose 181 H (70-100) mg/dL POC Whole Bld Glucose 204 H 175 H (70 - 100) mg/dL Calcium 8.7 (8.5-10.3) mg/dL Total Bilirubin 2.6 H (0.2-1.0) mg/dL AST 94 H (10-42) IU/L ALT 274 H (10-60) IU/L Alkaline Phosphatase 137 H (42-121) IU/L Total Protein 6.5 L (6.7-8.2) g/dL Albumin 3.5 (3.2-5.5) g/dL Globulin 3.0 (2.1-4.2) g/dL Albumin/Globulin Ratio 1.2 (1.0-2.2) Lipase 85 H (22-51) U/L ABX Reporting Has patient been on IV antibiotics over the past 48 hours?: No Assessment/Plan - Problem List (1) Nausea & vomiting Impression: Conclusion/Plan: 03/11, pt tolerate regular carbo-control diet, no N/V/D, abdominal pain is controlled plan d/c tomorrow, with nutrition consult, pain meds, antiemesis meds, follow GI as out-pt 03/10 pt tolerate full liquid diet, will update carb-control diet tomorrow continue IVF, lab monitor, pain control slight elevated Lipase, pt report he ate very fatty food, but he denies alcohol intake at this time antiemesis PRN IVF of NS, Lab monitor clear liquid diet, bowel rest pain control (2) Alcoholic pancreatitis Conclusion/Plan: improved. no n/v/d, tolerate regular diet, Lipase 89 03/10 lipase is down to 89, pain is controlled, tolerate full liquid IVF of NS lab monitor chronic alcoholic pancreatitis, pt had multiple hospital admission for the same problem pain control bowel rest, clear diet IVF of NS lab monitor (3) Alcoholic hepatitis Conclusion/Plan: 03/11, continue improved liver enzyme light improved. Liver enzyme is reduced continue lab monitor hold hepatic toxic agents elevated liver enzyme, chronic, alcoholic hepatitis. In the last admission, pt had SPECT scan, liver is unremarkable except fatty liver advise pt quit alcohol continue lab monitor hold hepatic toxic agents (4) Hypertension Conclusion/Plan: pt had elevated BP in the admission start on Norvasc vital monitor (5) Diabetes Conclusion/Plan: hold Metformin start slide scale, ACHS start hypoglycemia protocol (2) Alcoholic pancreatitis Qualifiers: Chronicity: acute Acute pancreatitis complication: unspecified Qualified Code(s): K85.20 - Alcohol induced acute pancreatitis without necrosis or infection (3) Alcoholic hepatitis Qualifiers: Ascites presence: without ascites Qualified Code(s): K70.10 - Alcoholic hepatitis without ascites (4) Hypertension Qualifiers: Hypertension type: unspecified Qualified Code(s): I10 - Essential (primary) hypertension (5) Diabetes Qualifiers:
[2018-03-11] MEDS: TEMAZEPAM 15 MG CAPSULE PO PRN (21:04)
[2018-03-12] MEDS: oxyCODONE 5 MG TABLET PO PRN (02:57)
[2018-03-12] MEDS: SODIUM CHLORIDE 0.9% 1,000 ML IV SCH (05:25)
[2018-03-12 06:04] LABS: BASOPHILS % (AUTO) 1.2 %; EOSINOPHILS # (AUTO) 0.1 10^3/uL (0.0-0.7); EOSINOPHILS % (AUTO) 3.7 %; HGB - HEMOGLOBIN 15.1 g/dL (14.0-18.0); LYMPHOCYTES # (AUTO) 1.4 10^3/uL (1.5-3.5); LYMPHOCYTES % (AUTO) 38.3 %; MEAN CORPUSCULAR HEMOGLOBIN 34.4 pg (27.0-31.0); MEAN CORPUSCULAR HGB CONC 34.9 g/dL (32.0-36.0); MEAN CORPUSCULAR VOLUME 98.7 fL (80.0-94.0); MEAN PLATELET VOLUME 9.4 fL (7.4-11.4); MONOCYTES # (AUTO) 0.6 10^3/uL (0.0-1.0); NEUTROPHILS # (AUTO) 1.5 10^3/uL (1.5-6.6); NEUTROPHILS % (AUTO) 40.8 %; PLT - PLATELET COUNT 209 10^3/uL (130-450); RED BLOOD COUNT 4.39 10^6/uL (4.70-6.10); RED CELL DISTRIBUTION WIDTH 12.7 % (12.0-15.0); WHITE BLOOD COUNT 3.7 x10^3/uL (4.8-10.8)
[2018-03-12 06:09] LABS: ALBUMIN 3.6 g/dL (3.2-5.5); ALBUMIN/GLOBULIN RATIO 1.2 (1.0-2.2); BILIRUBIN,TOTAL 2.4 mg/dL (0.2-1.0); CALCIUM 8.9 mg/dL (8.5-10.3); CREATININE 0.7 mg/dL (0.6-1.2); MAGNESIUM 1.6 mg/dL (1.7-2.8); TOTAL PROTEIN 6.6 g/dL (6.7-8.2)
[2018-03-12] MEDS: SODIUM CHLORIDE FLUSH 0.9% 10 ML SYRINGE IVP SCH ×2 (06:47→09:49)
[2018-03-12] MEDS: PANTOPRAZOLE 40 MG VIAL IVP SCH (06:47)
[2018-03-12] MEDS ORDERED: MAGNESIUM OXIDE 400 MG TABLET PO SCH (08:00)
[2018-03-12 08:34] VITALS: BP 161/103
[2018-03-12] MEDS ORDERED: amLODIPine 5 MG TABLET PO SCH (09:00)
[2018-03-12] MEDS: SERTRALINE 50 MG TABLET PO SCH (09:46)
[2018-03-12] MEDS: INSULIN ASPART 300 UNIT/3 ML PEN SUBQ SCH ×2 (09:48→12:05)
[2018-03-12] MEDS: POLYETHYLENE GLYCOL 3350 17 GM PACKET PO SCH (09:49)
--- NOTE | 2018-03-12 11:17 | Discharge Plan ---
Discharge Plan Disposition: Home, Self Care Condition: Poor Prescriptions: oxyCODONE [Roxicodone] 5 mg PO Q4HR PRN #20 tablet PRN Reason: Pain 5 to 7 Ondansetron HCl [Zofran] 4 mg PO Q6H PRN #20 tablet PRN Reason: Nausea / Vomiting Diet: Diabetic Activity Restrictions: Activity as Tolerated Shower Restrictions: No (fall precaution) Instruction Topics: Diabetes Alcohol Consumption, Pancreatitis Additional Instructions or Follow Up instructions: You may followup your PCP in one week, follow up steel division supervisor as out-pt. Please follow up apartment property manager's recommendations for your diet. You desire to continue Metformin, please follow up your medications as the schedule. You are prescribe oxycodone and Zofran as needed. Should your symptoms return or worsen, you may present ER or call 911 for help. No Smoking: If you smoke, Please STOP! Call for help. Follow-up with: MARCELINO WILLINGHAM MD [Primary Care Provider] -
--- NOTE | 2018-03-12 11:53 | DISCHARGE SUMMARY ---
Discharge Summary Discharge Date: 03/12/18 Discharging Provider: ROSALES Primary Care Provider: Dr. Andersen Condition at Discharge: Poor Discharge Disposition: 01 Home, Self Care Discharge Facility Name: home - DIAGNOSES Admission Diagnoses: (1) Nausea & vomiting (2) Alcoholic pancreatitis (3) Alcoholic hepatitis (4) Hypertension (5) Diabetes (6) Non compliance w medication regimen Discharge Diagnoses with Status of Each Condition: 1) Nausea & vomiting resolved. after treatment, pt denies any more N/V/D or any abdominal pain. pt tolerate regular food without any issue. Lipase is down to 80. consult with infrastructure administrator for his diet. pt is happy to be d/c today. (2) acute on chronic Alcoholic pancreatitis resolved. (3) Alcoholic hepatitis improved. pt is strongly advise quit alcoholism (4) Hypertension pt decline any BP meds for home (5) Diabetes pt still decline insulin to control his DM2, continue Metformin, follow up PCP (6) Non compliance w medication regimen discuss with pt, advise pt medical compliance - HPI History of Present Illness: is a 27-year-old gentleman with a past medical history significant for hypertriglyceridemia, morbid obesity, depression, alcohol abuse, fatty liver disease, insulin-dependent diabetes and recurrent pancreatitis who presented to the emergency department with a chief complaint of nausea, vomiting and abdominal pain. Pt was just discharged yesterday. At the discharge, pt tolerated his carb-controlled diet, no nausea, vomiting or diarrhea or abdominal pain. His Lipase is close to normal. Pt report after he was discharged for hospital, he ate lots of fatty and cheese food, but he denies drinking any alcohol, the he felt abdominal pain again, and nausea and vomiting and loose stool. He state the symptoms were similar as he had before with acute pancreatitis. Lipase is slight elevated today 111, his liver enzyme is still elevated. pt denies chest pain, shortness of breath, fever, chill, headache, vision change. - HOSPITAL COURSE Hospital Course: pt was admitted for acute on chronic alcoholic pancreatitis. pt was treated with bowel rest, high volume IVF of NS. after treatment, pt tolerated carb-control diet, no abdominal pain, no N/V/D, lipase is down to 89. pt request to be d/c to home. pt refused to change to use insulin for his DM2 control, instead he still wants Metformin, pt also decline any blood pressure medications for d/c. pt had a infrastructure administrator consult for his diet. - ALLERGIES Allergies/Adverse Reactions: Allergies Allergy/AdvReac Type Severity Reaction Status Date / Time Sulfa (Sulfonamide Allergy Intermediate Rash Verified 03/09/18 13:13 Antibiotics) - MEDICATIONS Home Medications: Ambulatory Orders Medication Instructions Recorded Confirmed Sertraline HCl 200 mg PO DAILY 03/04/18 03/09/18 diphenhydrAMINE HCl 50 mg PO QPM 03/04/18 03/09/18 [Diphenhydramine HCl] metFORMIN [Glucophage] 850 mg PO BID #30 tablet 03/08/18 03/09/18 Ondansetron HCl [Zofran] 4 mg PO Q6H PRN #20 tablet 03/12/18 oxyCODONE [Roxicodone] 5 mg PO Q4HR PRN #20 tablet 03/12/18 - PHYSICAL EXAM AT DISCHARGE General Appearance: positive: No acute distress, Alert. negative: Lethargic Eyes Bilateral: positive: Normal inspection, PERRL. negative: No lid inflammation, Conjunctivae nml ENT: positive: ENT inspection nml, Pharynx nml, No signs of dehydration. negative: Purulent nasal drainage, Pharyngeal erythema, Oral lesions Neck: positive: Nml inspection, Thyroid nml, No JVD, Trachea midline. negative: Thyromegaly, Lymphadenopathy (R), Lymphadenopathy (L) Respiratory: positive: Chest non-tender, No respiratory distress, Breath sounds nml. negative: Wheezes, Rales, Rhonchi Cardiovascular: positive: Regular rate & rhythm, No murmur, No gallop. negative: Irregularly irregular, Extrasystoles, Tachycardia, Bradycardia, JVD present, Systolic murmur, Diastolic murmur Peripheral Pulses: positive: 2+ Abdomen: positive: Non-tender, No organomegaly, Nml bowel sounds, No distention. negative: Tenderness, Guarding, Rebound Back: positive: Nml inspection. negative: CVA tenderness (R), CVA tenderness (L) Skin: positive: No rash, Warm, Dry. negative: Cyanosis, Diaphoresis, Pallor Extremities: positive: Non-tender, Full ROM, Nml appearance. negative: Calf tenderness, Joint swelling, Jamila's sign/cords Neurologic/Psychiatric: positive: Oriented x3, Motor nml, Sensation nml, Mood/affect nml. negative: Weakness, Sensory loss, Facial droop, Slurred/abnml speech, Depressed mood/affect - LABS Result Diagrams: 03/12/18 05:13 03/12/18 05:13 - FOLLOW UP Follow Up: You may followup your PCP in one week, follow up director of residential services as out-pt. Please follow up infrastructure administrator's recommendations for your diet. You desire to continue Metformin, please follow up your medications as the schedule. You are prescribe oxycodone and Zofran as needed. Should your symptoms return or worsen, you may present ER or call 911 for help. - TIME SPENT Time Spent in Discharge (Minutes): 45
== END 2018-03-12 12:05 | disposition home or self-care (01) | DRG 439 ==
LOC: ED 12:44 → MS2 16:46
PROVIDERS: ADMIT Nurse Practitioner Gerontology; ATTEND Nurse Practitioner Gerontology
DX: K85.20 Alcohol induced acute pancreatitis without necrosis or infection (principal); F10.188 Alcohol abuse with other alcohol-induced disorder; K86.0 Alcohol-induced chronic pancreatitis; K70.10 Alcoholic hepatitis without ascites; I10 Essential (primary) hypertension; E11.9 Type 2 diabetes mellitus without complications; E78.1 Pure hyperglyceridemia; E66.01 Morbid (severe) obesity due to excess calories; Z68.35 Body mass index [BMI] 35.0-35.9, adult; K76.0 Fatty (change of) liver, not elsewhere classified; T38.3X6A Underdosing of insulin and oral hypoglycemic [antidiabetic] drugs, initial encounter; F32.9 Major depressive disorder, single episode, unspecified; F41.0 Panic disorder [episodic paroxysmal anxiety]; F42.9 Obsessive-compulsive disorder, unspecified; F17.290 Nicotine dependence, other tobacco product, uncomplicated; Z79.84 Long term (current) use of oral hypoglycemic drugs
CPT/HCPCS: 36415; 80053; 80320; 81001; 81003; 83036; 83690; 83735; 85025; 87086; 96361; 96374; 99283; 99285

== ENCOUNTER 2018-06-17 19:01 | Emergency (ER) | payer OTHER, BC, MEDICAID ==
[2018-06-17] MEDS ORDERED: HYDROcod/ACET 5/325 Prepack 4 PO STA (19:35)
[2018-06-17] MEDS ORDERED: TETANUS/DIPHTHERIA/PERTUSSIS 0.5 ML SYRINGE IM ONE (19:37)
--- NOTE | 2018-06-17 19:37 | ED Physician Documentation ---
History of Present Illness - Stated complaint Stated Complaint: LT HAND BURN - Chief complaint Chief Complaint: Burn - History obtained from History obtained from: Patient - History of Present Illness Timing: Today (At 5:40 PM today he spilled hot water on the back of his left, nondominant hand at work. Pain is a 7.) Review of Systems Constitutional: reports: Reviewed and negative Cardiac: reports: Reviewed and negative Respiratory: reports: Reviewed and negative PD PAST MEDICAL HISTORY - Past Medical History Cardiovascular: Hypertension, High cholesterol Respiratory: Other Neuro: Headaches Endocrine/Autoimmune: Type 2 diabetes GI: Pancreatitis, Hepatitis, Other : None HEENT: None Psych: Depression, Anxiety, Panic attacks, Obsessive compulsive disorder Musculoskeletal: None Derm: None - Past Surgical History Past Surgical History: No - Present Medications Home Medications: Ambulatory Orders Medication Instructions Recorded Confirmed metFORMIN [Glucophage] 850 mg PO BID #30 tablet 03/08/18 06/17/18 Buspirone HCl 15 mg PO BID 06/17/18 06/17/18 Escitalopram [Lexapro] 10 mg PO DAILY 06/17/18 06/17/18 Eszopiclone [Lunesta] 1 tab PO PRN PRN 06/17/18 06/17/18 Gabapentin 100 mg PO TID 06/17/18 06/17/18 Hydrocodone/Acetaminophen 1 - 2 each PO Q6H PRN #7 tablet 06/17/18 [Hydrocodon-Acetaminophen 5-325] Lorazepam [Ativan] 1 mg PO PRN PRN 06/17/18 06/17/18 - Allergies Allergies/Adverse Reactions: Allergies Allergy/AdvReac Type Severity Reaction Status Date / Time Sulfa (Sulfonamide Allergy Intermediate Rash Verified 06/17/18 19:15 Antibiotics) - Social History Does the pt smoke?: No Smoking Status: Never smoker Does the pt drink ETOH?: Yes Does the pt have substance abuse?: No - Immunizations Immunizations are current?: Yes - POLST Patient has POLST: No POLST Status: Full Code PD ED PE NORMAL - Vitals Vital signs reviewed: Yes - General General: Alert and oriented X 3, No acute distress - Extremities Extremities: Other (Scattered and mild first-degree morrissey over the dorsum of the right hand without blistering or limited range of motion. TBSA much less than 1%) - Neuro Neuro: Alert and oriented X 3, Normal speech Results - Vitals Vitals: Vital Signs - 24 hr 06/17/18 19:09 Temperature 36.4 C L Heart Rate 72 Respiratory 16 Rate Blood Pressure 131/84 H O2 Saturation 99 Oxygen O2 Source Room air Departure - Departure Disposition: 01 Home, Self Care Clinical Impression: Burn of hand, left, first degree Qualifiers: Encounter type: initial encounter Burn of hand location: dorsum Qualified Code(s): T23.162A - Burn of first degree of back of left hand, initial encounter Condition: Good Record reviewed to determine appropriate education?: Yes Instructions: ED Burn D 1st Prescriptions: Hydrocodone/Acetaminophen [Hydrocodon-Acetaminophen 5-325] 1 - 2 each PO Q6H PRN #7 tablet PRN Reason: pain Comments: Return for new or worsening symptoms. Do not drink or drive while taking narcotic pain medication. Note that many narcotic pain relievers also contain Tylenol/acetaminophen. Please ensure that your total dose of acetaminophen from all sources does not exceed 3 g (3000 mg) per day. You may get constipated while on this medication. Take a stool softener such as Colace twice a day while you are on it. Also add an [id number] laxative such as senna or MiraLAX on any day that you do not have a bowel movement. If you received a narcotic pain medication or sedative while in the emergency department, do not drive for the next 24 hours. Your blood pressure was elevated today on check into the emergency department. This does not mean that you have hypertension, it is a common phenomenon to come to the emergency department and have elevated blood pressure. I recommend that you see your primary care physician within the week to have it rechecked when you are feeling better.
[2018-06-17 20:14] VITALS: BP 133/86
== END 2018-06-17 20:15 | disposition home or self-care (01) ==
LOC: ED 19:01
DX: T23.162A Burn of first degree of back of left hand, initial encounter (principal); T31.0 Burns involving less than 10% of body surface; X12.XXXA Contact with other hot fluids, initial encounter; Y93.G3 Activity, cooking and baking; Y92.89 Other specified places as the place of occurrence of the external cause; Y99.0 Civilian activity done for income or pay; Z23 Encounter for immunization; I10 Essential (primary) hypertension; E11.9 Type 2 diabetes mellitus without complications; Z79.84 Long term (current) use of oral hypoglycemic drugs
CPT/HCPCS: 1040M; 90471; 90715; 99282; 99283

== ENCOUNTER 2019-02-14 03:34 | Outpatient (CLI) | payer BC, MEDICAID | END 2019-02-14 03:35 | disposition critical access hospital (66) | LOC: EMS 03:34 | PROVIDERS: ATTEND Surgery | DX: R55 Syncope and collapse (principal) | CPT/HCPCS: A0425; A0427 ==

== ENCOUNTER 2019-02-14 03:54 | Emergency (ER) | payer BC, MEDICAID ==
--- NOTE | 2019-02-14 04:08 | ED Physician Documentation ---
PD HPI SYNCOPE - Stated complaint Stated Complaint: SYNCOPE,DM,LEFT KNEE PAIN, SWEATING - History obtained from History obtained from: Patient, Family, EMS - History of Present Illness Witnessed: Witnessed Timing - onset: Today Duration: Seconds Preceding symptoms: Diaphoresis, Light headed. No: Headache, Vision changes, Chest pain, Palpitations, Dyspnea, Abdominal pain, Nausea / vomiting Associated symptoms: Diaphoresis. No: Seizure, Incontinant of urine, Incontinant of stool, Headache, Vision changes, Dyspnea, Nausea / vomiting, Abdo david pain Contributing factors: No: Recent med change, Decreased PO intake, Noxious stimulae, Emotional upset, Exertion Injury occurred: Fell Similar symptoms before: Has not had sx before Recently seen: Not recently seen - Additional information Additional information: This is a 28-year-old who lives with his parents diabetic complaints that he passed out in his parents bedroom tonight. Approximately an hour and a half prior to presentation he gave himself his typical 40 units of Lantus insulin and within a few minutes he said he felt off just very dizzy so he went into his parents bedroom where he proceeded to pass out on the floor. His mom relates that he looked really pale and then his he just crumpled to the ground. His parents estimate that he was out for about 15 to 20 seconds. There was no seizure activity or incontinence. Patient says that he feels fine now although his left knee hurts a little if he moves it. He is felt chilled over the past several days but otherwise denies any symptoms of illness. He has not had a sore throat or runny nose, no coughing or shortness of breath. He did not have chest pain or palpitations tonight denies dysuria. No fever. He did eat dinner last night and there was no unusual activity. He did run out of glucose test strips several days ago and has not been checking his blood sugar. When he came to in the bedroom his mom gave him juice. They did not check his blood sugar however the ambulance checked his blood sugar on their arrival it was 112. He has never had this happen before. Patient's primary care provider is at the [facility]. 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 The patient does vape nicotine and cbd oil. Review of Systems Constitutional: reports: Chills. denies: Fever Eyes: denies: Loss of vision Ears: denies: Ear pain Nose: denies: Rhinorrhea / runny nose, Congestion Throat: denies: Sore throat Cardiac: denies: Chest pain / pressure, Palpitations Respiratory: denies: Dyspnea, Cough GI: denies: Abdominal Pain, Nausea, Vomiting, Diarrhea : denies: Dysuria, Frequency Skin: denies: Rash Musculoskeletal: reports: Extremity pain. denies: Neck pain, Back pain Neurologic: reports: Syncope, LOC. denies: Generalized weakness, Focal weakness, Numbness, Head injury Endocrine: reports: Other (Patient is a diabetic. He denies thyroid disorder.) PD PAST MEDICAL HISTORY - Present Medications Home Medications: Ambulatory Orders Medication Instructions Recorded Confirmed Gabapentin 800 mg PO TID 02/14/19 02/14/19 Insulin Glargine [Lantus Solostar] 40 units SUBQ QPM 02/14/19 02/14/19 - Allergies Allergies/Adverse Reactions: Allergies Allergy/AdvReac Type Severity Reaction Status Date / Time Sulfa (Sulfonamide Allergy Intermediate Rash Verified 02/14/19 04:03 Antibiotics) PD ED PE NORMAL - Vitals Vital signs reviewed: Yes - General General: Alert and oriented X 3, No acute distress, Well developed/nourished - HEENT HEENT: Atraumatic, PERRL, EOMI, Moist mucous membranes, Pharynx benign, Other (No tongue laceration) - Neck Neck: Supple, no meningeal sign, No adenopathy - Cardiac Cardiac: RRR, No murmur - Respiratory Respiratory: No respiratory distress, Clear bilaterally - Abdomen Abdomen: Normal bowel sounds, Soft, Non tender, Non distended, No organomegaly - Extremities Extremities: No deformity, No edema, Other (No swelling or bruising to the left knee. It is not tender to palpation but he does complain of some discomfort with movement. Stable to varus and valgus stresses.) - Neuro Neuro: Alert and oriented X 3, mangle catcher 2-12 intact, No motor deficit, No sensory deficit, Normal speech - Psych Psych: Normal mood, Normal affect Results - Vitals Vitals: Vital Signs - 24 hr 02/14/19 02/14/19 02/14/19 03:57 04:15 05:15 Temperature 36.6 C Heart Rate 75 68 63 Respiratory 23 20 14 Rate Blood Pressure 149/93 H 134/80 H 119/73 O2 Saturation 98 95 95 02/14/19 05:47 Temperature Heart Rate 76 Respiratory 19 Rate Blood Pressure 131/77 H O2 Saturation 96 Oxygen O2 Source Room air - EKG (time done) 0357 Rate: Rate (enter#) (66) Rhythm: NSR Intervals: Normal ND. No: Prolonged QT Ischemia: Non specific changes Compare to prior EKG: Old EKG unavailable - Labs Labs: Laboratory Tests 02/14/19 02/14/19 02/14/19 04:05 04:05 04:05 WBC 8.2 RBC 5.15 Hgb 15.9 Hct 44.3 MCV 86.0 MCH 30.9 MCHC 35.9 RDW 11.5 L Plt Count 207 MPV 10.5 Neut # (Auto) 4.3 Lymph # (Auto) 3.1 [place] # (Auto) 0.6 Eos # (Auto) 0.1 Baso # (Auto) 0.0 Absolute Nucleated RBC 0.00 Nucleated RBC % 0.0 Sodium 136 Potassium 3.7 Chloride 99 L Carbon Dioxide 28 Anion Gap 9.0 BUN 12 Creatinine 1.0 Estimated GFR (MDRD) 90 Glucose 223 H Calcium 9.6 Total Bilirubin 2.1 H AST 13 ALT 15 Alkaline Phosphatase 70 Total Protein 7.5 Albumin 4.5 Globulin 3.0 Albumin/Globulin Ratio 1.5 Lipase 18 L TSH 2.85 Urine Color Urine Clarity Urine pH Ur Specific [place] Urine Protein Urine Glucose (UA) Urine Ketones Urine Occult Blood Urine Nitrite Urine Bilirubin Urine Urobilinogen Ur Leukocyte Esterase Ur Microscopic Review Urine Culture Comments Urine Opiates Screen Ur Oxycodone Screen Urine Methadone Screen Ur Propoxyphene Screen Ur Barbiturates Screen Ur Tricyclics Screen Ur Phencyclidine Scrn Ur Amphetamine Screen U Methamphetamines Scrn U Benzodiazepines Scrn Urine Cocaine Screen U Cannabinoids Screen Ethyl Alcohol < 5.0 Serum Ketones NEGATIVE 02/14/19 05:25 WBC RBC Hgb Hct MCV MCH MCHC RDW Plt Count MPV Neut # (Auto) Lymph # (Auto) [place] # (Auto) Eos # (Auto) Baso # (Auto) Absolute Nucleated RBC Nucleated RBC % Sodium Potassium Chloride Carbon Dioxide Anion Gap BUN Creatinine Estimated GFR (MDRD) Glucose Calcium Total Bilirubin AST ALT Alkaline Phosphatase Total Protein Albumin Globulin Albumin/Globulin Ratio Lipase TSH Urine Color YELLOW Urine Clarity CLEAR Urine pH 6.0 Ur Specific [place] <=1.005 Urine Protein NEGATIVE Urine Glucose (UA) NEGATIVE Urine Ketones NEGATIVE Urine Occult Blood NEGATIVE Urine Nitrite NEGATIVE Urine Bilirubin NEGATIVE Urine Urobilinogen 0.2 (NORMAL) Ur Leukocyte Esterase NEGATIVE Ur Microscopic Review NOT INDICATED Urine Culture Comments NOT INDICATED Urine Opiates Screen NEGATIVE Ur Oxycodone Screen NEGATIVE Urine Methadone Screen NEGATIVE Ur Propoxyphene Screen NEGATIVE Ur Barbiturates Screen NEGATIVE Ur Tricyclics Screen NEGATIVE Ur Phencyclidine Scrn NEGATIVE Ur Amphetamine Screen NEGATIVE U Methamphetamines Scrn NEGATIVE U Benzodiazepines Scrn NEGATIVE Urine Cocaine Screen NEGATIVE U Cannabinoids Screen POSITIVE H Ethyl Alcohol Serum Ketones PD MEDICAL DECISION MAKING - ED course Complexity details: reviewed old records (mahesh), reviewed results, re-evaluated patient, d/w patient, d/w family ED course: Patient had a liter of fluids. On reevaluation he said he was feeling better. He is not anemic. His bilirubin was up to 2.1 but no elevation of his liver enzymes glucose was elevated normal electrolytes negative ketones. Urinalysis was negative. His alcohol level was negative. He says he has not drank in 6 months. 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 Without a blood sugar check when he was symptomatic it is hard to know for sure whether or not he was hypoglycemic but he felt like he is felt in the past when he was hypoglycemic. He has not had test strips at home for a couple of days. He is certain that he could not have administered regular insulin just because he does not have any at the house and his Lantus is in a pen that he had used previously. He was given something to eat here. He has been up and walking on the leg. There is no indication for x-ray of that knee is not swollen or tender to palpation. Mom says that he is been experiencing some difficulty with the knee for a while anyway. He is to be discharged home with outpatient follow-up. He is can get glucose test strips today and they are going to molded goods spot picker some glucose sticks from the pharmacy to have on hand. If he has another syncopal episode he may need to consider cardiac monitoring. Departure - Departure Disposition: 01 Home, Self Care Clinical Impression: Syncope Qualifiers: Syncope type: unspecified Qualified Code(s): R55 - Syncope and collapse Condition: Good Instructions: ED Fainting Unkn Cause Follow-Up: Francisco Fong MD [Primary Care Provider] - Comments: Be sure to have some glucose strips so that you can monitor your blood sugars particularly if you are administering insulin. Follow-up with your primary care provider for reevaluation. Glucose sticks or tablets can be purchased from the pharmacy to have on hand in the event of a hypoglycemic reaction. Return if you experience symptoms of chest pain, shortness of breath, repeat fainting episode or other problems arise.
[2019-02-14] MEDS ORDERED: SODIUM CHLORIDE 0.9% 1,000 ML IV ONE (04:09)
[2019-02-14 04:20] LABS: BASOPHILS % (AUTO) 0.4 %; EOSINOPHILS # (AUTO) 0.1 10^3/uL (0.0-0.7); EOSINOPHILS % (AUTO) 1.6 %; HGB - HEMOGLOBIN 15.9 g/dL (14.0-18.0); LYMPHOCYTES # (AUTO) 3.1 10^3/uL (1.5-3.5); LYMPHOCYTES % (AUTO) 38.3 %; MEAN CORPUSCULAR HEMOGLOBIN 30.9 pg (27.0-31.0); MEAN CORPUSCULAR HGB CONC 35.9 g/dL (32.0-36.0); MEAN PLATELET VOLUME 10.5 fL (7.4-11.4); MONOCYTES # (AUTO) 0.6 10^3/uL (0.0-1.0); NEUTROPHILS # (AUTO) 4.3 10^3/uL (1.5-6.6); NEUTROPHILS % (AUTO) 52.5 %; PLT - PLATELET COUNT 207 10^3/uL (130-450); RED BLOOD COUNT 5.15 10^6/uL (4.70-6.10); RED CELL DISTRIBUTION WIDTH 11.5 % (12.0-15.0); WHITE BLOOD COUNT 8.2 x10^3/uL (4.8-10.8)
[2019-02-14 04:25] LABS: KETONES, SERUM (ACETEST) NEGATIVE (NEGATIVE)
[2019-02-14 04:31] LABS: ALBUMIN 4.5 g/dL (3.2-5.5); ALBUMIN/GLOBULIN RATIO 1.5 (1.0-2.2); ALKALINE PHOSPHATASE 70 IU/L (42-121); ALT ALANINE AMINOTRANSFERASE 15 IU/L (10-60); AST ASPARTATE AMINOTRANSFERASE 13 IU/L (10-42); BILIRUBIN,TOTAL 2.1 mg/dL (0.2-1.0); BUN - BLOOD UREA NITROGEN 12 mg/dL (6-20); CALCIUM 9.6 mg/dL (8.5-10.3); CARBON DIOXIDE - CO2 28 mmol/L (21-32); CHLORIDE 99 mmol/L (101-111); GFR - MDRD 90 (>89); GLUCOSE 223 mg/dL (70-100); LIPASE 18 U/L (22-51); SODIUM 136 mmol/L (135-145); TOTAL PROTEIN 7.5 g/dL (6.7-8.2)
[2019-02-14 05:35] LABS: MUDS CUTOFF CONCENTRATIONS CUTOFF CONC BELOW:
[2019-02-14 05:38] LABS: BILIRUBIN,URINE NEGATIVE (NEGATIVE); GLUCOSE, URINE (UA) NEGATIVE (NEGATIVE); KETONES,URINE (UA) NEGATIVE (NEGATIVE); LEUKOCYTE ESTERASE, URINE NEGATIVE (NEGATIVE); NITRITE,URINE NEGATIVE (NEGATIVE); OCCULT BLOOD,URINE NEGATIVE (NEGATIVE); PROTEIN,URINE NEGATIVE (NEGATIVE); UROBILINOGEN,URINE 0.2 (NORMAL) E.U./dL (NORMAL)
[2019-02-14 05:39] LABS: CLARITY,URINE CLEAR (CLEAR)
[2019-02-14 05:48] LABS: AMPHETAMINE SCREEN,URINE NEGATIVE (NEGATIVE); BENZODIAZEPINES SCREEN, URINE NEGATIVE (NEGATIVE); COCAINE SCREEN URINE NEGATIVE (NEGATIVE); METHADONE SCREEN, URINE NEGATIVE (NEGATIVE); METHAMPHETAMINES SCREEN, URINE NEGATIVE (NEGATIVE); OPIATE SCREEN, URINE NEGATIVE (NEGATIVE); OXYCODONE SCREEN, URINE NEGATIVE (NEGATIVE); PROPOXYPHENE SCREEN, URINE NEGATIVE (NEGATIVE); TRICYCLIC ANTIDEPRESSANT,URINE NEGATIVE (NEGATIVE)
[2019-02-14 06:21] VITALS: BP 126/75
== END 2019-02-14 06:17 | disposition home or self-care (01) ==
LOC: EDUNIT# → ED 03:54
DX: R55 Syncope and collapse (principal); E11.9 Type 2 diabetes mellitus without complications; Z79.4 Long term (current) use of insulin
CPT/HCPCS: 36415; 80053; 80306; 80320; 81001; 81003; 82009; 82803; 83690; 84443; 85025; 87086; 93005; 96360; 99283